=== PATIENT | male | born 1955 | race Caucasian/White ===

== ENCOUNTER 2018-03-02 10:56 | Inpatient (IN) | payer BC ==
[~2018-03-02] VITALS: Ht 177.8 cm; Wt 87.8 kg
--- NOTE | 2018-03-02 11:13 | EKG ---
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
[2018-03-02] MEDS ORDERED: IV NORMAL SALINE 1000ML BAG 1,000 ML IV ONE (11:15)
--- NOTE | 2018-03-02 11:25 | PHYS DOC ---
Adult General HPI HPI Patient is a 62 year old male who presents with chest pain. Patient had onset of chest pressure earlier this morning about 90 minutes prior to presentation. The pain came on suddenly. The pain has been constant but has waxed and waned in intensity since onset. Pain is nonradiating. He did not feel short of breath. Patient does have prior history of stent placement 2. He has known high blood pressure but is currently not treated. He does use tobacco. And route to the hospital, the patient received aspirin per EMS. He had an inch of Nitropaste placed on his chest. Review of Systems Review of Systems Constitutional: Denies fever or chills Eyes: Denies change in visual acuity HENT: Denies nasal congestion Respiratory: Denies cough Cardiovascular: No additional information not addressed in HPI GI: Denies abdominal pain, nausea, vomiting Musculoskeletal: Denies back pain or joint pain Integument: Denies rash Neurologic: Denies headache Endocrine: Denies polyuria All other systems were reviewed and found to be within normal limits, except as documented in this note. Current Medications Current Medications Current Medications Medications (Trade) Dose Ordered Sig/Brian Start Time Stop Time Status Last Admin Dose Admin Heparin Sodium (Porcine) (Heparin Sodium) 4,000 unit 1X ONCE 03/02/18 12:15 03/02/18 12:16 DC 03/02/18 12:32 4,000 UNIT Heparin Sodium/ Dextrose 500 ml @ 0 mls/hr CONT PRN 03/02/18 12:15 03/02/18 12:33 20 MLS/HR Morphine Sulfate (Morphine Sulfate) 4 mg PRN Q2HR PRN 03/02/18 12:15 03/03/18 12:14 03/02/18 12:29 4 MG Nitroglycerin (Nitrostat) 0.4 mg PRN Q5MIN PRN 03/02/18 12:15 03/03/18 12:14 Ondansetron HCl (Zofran) 4 mg PRN Q8HRS PRN 03/02/18 12:15 03/03/18 12:14 Sodium Chloride 1,000 ml @ 75 mls/hr [id number] 03/02/18 12:08 03/03/18 12:07 Allergies Allergies Allergies Coded Allergies Type Severity Reaction Last Updated Verified No Known Drug Allergies 03/02/18 No Physical Exam Physical Exam Constitutional: Well developed, well nourished, no acute distress, non-toxic appearance HENT: Normocephalic, atraumatic, bilateral external ears normal, oropharynx moist Eyes: PERRLA, EOMI, conjunctiva normal, no discharge Neck: Normal range of motion Cardiovascular:Heart rate regular rhythm, no murmur Lungs & Thorax: Bilateral breath sounds clear to auscultation Abdomen: Bowel sounds normal, soft, no tenderness Skin: Warm, dry Back: No tenderness Extremities: No edema Neurologic: Alert and oriented X 3 Psychologic: Affect normal Current Patient Data Vital Signs Vital Signs Date Time Temp Pulse Resp B/P (MAP) Pulse Ox O2 Delivery O2 Flow Rate FiO2 03/02/18 12:29 20 03/02/18 10:56 97.7 150 186/124 (144) 99 Room Air 97.7 Lab Values Laboratory Tests Test 03/02/18 11:15 White Blood Count 11.1 x10^3/uL (4.0-11.0) H Red Blood Count 4.67 x10^6/uL (4.30-5.70) Hemoglobin 14.0 g/dL (13.0-17.5) Hematocrit 40.3 % (39.0-53.0) Mean Corpuscular Volume 86 fL (79-100) Mean Corpuscular Hemoglobin 30 pg (25-35) Mean Corpuscular Hemoglobin Concent 35 g/dL (31-37) Red Cell Distribution Width 14.8 % (11.5-14.5) H Platelet Count 372 x10^3/uL (140-400) Neutrophils (%) (Auto) 71 % (31-73) Lymphocytes (%) (Auto) 19 % (24-48) L Monocytes (%) (Auto) 8 % (0-9) Eosinophils (%) (Auto) 1 % (0-3) Basophils (%) (Auto) 1 % (0-3) Neutrophils # (Auto) 7.8 x10^3uL (1.8-7.7) H Lymphocytes # (Auto) 2.2 x10^3/uL (1.0-4.8) Monocytes # (Auto) 0.9 x10^3/uL (0.0-1.1) Eosinophils # (Auto) 0.1 x10^3/uL (0.0-0.7) Basophils # (Auto) 0.1 x10^3/uL (0.0-0.2) Prothrombin Time 12.7 SEC (11.7-14.0) Prothrombin Time INR 1.0 (0.8-1.1) PTT 22 SEC (24-38) L D-Dimer (Renetta) 0.40 ug/mlFEU (0.00-0.50) Sodium Level 141 mmol/L (136-145) Potassium Level 3.9 mmol/L (3.5-5.1) Chloride Level 105 mmol/L (98-107) Carbon Dioxide Level 25 mmol/L (21-32) Anion Gap 11 (6-14) Blood Urea Nitrogen 22 mg/dL (8-26) Creatinine 1.0 mg/dL (0.7-1.3) Estimated GFR (Cockcroft-Gault) 75.5 Glucose Level 138 mg/dL (70-99) H Calcium Level 9.2 mg/dL (8.5-10.1) Troponin I Quantitative 0.099 ng/mL (0.000-0.055) FA-Nnc-F-Type Natriuretic Peptide 17 pg/mL (0-124) Laboratory Tests 03/02/18 11:15 Laboratory Tests 03/02/18 11:15 EKG EKG Sinus Tachy, No STEMI Interpretation Time: 11:05 Radiology/Procedures Radiology/Procedures CXR: no acute findings Course & Med Decision Making Course & Med Decision Making Pertinent Labs and Imaging studies reviewed. (See chart for details) Patient is seen and examined for chest pain. His pain is currently 1/10. He has nitroglycerin in place. His EKG is revealing for sinus tachycardia. IV fluids are ordered. Standard cardiac workup is ordered. 12:25: All results are reviewed. The patient has mildly elevated troponin of 0.099. His EKG does not reveal any acute ST changes concerning for ischemia at this time. I spoke to cardiology about this patient who will consult. The patient had already been given aspirin. Heparin bolus and drip are ordered. Plan of care including admission is discussed with the patient and his family and they're currently agreeable. The patient also currently is free from pain. Bridge orders placed. Spoke to Dr. Newotn who will primarily admit. Leonardo Disclaimer Leonardo Disclaimer This electronic medical record was generated, in whole or in part, using a voice recognition dictation system. Departure Departure Referrals: NO PCP (PCP) JAMES CHAUDHARI DO Mar 02, 2018 11:25
[2018-03-02 11:31] LABS: BASO # 0.1 x10^3/uL (0.0-0.2); BASO % 1 % (0-3); EOS # 0.1 x10^3/uL (0.0-0.7); EOS % 1 % (0-3); HEMATOCRIT 40.3 % (39.0-53.0); LYMPH # 2.2 x10^3/uL (1.0-4.8); LYMPH % 19 % (24-48); MEAN CORPUSCULAR HEMOGLOBIN 30 pg (25-35); MEAN CORPUSCULAR HGB CONC 35 g/dL (31-37); MEAN CORPUSCULAR VOLUME 86 fL (79-100); MONO # 0.9 x10^3/uL (0.0-1.1); MONO % 8 % (0-9); NEUT # 7.8 x10^3uL (1.8-7.7); NEUT % 71 % (31-73); PLATELET COUNT 372 x10^3/uL (140-400); RED BLOOD COUNT 4.67 x10^6/uL (4.30-5.70); RED CELL DISTRIBUTION WIDTH 14.8 % (11.5-14.5); WHITE BLOOD COUNT 11.1 x10^3/uL (4.0-11.0)
[2018-03-02 11:34] LABS: CALCIUM 9.2 mg/dL (8.5-10.1); GFR 75.5; POTASSIUM 3.9 mmol/L (3.5-5.1)
[2018-03-02 11:40] LABS: PROTHROMBIN TIME PATIENT 12.7 SEC (11.7-14.0)
--- NOTE | 2018-03-02 11:53 | EKG ---
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
[2018-03-02 11:55] LABS: D-DIMER 0.4 ug/mlFEU (0.00-0.50)
[2018-03-02] MEDS: IV NORMAL SALINE 1000ML BAG 1,000 ML IV SCH ×2 (12:08→20:37)
--- NOTE | 2018-03-02 12:11 | RAD ---
PORTABLE CHEST 1V History: CHEST PAIN TODAY Comparison: None available Findings: Single view of the chest is submitted. There is no infiltrate, pneumothorax, or effusion. The pericardial cardiac silhouette is within normal limits in size. There is probable mild atherosclerotic calcification left carotid artery in the neck. Impression: 1. There is no evidence of acute cardiopulmonary disease. Electronically signed by: Oz Daigle MD (03/02/2018 12:08 PM) [id number]
[2018-03-02] MEDS ORDERED: ONDANSETRON PF 4 MG/2 ML VIAL. IV PRN (12:15)
[2018-03-02] MEDS ORDERED: HEPARIN 25,000UTS/500ML PREMIX 500 ML IV PRN (12:15)
[2018-03-02] MEDS ORDERED: MORPHINE SULFATE 4 MG/ML VIAL. IV PRN (12:15)
[2018-03-02] MEDS ORDERED: NITROGLYCERIN SUBLINGUAL 0.4 MG BOTTLE OF 25. SL PRN (12:15)
[2018-03-02] MEDS ORDERED: HEPARIN for IV BOLUS 10,000 UNIT/10 ML VIAL. IV ONE (12:15)
--- NOTE | 2018-03-02 13:16 | PDOC1 ---
History and Physical Date of Admission Date of Admission DATE: 03/02/18 TIME: 13:16 Identification/Chief Complaint Chief Complaint seen in ER, onset of chest pressure earlier this morning about 90 minutes prior to presentation. has been constant but has waxed and waned in intensity since onset. Pain is nonradiating. He did not feel short of breath. Patient does have prior history of stent placement 2 FOUND TO HAVE ELEVATED TROPONIN I, NSTEMI. Past Medical History Cardiovascular: CAD Pulmonary: COPD GI: No pertinent hx Past Surgical History Past Surgical History: Other Family History Family History: Heart Disease Social History Smoke: <1 pack per day ALCOHOL: occassional Drugs: None Current Problem List Problem List Problems Medical Problems: (1) NSTEMI (non-ST elevated myocardial infarction) Status: Acute Current Medications Current Medications Current Medications Sodium Chloride 1,000 ml @ 1,000 mls/hr 1X ONCE IV Last administered on 03/02at 12:07; Start 03/02/18 at 11:15; Stop 03/02/18 at 12:14; Status DC Heparin Sodium (Porcine) (Heparin Sodium) 4,000 unit 1X ONCE IV Last administered on 03/02/18at 12:32; Start 03/02/18 at 12:15; Stop 03/02/18 at 12 :16; Status DC Heparin Sodium/ Dextrose 500 ml @ 0 mls/hr CONT PRN IV SEE I/O RECORD Last administered on 03/02/18at 12:33; Start 03/02/18 at 12:15 Ondansetron HCl (Zofran) 4 mg PRN Q8HRS PRN IV NAUSEA/VOMITING; Start at 12:15; Stop 03/03/18 at 12:14 Morphine Sulfate (Morphine Sulfate) 4 mg PRN Q2HR PRN IV PAIN Last administered on 03/02/18at 12:29; Start 03/02/18 at 12:15; Stop 03/03/18 at 12 :14 Sodium Chloride 1,000 ml @ 75 mls/hr [id number] IV ; Start 03/02/18 at 12:08; Stop 03/03/18 at 12:07 Nitroglycerin (Nitrostat) 0.4 mg PRN Q5MIN PRN SL CHEST PAIN; Start 03/02/18 at 12:15; Stop 03/03/18 at 12:14 Allergies Allergies: Coded Allergies: No Known Drug Allergies (Unverified , 03/02/18) ROS Review of System Review of Systems Review of Systems Constitutional: Denies fever or chills Eyes: Denies change in visual acuity HENT: Denies nasal congestion Respiratory: MILD cough Cardiovascular: No additional information not addressed in HPI GI: Denies abdominal pain, nausea, vomiting Musculoskeletal: Denies back pain or joint pain Integument: Denies rash Neurologic: Denies headache Endocrine: Denies polyuria 14 PT systems were reviewed and found to be within normal limits, except as documented. General: No: Chills, Night Sweats, Fatigue, Malaise, Appetite, Other Cardiovascular: yes Chest Pain Gastrointestinal: No Nausea, No Vomiting, No Abdominal Pain, No Diarrhea, No Constipation, No Melena, No Hematochezia, No Other Neurological: No Behavorial Changes, No Bowel/Bladder ControlChng, No Confusion , No Dizziness, No Gait Disturbance, No Headaches, No Impaired Coord/balance, No Memory Loss, No Numbness/Tingling, No Seizures, No Speech Problems, No Tremors, No Visual Changes, No Weakness, No Other Vitals Vitals Vital Signs Date Time Temp Pulse Resp B/P (MAP) Pulse Ox O2 Delivery O2 Flow Rate FiO2 03/02/18 12:29 20 03/02/18 10:56 97.7 150 186/124 (144) 99 Room Air 97.7 Labs Labs Laboratory Tests Test 03/02/18 11:15 White Blood Count 11.1 x10^3/uL (4.0-11.0) Red Blood Count 4.67 x10^6/uL (4.30-5.70) Hemoglobin 14.0 g/dL (13.0-17.5) Hematocrit 40.3 % (39.0-53.0) Mean Corpuscular Volume 86 fL (79-100) Mean Corpuscular Hemoglobin 30 pg (25-35) Mean Corpuscular Hemoglobin Concent 35 g/dL (31-37) Red Cell Distribution Width 14.8 % (11.5-14.5) Platelet Count 372 x10^3/uL (140-400) Neutrophils (%) (Auto) 71 % (31-73) Lymphocytes (%) (Auto) 19 % (24-48) Monocytes (%) (Auto) 8 % (0-9) Eosinophils (%) (Auto) 1 % (0-3) Basophils (%) (Auto) 1 % (0-3) Neutrophils # (Auto) 7.8 x10^3uL (1.8-7.7) Lymphocytes # (Auto) 2.2 x10^3/uL (1.0-4.8) Monocytes # (Auto) 0.9 x10^3/uL (0.0-1.1) Eosinophils # (Auto) 0.1 x10^3/uL (0.0-0.7) Basophils # (Auto) 0.1 x10^3/uL (0.0-0.2) Prothrombin Time 12.7 SEC (11.7-14.0) Prothromb Time International Ratio 1.0 (0.8-1.1) Activated Partial Thromboplast Time 22 SEC (24-38) D-Dimer (Renetta) 0.40 ug/mlFEU (0.00-0.50) Sodium Level 141 mmol/L (136-145) Potassium Level 3.9 mmol/L (3.5-5.1) Chloride Level 105 mmol/L (98-107) Carbon Dioxide Level 25 mmol/L (21-32) Anion Gap 11 (6-14) Blood Urea Nitrogen 22 mg/dL (8-26) Creatinine 1.0 mg/dL (0.7-1.3) Estimated GFR (Cockcroft-Gault) 75.5 Glucose Level 138 mg/dL (70-99) Calcium Level 9.2 mg/dL (8.5-10.1) Troponin I Quantitative 0.099 ng/mL (0.000-0.055) OT-Oyh-R-Type Natriuretic Peptide 17 pg/mL (0-124) Laboratory Tests Test 03/02/18 11:15 White Blood Count 11.1 x10^3/uL (4.0-11.0) Red Blood Count 4.67 x10^6/uL (4.30-5.70) Hemoglobin 14.0 g/dL (13.0-17.5) Hematocrit 40.3 % (39.0-53.0) Mean Corpuscular Volume 86 fL (79-100) Mean Corpuscular Hemoglobin 30 pg (25-35) Mean Corpuscular Hemoglobin Concent 35 g/dL (31-37) Red Cell Distribution Width 14.8 % (11.5-14.5) Platelet Count 372 x10^3/uL (140-400) Neutrophils (%) (Auto) 71 % (31-73) Lymphocytes (%) (Auto) 19 % (24-48) Monocytes (%) (Auto) 8 % (0-9) Eosinophils (%) (Auto) 1 % (0-3) Basophils (%) (Auto) 1 % (0-3) Neutrophils # (Auto) 7.8 x10^3uL (1.8-7.7) Lymphocytes # (Auto) 2.2 x10^3/uL (1.0-4.8) Monocytes # (Auto) 0.9 x10^3/uL (0.0-1.1) Eosinophils # (Auto) 0.1 x10^3/uL (0.0-0.7) Basophils # (Auto) 0.1 x10^3/uL (0.0-0.2) Prothrombin Time 12.7 SEC (11.7-14.0) Prothromb Time International Ratio 1.0 (0.8-1.1) Activated Partial Thromboplast Time 22 SEC (24-38) D-Dimer (Renetta) 0.40 ug/mlFEU (0.00-0.50) Sodium Level 141 mmol/L (136-145) Potassium Level 3.9 mmol/L (3.5-5.1) Chloride Level 105 mmol/L (98-107) Carbon Dioxide Level 25 mmol/L (21-32) Anion Gap 11 (6-14) Blood Urea Nitrogen 22 mg/dL (8-26) Creatinine 1.0 mg/dL (0.7-1.3) Estimated GFR (Cockcroft-Gault) 75.5 Glucose Level 138 mg/dL (70-99) Calcium Level 9.2 mg/dL (8.5-10.1) Troponin I Quantitative 0.099 ng/mL (0.000-0.055) SL-Gdl-B-Type Natriuretic Peptide 17 pg/mL (0-124) VTE Prophylaxis Ordered VTE Prophylaxis Devices: Yes VTE Pharmacological Prophylaxi: Yes Assessment/Plan Assessment/Plan ASSESSMENT 1. NSTEMI: 2. Accelerated HTN: 3. CAD: PCI/stents in 2010 4. Noncompliance: has not taken his meds f 5. HLP 6. 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 small AAA: PLAN 1. ASA, Heparin drip 2. LHC 3. NTG paste. , Labetolol IV PRN 4. TTE, trend troponin. Abd US 5. EDUCATED ON NEED OF SMOKING CESSATION JAN AMAYA MD Mar 02, 2018 13:16
[2018-03-02 14:41] VITALS: BP 133/82
--- NOTE | 2018-03-02 15:33 | PDOC2 ---
TOMÁS RON MAKE UP OPERATOR HELPER 03/02/18 1533: CARDIAC CONSULT DATE OF CONSULT Date of Consult DATE: 03/02/18 TIME: 1450 REASON FOR CONSULT Reason for Consult: NSTEMI REFERRING PHYSICIAN Referring Physician: Roscoe SOURCE Source: Chart review, Patient HISTORY OF PRESENT ILLNESS HISTORY OF PRESENT ILLNESS This is a pleasant 62 yo male admitted for complains of chest pain. In the last 2 weeks he has been having exertional chest pain. But this is relieved with rest. Also at times with nausea. Also associated SOA. Today he was having chest pain while at rest describing it as pressure which radiated to his jaw. This happened at work. He has hx of CAD with at least 2 stents in 2010. He has not seen a pharmacist's aide in 6 years and has not taken any medications for about 3 years. PAST MEDICAL HISTORY Cardiovascular: CAD, HTN, Hyperlipidemia Pulmonary: No pertinent hx CENTRAL NERVOUS SYSTEM: Other (guillan [place]) GI: No pertinent hx Heme/Onc: No pertinent hx Hepatobiliary: No pertinent hx Psych: No pertinent hx Musculoskeletal: Osteoarthritis Rheumatologic: No pertinent hx ENT: No pertinent hx PAST SURGICAL HISTORY Past Surgical History: Other (PCI/stents 2010; ) SOCIAL HISTORY Smoke: <1 pack per day (>40 yrs) ALCOHOL: occassional Drugs: None Lives: with Family CURRENT MEDICATIONS CURRENT MEDICATIONS Current Medications Medications (Trade) Dose Ordered Sig/Brian Route PRN Reason Start Time Stop Time Status Last Admin Dose Admin Sodium Chloride 1,000 ml @ 1,000 mls/hr 1X ONCE IV 03/02/18 11:15 03/02/18 12:14 DC 03/02/18 12:07 Heparin Sodium (Porcine) (Heparin Sodium) 4,000 unit 1X ONCE IV 03/02/18 12:15 03/02/18 12:16 DC 03/02/18 12:32 Heparin Sodium/ Dextrose 500 ml @ 0 mls/hr CONT PRN IV SEE I/O RECORD 03/02/18 12:15 03/02/18 12:33 Morphine Sulfate (Morphine Sulfate) 4 mg PRN Q2HR PRN IV PAIN 03/02/18 12:15 03/03/18 12:14 03/02/18 12:29 ALLERGIES ALLERGIES: Coded Allergies: No Known Drug Allergies (Unverified , 03/02/18) ROS Review of System 14 point ROS evaluated with pertinent positives noted per HPI PHYSICAL EXAM General: Alert, Oriented X3, Cooperative, No acute distress HEENT: Atraumatic, Mucous membr. moist/pink Lungs: Clear to auscultation, Normal air movement Heart: Regular rate (SR), Normal S1, Normal S2, Other (2/6 systolic murmur to LLS border) Abdomen: Soft, No tenderness Extremities: No cyanosis, No edema Skin: No breakdown, No significant lesion Neuro: Normal speech, Sensation intact Psych/Mental Status: Mental status NL, Mood NL MUSCULOSKELETAL: Osteoarthritic changes both hands VITALS VITALS Vital Signs Date Time Temp Pulse Resp B/P (MAP) Pulse Ox O2 Delivery O2 Flow Rate FiO2 03/02/18 14:41 97.9 86 18 133/82 (99) 92 Room Air 97.9 LABS Lab: Laboratory Tests Test 03/02/18 11:15 White Blood Count 11.1 x10^3/uL (4.0-11.0) Red Blood Count 4.67 x10^6/uL (4.30-5.70) Hemoglobin 14.0 g/dL (13.0-17.5) Hematocrit 40.3 % (39.0-53.0) Mean Corpuscular Volume 86 fL (79-100) Mean Corpuscular Hemoglobin 30 pg (25-35) Mean Corpuscular Hemoglobin Concent 35 g/dL (31-37) Red Cell Distribution Width 14.8 % (11.5-14.5) Platelet Count 372 x10^3/uL (140-400) Neutrophils (%) (Auto) 71 % (31-73) Lymphocytes (%) (Auto) 19 % (24-48) Monocytes (%) (Auto) 8 % (0-9) Eosinophils (%) (Auto) 1 % (0-3) Basophils (%) (Auto) 1 % (0-3) Neutrophils # (Auto) 7.8 x10^3uL (1.8-7.7) Lymphocytes # (Auto) 2.2 x10^3/uL (1.0-4.8) Monocytes # (Auto) 0.9 x10^3/uL (0.0-1.1) Eosinophils # (Auto) 0.1 x10^3/uL (0.0-0.7) Basophils # (Auto) 0.1 x10^3/uL (0.0-0.2) Prothrombin Time 12.7 SEC (11.7-14.0) Prothromb Time International Ratio 1.0 (0.8-1.1) Activated Partial Thromboplast Time 22 SEC (24-38) D-Dimer (Renetta) 0.40 ug/mlFEU (0.00-0.50) Sodium Level 141 mmol/L (136-145) Potassium Level 3.9 mmol/L (3.5-5.1) Chloride Level 105 mmol/L (98-107) Carbon Dioxide Level 25 mmol/L (21-32) Anion Gap 11 (6-14) Blood Urea Nitrogen 22 mg/dL (8-26) Creatinine 1.0 mg/dL (0.7-1.3) Estimated GFR (Cockcroft-Gault) 75.5 Glucose Level 138 mg/dL (70-99) Calcium Level 9.2 mg/dL (8.5-10.1) Troponin I Quantitative 0.099 ng/mL (0.000-0.055) CB-Wpn-Q-Type Natriuretic Peptide 17 pg/mL (0-124) ASSESSMENT/PLAN ASSESSMENT/PLAN 1. NSTEMI: typical features 2. Accelerated HTN: better with NTG paste 3. CAD: PCI/stents in 2010 4. Noncompliance: has not taken his meds for 3 years and last follow up was 6 yrs ago with cardiology 5. HLP 6. 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 Past hx of small AAA: noted several years ago. Recommendations 1. ASA, Heparin drip 2. LHC possibly today, risks and benefits discussed and agreeable to proceed. 3. Continue with NTG paste. Will evaluate BP med needs post LHC. Labetolol IV PRN 4. lipids, TTE, trend troponin. Abd US to note AAA. CHELSEY HINOJOSA MD 03/02/18 8302: CARDIAC CONSULT ASSESSMENT/PLAN ASSESSMENT/PLAN Pt. seen and examined. 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 Patient with NSTEMI. Typical symptoms Normal exam Plan for LHC in a.m. COntinue anticoagulation. TOMÁS RON APRN Mar 02, 2018 15:33 CHELSEY HINOJOSA MD Mar 02, 2018 22:55
[2018-03-02] MEDS ORDERED: LABETALOL 20 MG/4 ML DISP.SYRIN. IVP PRN (15:45)
[2018-03-02] MEDS: ASPIRIN ENTERIC COATED 81 MG TABLET.DR. PO SCH (16:00)
[2018-03-02] MEDS: NITROGLYCERIN OINT 1 GM PACKET. TP SCH (16:00)
--- NOTE | 2018-03-02 16:56 | CARD ---
MR#: [id number] Date of Study: 03/02/2018 Ordering Physician: TOMÁS RON, Referring Physician: JAN AMAYA, Tech: Lena Echeverria APPROVED REPORT EXAM: Two-dimensional and M-mode echocardiogram with Doppler and color Doppler. Other Information Quality : GoodHR: 68bpm Rhythm : NSR INDICATION Chest Pain Non STEMI 2D DIMENSIONS RVDd3.7 (2.9-3.5cm)Left Atrium(2D)3.9 (1.6-4.0cm) IVSd1.3 (0.7-1.1cm)Aortic Root(2D)3.4 (2.0-3.7cm) LVDd4.7 (3.9-5.9cm)LVOT Diameter2.1 (1.8-2.4cm) PWd1.0 (0.7-1.1cm)LVDs3.1 (2.5-4.0cm) FS (%) 35.1 %SV66.4 ml LVEF(%)64.4 (>50%) Aortic Valve AoV Peak Fernandez.126.0cm/sAoV VTI26.0cm AO Peak GR.6.3mmHgLVOT Peak Fernandez.80.2cm/s AO Mean GR.4mmHgAVA (VMAX)2.30cm2 Mitral Valve MV E Mxrbqsgx54.4cm/sMV DECEL [id number] MV A Whwwguiy11.0cm/sE/A Ratio0.9 Pulmonary Valve PV Peak Ktulpkgn52.7cm/s Tricuspid Valve TR P. Ihbozylx395cv/sRAP GYPAWQQI2rxMp TR Peak Gr.72azLnYVCO74naTm Pulmonary Vein S1 Yfyujrsg97.5cm/sD2 Bxnophrh60.0cm/s PVa rqlaavih472gorn LEFT VENTRICLE The left ventricle is normal size. There is mild concentric left ventricular hypertrophy. The left ve ntricular systolic function is normal. The Ejection Fraction is 50-55%. There is normal LV segmental wall motion. Transmitral Doppler flow pattern is Grade I-abnormal relaxation pattern. RIGHT VENTRICLE The right ventricle is normal size. There is normal right ventricular wall thickness. The right ventr icular systolic function is normal. ATRIA The left atrium size is normal. The right atrium size is normal. The interatrial septum is intact wit h no evidence for an atrial septal defect or patent foramen ovale as noted on 2-D or Doppler imaging. AORTIC VALVE The aortic valve is thickened but opens well. Doppler and Color Flow revealed trace aortic regurgitat ion. There is no significant aortic valvular stenosis. MITRAL VALVE The mitral valve is normal in structure and function. There is no mitral valve stenosis. Doppler and Color-flow revealed trace mitral regurgitation. TRICUSPID VALVE The tricuspid valve is normal in structure and function. Doppler and Color Flow revealed trace tricus pid regurgitation. There is no tricuspid valve stenosis. PULMONIC VALVE The pulmonary valve is normal in structure and function. Doppler and Color Flow revealed mild pulmoni c valvular regurgitation. GREAT VESSELS The aortic root is normal in size. The IVC is normal in size and collapses >50% with inspiration. PERICARDIAL EFFUSION There is no evidence of significant pericardial effusion. Critical Notification Critical Value: No <Conclusion> The left ventricular systolic function is normal. The Ejection Fraction is 50-55%. There is normal LV segmental wall motion. Transmitral Doppler flow pattern is Grade I-abnormal relaxation pattern. Trace mitral regurgitation. Trace tricuspid regurgitation. There is no evidence of significant pericardial effusion. Signed by : Julio Cesar Motta, Electronically Approved : 03/02/2018 16:56:10
[2018-03-02 19:00] VITALS: BP 138/72
[2018-03-02] MEDS ORDERED: HEPARIN for IV BOLUS 10,000 UNIT/10 ML VIAL. IV PRN (20:30)
[2018-03-02 23:00] VITALS: BP 134/75
[2018-03-03] VITALS (15 sets, daily range): BP systolic 127–179; BP diastolic 78–98
[2018-03-03 02:11] LABS: HEMATOCRIT 36.3 % (39.0-53.0); HEMOGLOBIN 12.7 g/dL (13.0-17.5); RED BLOOD COUNT 4.22 x10^6/uL (4.30-5.70); RED CELL DISTRIBUTION WIDTH 14.8 % (11.5-14.5); WHITE BLOOD COUNT 11.4 x10^3/uL (4.0-11.0)
[2018-03-03 02:32] LABS: CHOLESTEROL/HDL RATIO 8.4
[2018-03-03] MEDS: NITROGLYCERIN OINT 1 GM PACKET. TP SCH ×4 (05:46→16:24)
[2018-03-03] MEDS ORDERED: IOHEXOL 300 MG/ML 100ML VIAL. ONE ×2 (07:11→08:50)
[2018-03-03] MEDS ORDERED: LIDOCAINE 1% PF 30 ML VIAL. ONE ×2 (07:11)
[2018-03-03] MEDS: ASPIRIN ENTERIC COATED 81 MG TABLET.DR. PO SCH (07:58)
[2018-03-03] MEDS ORDERED: fentaNYL PF VIAL 100 MCG/2 ML VIAL ONE (08:06)
[2018-03-03] MEDS ORDERED: MIDAZOLAM HCL/PF 2 MG/2 ML VIAL. ONE ×3 (08:06→09:14)
--- NOTE | 2018-03-03 08:27 | PDOC ---
MODERATE SEDATION ASSESSMENT RISKS/ALTERNATIVES Risks/Alternatives Risks and alternatives of this type of sedation and procedure discussed with: RISK/ALTERNATIVES: Patient H & P ON CHART H & P H & P on chart and reviewed for co-morbid conditions and appropriate labs. H&P ON CHART: Yes STATUS PREG STATUS ASSESSED: N/A MEDS/ALLERGIES REVIEWED Meds/Allergies Reviewed Medications and Allergies including time and route of recently administered narcotics and sedatives. MEDS/ALLERGIES REVIEWED: Yes ASA RATING ASA RATING: II AIRWAY ASSESSMENT Airway Assessment Airway patency, oral function limitations, presence of caps, crowns, dentures, partials, and ability to extend neck assessed. AIRWAY ASSESSMENT: Yes MALLAMPATI SCORE MALLAMPATI SCORE: II PRE-SEDATION ASSESSMENT PRE-SEDATION ASSESSMENT: Yes SHANICE PRESCOTT MD Mar 03, 2018 08:27
[2018-03-03] MEDS ORDERED: BIVALIRUDIN 250 MG VIAL. IV ONE ×2 (08:50→09:30)
[2018-03-03] MEDS ORDERED: MIDAZOLAM HCL/PF 2 MG/2 ML VIAL. IV ONE (09:01)
[2018-03-03] MEDS ORDERED: ATROPINE 1 MG/10 ML DISP.SYRINGE. ONE (09:12)
[2018-03-03] MEDS ORDERED: CLOPIDOGREL BISULFATE 75 MG TABLET ONE (09:19)
[2018-03-03] MEDS ORDERED: LIDOCAINE 1% PF 30 ML VIAL. INJ ONE (09:30)
[2018-03-03] MEDS ORDERED: CLOPIDOGREL BISULFATE 75 MG TABLET PO ONE (09:30)
[2018-03-03] MEDS ORDERED: fentaNYL PF VIAL 100 MCG/2 ML VIAL IV ONE (09:30)
[2018-03-03] MEDS ORDERED: IOHEXOL 300 MG/ML 100ML VIAL. IART ONE (09:30)
[2018-03-03] MEDS ORDERED: CONTRAST GIVEN. MC PRN (09:45)
[2018-03-03] MEDS ORDERED: 0.9 % SODIUM CHLORIDE 10 ML DISP.SYRIN. IV PRN (10:00)
[2018-03-03] MEDS ORDERED: ACETAMINOPHEN 325 MG TABLET. PO PRN (10:00)
[2018-03-03] MEDS ORDERED: LIDOCAINE 2% 100 MG/5 ML SYRINGE. IV PRN (10:00)
[2018-03-03] MEDS ORDERED: fentaNYL PF VIAL 100 MCG/2 ML VIAL IV PRN (10:00)
[2018-03-03] MEDS ORDERED: NITROGLYCERIN SUBLINGUAL 0.4 MG BOTTLE OF 25. SL PRN (10:00)
[2018-03-03] MEDS ORDERED: AMIODARONE 150 MG in IV DEXTROSE 5% 100ML 100 ML IV PRN (10:00)
[2018-03-03] MEDS ORDERED: ATROPINE 0.5 MG/5 ML DISP.SYRINGE. IV PRN (10:00)
[2018-03-03] MEDS ORDERED: IV NORMAL SALINE 1000ML BAG 1,000 ML IV SCH (10:30)
--- NOTE | 2018-03-03 11:54 | RAD ---
MR#: [id number] Date of Study: 03/03/2018 Ordering Physician: TOMÁS RON, Referring Physician: JAN AMAYA Tech: Carmita Mckoy RT R, CT RDMS AB, T APPROVED REPORT Patient Location: IN-PATIENT Indications eval for AAA Duplex Results A/PTransverseLongitudinal Proximal Aorta 2.6cm2.7cm Mid Aorta 2.6cm Distal Aorta 2.0cm1.7cm Doppler VelocityWaveform Proximal Aorta 75.0 cm/secTriphasic Aorta Mid. 145.0 cm/secTriphasic Distal Aorta 182.0 cm/secTriphasic Rt. Common Iliac Ptulds677.0 cm/secTriphasic Lt. Common Iliac Artery 121.0 cm/secTriphasic Findings Grayscale images of the abdominal aorta were obtained and all of the images are limited no obvious ao rtic aneurysm is noted. Maximum transverse dimension is approximately 2.7 cm. There are moderately el evated velocities at the distal aorta suggestive of mild stenosis. No focal high-grade lesion is iden tified on these limited images. Incidental note is made of of a avascular complex hypoechoic mass in the liver measuring approximate 4.7 cm. Critical Notification Critical Value: No <Conclusion> 1. No focal AAA 2. 4.7 cm liver mass, probable complex cyst. Consider further evaluation with CT scan of abdomen/pelv is. Signed by : Florencio Rankin, Electronically Approved : 03/03/2018 11:53:31
[2018-03-03] MEDS: LISINOPRIL 10 MG TABLET PO SCH (14:13)
[2018-03-03] MEDS: METOPROLOL SUCC 24HR ER 25 MG TAB.ER.24H. PO SCH (14:13)
--- NOTE | 2018-03-03 14:18 | PDOC ---
PROGRESS NOTES History of Present Illness History of Present Illness Assessment/Plan Assessment/Plan ASSESSMENT 1. NSTEMI: 2. Accelerated HTN: 3. CAD: PCI/stents in 2010 4. Noncompliance: has not taken his meds , REINFORCED NEED for daily meds 5. HLP 6. Tobaccoism, CONTINUED 7. Hx of Guillain [place] 8. small AAA: 9. liver mass/cyst PLAN 1. ASA, STENT TO LAD 2. LHC 3. , Labetolol IV PRN 4. TTE, trend troponin. Abd US 5. EDUCATED ON NEED OF SMOKING CESSATION 6. ct abdomen Vitals Vitals Vital Signs Date Time Temp Pulse Resp B/P (MAP) Pulse Ox O2 Delivery O2 Flow Rate FiO2 03/03/18 14:13 65 148/80 03/03/18 11:00 98.6 16 96 Room Air 98.6 03/03/18 10:20 2.0 Physical Exam General: Alert, Oriented X3, Cooperative, No acute distress Heart: Regular rate (SR), Normal S1, Normal S2, Other (2/6 systolic murmur to LLS border) Lungs: Clear Abdomen: Soft, No tenderness Extremities: No cyanosis, No edema Skin: No breakdown, No significant lesion Labs LABS Patient Location: IN-PATIENT Indications eval for AAA Duplex Results A/P Transverse Longitudinal Proximal Aorta 2.6cm 2.7cm Mid Aorta 2.6cm Distal Aorta 2.0cm 1.7cm Doppler Velocity Waveform Proximal Aorta 75.0 cm/sec Triphasic Aorta Mid. 145.0 cm/sec Triphasic Distal Aorta 182.0 cm/sec Triphasic Rt. Common Iliac Artery 133.0 cm/sec Triphasic Lt. Common Iliac Artery 121.0 cm/sec Triphasic Findings Grayscale images of the abdominal aorta were obtained and all of the images are limited no obvious aortic aneurysm is noted. Maximum transverse dimension is approximately 2.7 cm. There are moderately elevated velocities at the distal aorta suggestive of mild stenosis. No focal high-grade lesion is identified on these limited images. Incidental note is made of of a avascular complex hypoechoic mass in the liver measuring approximate 4.7 cm. Critical Notification Critical Value: No <Conclusion> 1. No focal AAA 2. 4.7 cm liver mass, probable complex cyst. Consider further evaluation with CT scan of abdomen/pelvis. Signed by : Florencio Rankin, Electronically Approved : 03/03/2018 11:53:31 Laboratory Tests Test 03/02/18 18:15 03/03/18 00:25 03/03/18 01:55 03/03/18 06:00 Heparin Anti-Xa Act, Unfractionated 0.18 IU/mL (0.30-0.70) 0.25 IU/mL (0.30-0.70) Troponin I Quantitative 6.107 ng/mL (0.000-0.055) 9.106 ng/mL (0.000-0.055) 6.227 ng/mL (0.000-0.055) White Blood Count 11.4 x10^3/uL (4.0-11.0) Red Blood Count 4.22 x10^6/uL (4.30-5.70) Hemoglobin 12.7 g/dL (13.0-17.5) Hematocrit 36.3 % (39.0-53.0) Mean Corpuscular Volume 86 fL (79-100) Mean Corpuscular Hemoglobin 30 pg (25-35) Mean Corpuscular Hemoglobin Concent 35 g/dL (31-37) Red Cell Distribution Width 14.8 % (11.5-14.5) Platelet Count 330 x10^3/uL (140-400) Triglycerides Level 371 mg/dL (0-150) Cholesterol Level 167 mg/dL (0-200) LDL Cholesterol, Calculated 73 mg/dL (0-100) VLDL Cholesterol, Calculated 74 mg/dL (0-40) Non-HDL Cholesterol Calculated 147 mg/dL (0-129) HDL Cholesterol 20 mg/dL (40-60) Cholesterol/HDL Ratio 8.4 Assessment and Plan Assessmemt and Plan Problems Medical Problems: (1) NSTEMI (non-ST elevated myocardial infarction) Status: Acute Comment Review of Relevant I have reviewed the following items lilian (where applicable) has been applied. Labs Laboratory Tests Test 03/02/18 11:15 03/02/18 18:15 03/03/18 00:25 03/03/18 01:55 White Blood Count 11.1 x10^3/uL (4.0-11.0) 11.4 x10^3/uL (4.0-11.0) Red Blood Count 4.67 x10^6/uL (4.30-5.70) 4.22 x10^6/uL (4.30-5.70) Hemoglobin 14.0 g/dL (13.0-17.5) 12.7 g/dL (13.0-17.5) Hematocrit 40.3 % (39.0-53.0) 36.3 % (39.0-53.0) Mean Corpuscular Volume 86 fL (79-100) 86 fL (79-100) Mean Corpuscular Hemoglobin 30 pg (25-35) 30 pg (25-35) Mean Corpuscular Hemoglobin Concent 35 g/dL (31-37) 35 g/dL (31-37) Red Cell Distribution Width 14.8 % (11.5-14.5) 14.8 % (11.5-14.5) Platelet Count 372 x10^3/uL (140-400) 330 x10^3/uL (140-400) Neutrophils (%) (Auto) 71 % (31-73) Lymphocytes (%) (Auto) 19 % (24-48) Monocytes (%) (Auto) 8 % (0-9) Eosinophils (%) (Auto) 1 % (0-3) Basophils (%) (Auto) 1 % (0-3) Neutrophils # (Auto) 7.8 x10^3uL (1.8-7.7) Lymphocytes # (Auto) 2.2 x10^3/uL (1.0-4.8) Monocytes # (Auto) 0.9 x10^3/uL (0.0-1.1) Eosinophils # (Auto) 0.1 x10^3/uL (0.0-0.7) Basophils # (Auto) 0.1 x10^3/uL (0.0-0.2) Prothrombin Time 12.7 SEC (11.7-14.0) Prothromb Time International Ratio 1.0 (0.8-1.1) Activated Partial Thromboplast Time 22 SEC (24-38) D-Dimer (Renetta) 0.40 ug/mlFEU (0.00-0.50) Sodium Level 141 mmol/L (136-145) Potassium Level 3.9 mmol/L (3.5-5.1) Chloride Level 105 mmol/L (98-107) Carbon Dioxide Level 25 mmol/L (21-32) Anion Gap 11 (6-14) Blood Urea Nitrogen 22 mg/dL (8-26) Creatinine 1.0 mg/dL (0.7-1.3) Estimated GFR (Cockcroft-Gault) 75.5 Glucose Level 138 mg/dL (70-99) Calcium Level 9.2 mg/dL (8.5-10.1) Troponin I Quantitative 0.099 ng/mL (0.000-0.055) 6.107 ng/mL (0.000-0.055) 9.106 ng/mL (0.000-0.055) RB-Fdi-O-Type Natriuretic Peptide 17 pg/mL (0-124) Heparin Anti-Xa Act, Unfractionated 0.18 IU/mL (0.30-0.70) 0.25 IU/mL (0.30-0.70) Triglycerides Level 371 mg/dL (0-150) Cholesterol Level 167 mg/dL (0-200) LDL Cholesterol, Calculated 73 mg/dL (0-100) VLDL Cholesterol, Calculated 74 mg/dL (0-40) Non-HDL Cholesterol Calculated 147 mg/dL (0-129) HDL Cholesterol 20 mg/dL (40-60) Cholesterol/HDL Ratio 8.4 Test 03/03/18 06:00 Troponin I Quantitative 6.227 ng/mL (0.000-0.055) Laboratory Tests Test 03/02/18 18:15 03/03/18 00:25 03/03/18 01:55 03/03/18 06:00 Heparin Anti-Xa Act, Unfractionated 0.18 IU/mL (0.30-0.70) 0.25 IU/mL (0.30-0.70) Troponin I Quantitative 6.107 ng/mL (0.000-0.055) 9.106 ng/mL (0.000-0.055) 6.227 ng/mL (0.000-0.055) White Blood Count 11.4 x10^3/uL (4.0-11.0) Red Blood Count 4.22 x10^6/uL (4.30-5.70) Hemoglobin 12.7 g/dL (13.0-17.5) Hematocrit 36.3 % (39.0-53.0) Mean Corpuscular Volume 86 fL (79-100) Mean Corpuscular Hemoglobin 30 pg (25-35) Mean Corpuscular Hemoglobin Concent 35 g/dL (31-37) Red Cell Distribution Width 14.8 % (11.5-14.5) Platelet Count 330 x10^3/uL (140-400) Triglycerides Level 371 mg/dL (0-150) Cholesterol Level 167 mg/dL (0-200) LDL Cholesterol, Calculated 73 mg/dL (0-100) VLDL Cholesterol, Calculated 74 mg/dL (0-40) Non-HDL Cholesterol Calculated 147 mg/dL (0-129) HDL Cholesterol 20 mg/dL (40-60) Cholesterol/HDL Ratio 8.4 Medications Current Medications Sodium Chloride 1,000 ml @ 1,000 mls/hr 1X ONCE IV Last administered on 03/02at 12:07; Start 03/02/18 at 11:15; Stop 03/02/18 at 12:14; Status DC Heparin Sodium (Porcine) (Heparin Sodium) 4,000 unit 1X ONCE IV Last administered on 03/02/18at 12:32; Start 03/02/18 at 12:15; Stop 03/02/18 at 12 :16; Status DC Heparin Sodium/ Dextrose 500 ml @ 0 mls/hr CONT PRN IV SEE I/O RECORD Last administered on 03/02/18at 12:33; Start 03/02/18 at 12:15 Ondansetron HCl (Zofran) 4 mg PRN Q8HRS PRN IV NAUSEA/VOMITING; Start at 12:15; Stop 03/03/18 at 12:14; Status DC Morphine Sulfate (Morphine Sulfate) 4 mg PRN Q2HR PRN IV PAIN Last administered on 03/02/18at 12:29; Start 03/02/18 at 12:15; Stop 03/03/18 at 12 :14; Status DC Sodium Chloride 1,000 ml @ 75 mls/hr [id number] IV Last administered on at 20:37; Start 03/02/18 at 12:08; Stop 03/03/18 at 12:07; Status DC Nitroglycerin (Nitrostat) 0.4 mg PRN Q5MIN PRN SL CHEST PAIN; Start 03/02/18 at 12:15; Stop 03/03/18 at 12:14; Status DC Nitroglycerin (Nitro-Bid Oint) 1 inch Q6HRS TP Last administered on 03/03/18at 05:46; Start 03/02/18 at 16:00 Labetalol HCl (Normodyne Iv Push) 20 mg PRN Q2HR PRN IVP HYPERTENSION, SEE COMMENTS; Start 03/02/18 at 15:45 Aspirin (Ecotrin) 81 mg DAILYWBKFT PO Last administered on 03/03/18at 07:58; Start 03/02/18 at 16:00; Stop 03/03/18 at 09:55; Status DC Heparin Sodium (Porcine) (Heparin Sodium) 2,150 unit PRN Q6HRS PRN IV FOR UFH LEVEL LESS THAN 0.2 Last administered on 03/02/18at 20:41; Start 03/02/18 at 20 :30 Iohexol (Omnipaque 300 Mg/ml) 100 ml STK-MED ONCE .ROUTE ; Start 03/03/18 at 07 :11; Stop 03/03/18 at 07:12; Status DC Lidocaine HCl (Xylocaine 1% Pf 30ml Vial) 30 ml STK-MED ONCE .ROUTE ; Start at 07:11; Stop 03/03/18 at 07:12; Status DC Heparin Sodium/ Sodium Chloride 1,000 ml @ As Directed STK-MED ONCE .ROUTE ; Start 03/03/18 at 07:11; Stop 03/03/18 at 07:12; Status DC Lidocaine HCl (Xylocaine 1% Pf 30ml Vial) 30 ml STK-MED ONCE .ROUTE ; Start at 07:11; Stop 03/03/18 at 07:12; Status DC Fentanyl Citrate (Fentanyl 2ml Vial) 100 mcg STK-MED ONCE .ROUTE ; Start at 08:06; Stop 03/03/18 at 08:07; Status DC Midazolam HCl (Versed) 2 mg STK-MED ONCE .ROUTE ; Start 03/03/18 at 08:06; Stop 03/03/18 at 08:07; Status DC Midazolam HCl (Versed) 2 mg STK-MED ONCE .ROUTE ; Start 03/03/18 at 08:39; Stop 03/03/18 at 08:40; Status DC Bivalirudin (Angiomax) 250 mg STK-MED ONCE IV ; Start 03/03/18 at 08:50; Stop 03/03/18 at 08:51; Status DC Iohexol (Omnipaque 300 Mg/ml) 100 ml STK-MED ONCE .ROUTE ; Start 03/03/18 at 08 :50; Stop 03/03/18 at 08:51; Status DC Heparin Sodium/ Sodium Chloride 500 ml @ As Directed STK-MED ONCE .ROUTE ; Start 03/03/18 at 09:01; Stop 03/03/18 at 09:02; Status DC Atropine Sulfate (ATROPINE 1mg SYRINGE) 1 mg STK-MED ONCE .ROUTE ; Start at 09:12; Stop 03/03/18 at 09:13; Status DC Midazolam HCl (Versed) 2 mg STK-MED ONCE .ROUTE ; Start 03/03/18 at 09:14; Stop 03/03/18 at 09:15; Status DC Clopidogrel Bisulfate (Plavix) 75 mg STK-MED ONCE .ROUTE ; Start 03/03/18 at 09 :19; Stop 03/03/18 at 09:20; Status DC Heparin Sodium/ Sodium Chloride (HEPARIN for ARTERIAL LINE FLUSH) 1,000 unit 1X ONCE IART Last administered on 03/03/18at 09:38; Start 03/03/18 at 09:30; Stop 03/03/18 at 09:31; Status DC Midazolam HCl (Versed) 5 mg 1X ONCE IV Last administered on 03/03/18at 09:37; Start 03/03/18 at 09:01; Stop 03/03/18 at 09:29; Status DC Fentanyl Citrate (Fentanyl 2ml Vial) 62.75 mcg 1X ONCE IV Last administered on 03/03/18at 09:37; Start 03/03/18 at 09:30; Stop 03/03/18 at 09:31; Status DC Iohexol (Omnipaque 300 Mg/ml) 191 ml 1X ONCE IART Last administered on at 09:35; Start 03/03/18 at 09:30; Stop 03/03/18 at 09:31; Status DC Bivalirudin (Angiomax) 250 mg 1X ONCE IV Last administered on 03/03/18at 09:35 ; Start 03/03/18 at 09:30; Stop 03/03/18 at 09:31; Status DC Clopidogrel Bisulfate (Plavix) 600 mg 1X ONCE PO Last administered on at 09:36; Start 03/03/18 at 09:30; Stop 03/03/18 at 09:31; Status DC Lidocaine HCl (Xylocaine 1% Pf 30ml Vial) 20 ml 1X ONCE INJ Last administered on 03/03/18at 09:35; Start 03/03/18 at 09:30; Stop 03/03/18 at 09:31; Status DC Info (CONTRAST GIVEN -- Rx MONITORING) 1 each PRN DAILY PRN MC SEE COMMENTS; Start 03/03/18 at 09:45; Stop 03/05/18 at 09:44 Sodium Chloride (Normal Saline Flush) 3 ml QSHIFT PRN IV AFTER MEDS AND BLOOD DRAWS; Start 03/03/18 at 10:00 Sodium Chloride 1,000 ml @ 75 mls/hr [id number] IV ; Start 03/03/18 at 10:30; Stop 03/03/18 at 10:31; Status DC Aspirin (Ecotrin) 325 mg DAILYWBKFT PO ; Start 03/04/18 at 08:00 Clopidogrel Bisulfate (Plavix) 75 mg DAILYWBKFT PO ; Start 03/04/18 at 08:00 Metoprolol Succinate (Toprol Xl) 25 mg DAILY PO Last administered on at 14:13; Start 03/03/18 at 11:00 Lisinopril (Prinivil) 10 mg DAILY PO Last administered on 03/03/18at 14:13; Start 03/03/18 at 11:00 Atorvastatin Calcium (Lipitor) 20 mg QHS PO ; Start 03/03/18 at 21:00 Acetaminophen (Tylenol) 650 mg PRN Q6HRS PRN PO MILD PAIN / TEMP; Start at 10:00 Fentanyl Citrate (Fentanyl 2ml Vial) 50 mcg PRN Q1HR PRN IV MODERATE OR SEVERE PAIN; Start 03/03/18 at 10:00 Nitroglycerin (Nitrostat) 0.4 mg PRN Q5MIN PRN SL CHEST PAIN; Start 03/03/18 at 10:00 Amiodarone HCl 150 mg/Dextrose 103 ml @ 600 mls/hr 1X PRN PRN IV FOR VENTRICULAR TACHYCARDIA; Start 03/03/18 at 10:00 Lidocaine HCl (Lidocaine HCl 2% Abboject) 100 mg 1X PRN PRN IV FOR VENTRICULAR TACHYCARDIA; Start 03/03/18 at 10:00 Atropine Sulfate (ATROPINE 0.5mg SYRINGE) 0.5 mg PRN 1X PRN IV BRADYCARDIA; Start 03/03/18 at 10:00 Vitals/I & O Vital Sign - Last 24 Hours 03/02/18 03/02/18 03/02/18 03/02/18 14:41 19:00 20:00 23:00 Temp 97.9 98.3 98.3 97.9 98.3 98.3 Pulse 86 70 68 Resp 18 18 16 B/P (MAP) 133/82 (99) 138/72 (94) 134/75 (94) Pulse Ox 92 96 95 O2 Delivery Room Air Nasal Cannula O2 Flow Rate 2.0 03/03/18 03/03/18 03/03/18 03/03/18 00:00 03:00 05:46 07:00 Temp 98.1 98.1 98.1 98.1 Pulse 67 82 71 Resp 18 18 B/P (MAP) 134/75 135/89 (104) 135/89 127/89 (102) Pulse Ox 98 98 03/03/18 03/03/18 03/03/18 03/03/18 08:00 09:37 09:41 10:00 Pulse 70 Resp 18 18 B/P (MAP) 161/89 (113) Pulse Ox 96 96 O2 Delivery Room Air Nasal Cannula Room Air O2 Flow Rate 2.0 03/03/18 03/03/18 03/03/18 03/03/18 10:15 10:20 10:30 10:45 Pulse 73 75 72 B/P (MAP) 160/97 (118) 179/98 (125) 176/95 (122) Pulse Ox 96 O2 Delivery Room Air O2 Flow Rate 2.0 03/03/18 03/03/18 03/03/18 03/03/18 11:00 11:15 11:45 12:45 Temp 98.6 98.6 Pulse 70 68 74 71 Resp 16 B/P (MAP) 161/89 (113) 163/88 (113) 165/80 (108) 168/79 (108) Pulse Ox 96 O2 Delivery Room Air 03/03/18 03/03/1818 13:40 14:13 14:13 Pulse 65 65 65 B/P (MAP) 148/80 (102) 148/80 148/80 Intake and Output 03/02/18 03/02/18 03/03/18 15:01 23:01 07:01 Intake Total 1000 ml 600 ml Output Total 2050 ml Balance 1000 ml -1450 ml JAN AMAYA MD Mar 03, 2018 14:18
--- NOTE | 2018-03-03 15:01 | CARD ---
MR#: [id number] Date of Study: 03/03/2018 Ordering Physician: TOMÁS RON, Referring Physician: JAN AMAYA Tech: JONATHAN EMERY RTR APPROVED REPORT Procedures Left heart catheterization Selective coronary angiogram Left ventriculogram Bare-metal stent to the left anterior descending Abdominal aortic injection The patient is a 62-year-old male with a history of coronary artery disease and previous stents. He i s noncompliant with his medications. Reported approximately 5 days of chest discomfort. He ruled in f or non-ST elevated myocardial infarction. In this setting cardiac catheterization and possible revasc ularization was recommended. Risks and benefits were discussed. The patient agreed to proceed. After informed consent was obtained the patient was brought to the heart catheterization lab. The are a of the right femoral artery was prepared the usual manner with Betadine, sterile draping and local anesthetic. An 18-gauge needle was used to enter the right femoral artery, a wire placed and a 6 Fren ch sheath placed over the wire. A 6 Cuban JL4 diagnostic catheter was used to engage the left arzate ry system and sequential injections in various views were obtained. A 6 Cuban Kaz right diagnos tic catheter was used to engage the right coronary artery and sequential injections in various views were obtained. At this time images were reviewed and a 95% mid LAD lesion prior to a previously place d stent was identified. We proceeded to revascularize the LAD. Angiomax as per protocol was administered. A 6 Cuban XB 3.5 guide was used to engage the left system . The LAD lesion was crossed with a PT choice wire. Initial dilatation was with a 3.0 x 15 Euphora b alloon with 3 inflations at 8 arabella for 15 seconds. This area was then stented with a 4.0 x 28 mm Multi Link bare metal vision stent with one inflation at 15 arabella for 15 seconds. Residual lesion was 0%. The guiding system was removed from the patient. A pigtail catheter was advanced into ascending aorta an d then the left ventricle. Pressures were obtained. A 30 RICH left ventriculogram was performed. Pull back pressures were measured. The pigtail was moved to the abdominal aorta and an abdominal aortic in jection was performed. The catheter was removed from the patient. Injection the sheath showed accepta ble placement. The sheath was then removed and sealed with an Angio-Seal product. The patient was mov ed to the holding area in stable condition. Findings. Hemodynamics. LV pressure of 178/11, 22. Aortic root pressure 174/100. Coronaries. Left main. The left main was a short vessel with no lesions. Left anterior descending. The LAD was a large wraparound vessel. It had a proximal 15% lesion and in its midportion there was a greater than 95% lesion just proximal to a previously placed patent stent. Distally there was a 25% lesion. Left circumflex. The left circumflex was a moderate size vessel. A obtuse marginal 1 branch had a rapid taper to a small vessel. The patient may have had a lesion in t his vessel but this was not clearly demonstrated. Obtuse marginal 2 had diffuse disease in the 30-40% range. The distal left circumflex had a 35% lesion. Right coronary artery. The right coronary was a moderate size vessel. It a mid 35% lesion. Left ventriculogram. The left ventricle showed mild distal anterior apical hypokinesis. Ejection fraction was greater than 55%. Abdominal aortic injection. An injection from the diaphragm distally showed no evidence of an aneurysm. There was distal tapering of the abdominal aorta to 25-30%. <Conclusion> Severe single-vessel coronary artery disease. Moderate disease in the left circumflex and the right coronary artery. Overall intact LV systolic function. No evidence of a significant abdominal aortic aneurysm distal to the diaphragm. Successful bare metal stent placement to the LAD decreasing a greater than 95% lesion to 0%. Signed by : Basim Romero MD Electronically Approved : 03/03/2018 15:00:30
[2018-03-03] MEDS ORDERED: ATORVASTATIN CALCIUM 20 MG TABLET PO SCH (21:00)
[2018-03-04 03:30] VITALS: BP 123/77
[2018-03-04 04:28] LABS: BASO # 0.1 x10^3/uL (0.0-0.2); BASO % 1 % (0-3); EOS # 0.2 x10^3/uL (0.0-0.7); EOS % 2 % (0-3); HEMATOCRIT 38.5 % (39.0-53.0); HEMOGLOBIN 13.6 g/dL (13.0-17.5); LYMPH # 2.3 x10^3/uL (1.0-4.8); LYMPH % 22 % (24-48); MEAN CORPUSCULAR HEMOGLOBIN 30 pg (25-35); MEAN CORPUSCULAR HGB CONC 35 g/dL (31-37); MEAN CORPUSCULAR VOLUME 86 fL (79-100); MONO # 1.1 x10^3/uL (0.0-1.1); MONO % 11 % (0-9); NEUT # 6.7 x10^3uL (1.8-7.7); NEUT % 64 % (31-73); PLATELET COUNT 348 x10^3/uL (140-400); RED CELL DISTRIBUTION WIDTH 14.8 % (11.5-14.5); WHITE BLOOD COUNT 10.3 x10^3/uL (4.0-11.0)
[2018-03-04 04:50] LABS: ALBUMIN 3.4 g/dL (3.4-5.0); ALBUMIN/GLOBULIN RATIO 0.9 (1.0-1.7); CALCIUM 9.1 mg/dL (8.5-10.1); GFR 75.5; POTASSIUM 3.7 mmol/L (3.5-5.1); TOTAL BILIRUBIN 0.3 mg/dL (0.2-1.0); TOTAL PROTEIN 7.1 g/dL (6.4-8.2)
[2018-03-04] MEDS: NITROGLYCERIN OINT 1 GM PACKET. TP SCH ×3 (06:00→12:00)
[2018-03-04 07:00] VITALS: BP 118/66
--- NOTE | 2018-03-04 07:06 | EKG ---
[facility] [address] [place] [address] Test Date: 2018-03-04 Test Time: 06:59:57 Pat Name: HEAVENLY SINGH Department: Room: 207 1 Gender: M Cook Vacuum Kettle: EPHRAIM : 1955 Requested By: BASIM ROMERO Order Number: [id number] Reading MD: Basim Romero Measurements Intervals [place] Rate: 58 P: 52 IN: 204 QRS: 6 QRSD: 82 T: 61 QT: 406 QTc: 402 Interpretive Statements SINUS RHYTHM NO SPECIFIC ECG ABNORMALITIES RI6.01 No previous ECG available for comparison Electronically Signed On 03-08-2018 12:48:17 PERSONNEL OFFICER by Basim Romero
[2018-03-04] MEDS ORDERED: CLOPIDOGREL BISULFATE 75 MG TABLET PO SCH (08:00)
[2018-03-04] MEDS ORDERED: ASPIRIN ENTERIC COATED 325 MG TABLET.DR. PO SCH (08:00)
[2018-03-04] MEDS: METOPROLOL SUCC 24HR ER 25 MG TAB.ER.24H. PO SCH (08:45)
[2018-03-04] MEDS: LISINOPRIL 10 MG TABLET PO SCH (08:46)
[2018-03-04] MEDS ORDERED: IOHEXOL 300 MG/ML 100ML VIAL. ONE (08:55)
[2018-03-04] MEDS ORDERED: IOHEXOL 300 MG/ML 100ML VIAL. IV ONE (09:00)
--- NOTE | 2018-03-04 09:10 | EKG ---
[facility] [address] [place] [address] Test Date: 2018-03-03 Test Time: 14:29:58 Pat Name: HEAVENLY SINGH Department: Room: 207 Gender: M Cardiology Technician: : 1955 Requested By: JAN AMAYA Order Number: [id number] Reading MD: Basim Romero Measurements Intervals [place] Rate: 70 P: 24 ME: 204 QRS: -1 QRSD: 78 T: 106 QT: 374 QTc: 407 Interpretive Statements SINUS RHYTHM LEFTWARD AXIS MILD T ABNORMALITY IN LATERAL LEADS BORDERLINE ECG RI6.01 No previous ECG available for comparison Electronically Signed On 03-08-2018 12:35:28 COAL YARD SUPERVISOR by Basim Romero
[2018-03-04] MEDS ORDERED: CLOP75TA PO (09:49)
[2018-03-04] MEDS ORDERED: ATOR20TA PO (09:50)
[2018-03-04] MEDS ORDERED: METO-239 PO (09:50)
[2018-03-04] MEDS ORDERED: LISI10TA2 PO (09:50)
[2018-03-04] MEDS ORDERED: ASPI325T8 PO (09:50)
[2018-03-04 11:00] VITALS: BP 131/66
--- NOTE | 2018-03-04 11:19 | PDOC ---
TOMÁS RON SENIOR UI DEVELOPER 03/04/18 1119: CARDIO Progress Notes Date and Time Date of Service 03/04/2018 Time of Evaluation 1100 Subjective Subjective: No Chest Pain, No shortness of breath, No Palpitations Vitals Vitals Vital Signs Date Time Temp Pulse Resp B/P (MAP) Pulse Ox O2 Delivery O2 Flow Rate FiO2 03/04/18 08:46 70 03/04/18 07:45 Room Air 03/04/18 07:00 97.8 18 118/66 (83) 97 97.8 03/03/18 10:20 2.0 Weight Weight [ ] Input and Output Intake and Output Intake and Output 03/04/18 07:00 Intake Total 0 ml Output Total 1200 ml Balance -1200 ml Intake Oral 0 ml Output Urine Total 1200 ml Laboratory Labs Laboratory Tests Test 03/04/18 03:20 White Blood Count 10.3 x10^3/uL (4.0-11.0) Red Blood Count 4.50 x10^6/uL (4.30-5.70) Hemoglobin 13.6 g/dL (13.0-17.5) Hematocrit 38.5 % (39.0-53.0) Mean Corpuscular Volume 86 fL (79-100) Mean Corpuscular Hemoglobin 30 pg (25-35) Mean Corpuscular Hemoglobin Concent 35 g/dL (31-37) Red Cell Distribution Width 14.8 % (11.5-14.5) Platelet Count 348 x10^3/uL (140-400) Neutrophils (%) (Auto) 64 % (31-73) Lymphocytes (%) (Auto) 22 % (24-48) Monocytes (%) (Auto) 11 % (0-9) Eosinophils (%) (Auto) 2 % (0-3) Basophils (%) (Auto) 1 % (0-3) Neutrophils # (Auto) 6.7 x10^3uL (1.8-7.7) Lymphocytes # (Auto) 2.3 x10^3/uL (1.0-4.8) Monocytes # (Auto) 1.1 x10^3/uL (0.0-1.1) Eosinophils # (Auto) 0.2 x10^3/uL (0.0-0.7) Basophils # (Auto) 0.1 x10^3/uL (0.0-0.2) Sodium Level 142 mmol/L (136-145) Potassium Level 3.7 mmol/L (3.5-5.1) Chloride Level 104 mmol/L (98-107) Carbon Dioxide Level 28 mmol/L (21-32) Anion Gap 10 (6-14) Blood Urea Nitrogen 14 mg/dL (8-26) Creatinine 1.0 mg/dL (0.7-1.3) Estimated GFR (Cockcroft-Gault) 75.5 BUN/Creatinine Ratio 14 (6-20) Glucose Level 119 mg/dL (70-99) Calcium Level 9.1 mg/dL (8.5-10.1) Total Bilirubin 0.3 mg/dL (0.2-1.0) Aspartate Amino Transf (AST/SGOT) 31 U/L (15-37) Alanine Aminotransferase (ALT/SGPT) 46 U/L (16-63) Alkaline Phosphatase 99 U/L (46-116) Total Protein 7.1 g/dL (6.4-8.2) Albumin 3.4 g/dL (3.4-5.0) Albumin/Globulin Ratio 0.9 (1.0-1.7) Physical Exam HEENT: Neck Supple W Full Motion Chest: Symmetric LUNGS: Clear to Auscultation Heart: S1S2, RRR (SR no rhtyhm ectopies) Abdomen: Soft N/T Extremities: No Edema, No Calf Tenderness Neurology: alert, oriented, follow commands Other Exams Right groin arteriotomy site intact soft and no erythema. Neurovascular status to bilateral LE intact. Assessment Assessment 1. NSTEMI: S/P PCI/BMS to LAD. EF and WM nml 2. Accelerated HTN: controlled 3. CAD: PCI/stents in 2010 4. Noncompliance: has not taken his meds for 3 years and last follow up was 6 yrs ago with cardiology 5. HLP 6. Tobaccoism 7. Hx of Guillain [place] 8. Past hx of verbalized small AAA: 2.[address] 9. Liver mass possible complex cyst 4.7 cm per sono: incidental finding, CT pending. Per PCP Recommendations 1. ASA, Plavix. Continue with secondary prevention- statin/lisinopril/toprol. 2. Smoking cessation. Cardiac rehab and follow up in 4 weeks. Reinforced treatment compliance. CHELSEY HINOJOSA MD 03/04/18 2312: CARDIO Progress Notes Plan Plan Pt. seen and examined, Agree with above PEDIATRIC ASSOCIATE note. Discussed with family about liver hemangioma and need for imaging f/u with PCP. He will f/u for his CAD with our office in 4-6 weeks. THanks TOMÁS RON APRN Mar 04, 2018 11:19 CHELSEY HINOJOSA MD Mar 04, 2018 23:12
[2018-03-04] MEDS ORDERED: ATOR20TA58 PO (11:45)
--- NOTE | 2018-03-04 11:48 | RAD ---
CT ABDOMEN PELVIS WO/W Indication: Hepatic mass. Exposure: One or more of the following individualized dose reduction techniques were utilized for this examination: 1. Automated exposure control 2. Adjustment of the mA and/or kV according to patient size 3. Use of iterative reconstruction technique. Comparison: November 14, 2009 Contrast: Intravenous contrast was given. Scanning performed before contrast, during arterial phase, during portal venous phase and delayed. No oral contrast per request. FINDINGS: Lower thorax: Lung bases are clear. Liver: One or 2 adjacent masses identified in the posterior right lobe of the liver, measures approximately 6 cm diameter. This demonstrates discontinuous nodular enhancement on the arterial phase, with progressive fill-in through the delayed images. The enhancement matches the blood pool density. This is most consistent with a hemangioma. Small flash filling lesion identified in the more lateral right lobe, measures 0.7 cm. Spleen: Unremarkable, small accessory splenule Pancreas: Unremarkable Adrenals: Small right adrenal nodule measures 12 mm. Both adrenals otherwise demonstrate a slightly thickened morphology. Kidneys: No obvious mass. Urinary tracts: No hydronephrosis. Gallbladder: Surgically absent Lymph nodes: No significant enlargement Vessels: Aorta is mildly calcified. Small asymmetric infrarenal abdominal aortic aneurysm towards the left, measures 2.9 cm wide. Most of the aneurysm is thrombosed. This measures slightly larger than on the prior study, it was visualized at that time but measured 2.2 cm wide. There is mild fatty stranding in the right inguinal region and around the right femoral artery. This could be related to recent catheterization procedure. GI tract: No evidence of acute colitis. No evidence of bowel obstruction. Appendix is normal. Reproductive organs: Prostate gland is mildly enlarged measuring about 5 cm wide. Urinary bladder: Unremarkable. Peritoneum: No evidence of pneumoperitoneum. No free fluid. Abdominal wall:Unremarkable Spine: Degenerative spondylosis. Mild anterior spondylolisthesis of L5 on S1, with bilateral L5 spondylolysis. Bones: No destructive process identified. IMPRESSION: 1. One or 2 contiguous lesions in the posterior right lobe liver, most likely representing cavernous hemangioma. Another small flash filling lesion in the more lateral right lobe, also likely a hemangioma. 2. Small aortic aneurysm, measures 2.9 cm wide, slightly increased in size from 2010. 3. Mild fatty stranding in the right inguinal region, may be related to recent catheterization. 4. Small 12 mm right adrenal gland nodule, not seen on prior study. Recommend follow-up CT, versus MRI. Electronically signed by: Gianluca Kaplan MD (03/04/2018 11:44 AM) [facility] [id number]
--- NOTE | 2018-03-04 13:26 | PDOC ---
PROGRESS NOTES Chief Complaint Chief Complaint NSTEMI Accelerated HTN CAD - PCI/stents in 2010 Noncompliance - has not taken his meds HLP Tobaccoism Hx of Guillain [place] Small AAA Liver mass/cyst History of Present Illness History of Present Illness Pt seen and examined while sitting upright in bed Pt was smiling and in NAD Discussed plan w/pt and at bedside Discussed w/RN Vitals Vitals Vital Signs Date Time Temp Pulse Resp B/P (MAP) Pulse Ox O2 Delivery O2 Flow Rate FiO2 03/04/18 11:00 96.0 68 18 131/66 (87) 96 Room Air 96.0 03/03/18 10:20 2.0 Physical Exam Physical Exam HEENT: PAM b/l Neck: Supple, No JVD General: Alert, Oriented X3, Cooperative, No acute distress Heart: Regular rate, Normal S1, Normal S2 Lungs: Clear Abdomen: Soft, No tenderness Extremities: No cyanosis, No edema Skin: No rashes, No breakdown, No significant lesion Labs LABS Laboratory Tests Test 03/04/18 03:20 White Blood Count 10.3 x10^3/uL (4.0-11.0) Red Blood Count 4.50 x10^6/uL (4.30-5.70) Hemoglobin 13.6 g/dL (13.0-17.5) Hematocrit 38.5 % (39.0-53.0) Mean Corpuscular Volume 86 fL (79-100) Mean Corpuscular Hemoglobin 30 pg (25-35) Mean Corpuscular Hemoglobin Concent 35 g/dL (31-37) Red Cell Distribution Width 14.8 % (11.5-14.5) Platelet Count 348 x10^3/uL (140-400) Neutrophils (%) (Auto) 64 % (31-73) Lymphocytes (%) (Auto) 22 % (24-48) Monocytes (%) (Auto) 11 % (0-9) Eosinophils (%) (Auto) 2 % (0-3) Basophils (%) (Auto) 1 % (0-3) Neutrophils # (Auto) 6.7 x10^3uL (1.8-7.7) Lymphocytes # (Auto) 2.3 x10^3/uL (1.0-4.8) Monocytes # (Auto) 1.1 x10^3/uL (0.0-1.1) Eosinophils # (Auto) 0.2 x10^3/uL (0.0-0.7) Basophils # (Auto) 0.1 x10^3/uL (0.0-0.2) Sodium Level 142 mmol/L (136-145) Potassium Level 3.7 mmol/L (3.5-5.1) Chloride Level 104 mmol/L (98-107) Carbon Dioxide Level 28 mmol/L (21-32) Anion Gap 10 (6-14) Blood Urea Nitrogen 14 mg/dL (8-26) Creatinine 1.0 mg/dL (0.7-1.3) Estimated GFR (Cockcroft-Gault) 75.5 BUN/Creatinine Ratio 14 (6-20) Glucose Level 119 mg/dL (70-99) Calcium Level 9.1 mg/dL (8.5-10.1) Total Bilirubin 0.3 mg/dL (0.2-1.0) Aspartate Amino Transf (AST/SGOT) 31 U/L (15-37) Alanine Aminotransferase (ALT/SGPT) 46 U/L (16-63) Alkaline Phosphatase 99 U/L (46-116) Total Protein 7.1 g/dL (6.4-8.2) Albumin 3.4 g/dL (3.4-5.0) Albumin/Globulin Ratio 0.9 (1.0-1.7) Review of Systems Review of Systems Pt was sitting upright in bed, smiling, talkative and in NAD Denies chest pain, SOB and had no complaints Assessment and Plan Assessmemt and Plan Problems Medical Problems: (1) NSTEMI (non-ST elevated myocardial infarction) Status: Acute Assessment: NSTEMI Accelerated HTN CAD - PCI/stents in 2010 Noncompliance - has not taken his meds HLP Tobaccoism Hx of Guillain [place] Small AAA Liver mass/cyst Plan: Probable d/c home today ASA Stent to LAD PRN IV labetolol TTE today Abd US today CT abdomen today to investigate liver mass Home meds Labs Comment Review of Relevant I have reviewed the following items lilian (where applicable) has been applied. Labs Laboratory Tests Test 03/02/18 18:15 03/03/18 00:25 03/03/18 01:55 03/03/18 06:00 Heparin Anti-Xa Act, Unfractionated 0.18 IU/mL (0.30-0.70) 0.25 IU/mL (0.30-0.70) Troponin I Quantitative 6.107 ng/mL (0.000-0.055) 9.106 ng/mL (0.000-0.055) 6.227 ng/mL (0.000-0.055) White Blood Count 11.4 x10^3/uL (4.0-11.0) Red Blood Count 4.22 x10^6/uL (4.30-5.70) Hemoglobin 12.7 g/dL (13.0-17.5) Hematocrit 36.3 % (39.0-53.0) Mean Corpuscular Volume 86 fL (79-100) Mean Corpuscular Hemoglobin 30 pg (25-35) Mean Corpuscular Hemoglobin Concent 35 g/dL (31-37) Red Cell Distribution Width 14.8 % (11.5-14.5) Platelet Count 330 x10^3/uL (140-400) Triglycerides Level 371 mg/dL (0-150) Cholesterol Level 167 mg/dL (0-200) LDL Cholesterol, Calculated 73 mg/dL (0-100) VLDL Cholesterol, Calculated 74 mg/dL (0-40) Non-HDL Cholesterol Calculated 147 mg/dL (0-129) HDL Cholesterol 20 mg/dL (40-60) Cholesterol/HDL Ratio 8.4 Test 03/04/18 03:20 White Blood Count 10.3 x10^3/uL (4.0-11.0) Red Blood Count 4.50 x10^6/uL (4.30-5.70) Hemoglobin 13.6 g/dL (13.0-17.5) Hematocrit 38.5 % (39.0-53.0) Mean Corpuscular Volume 86 fL (79-100) Mean Corpuscular Hemoglobin 30 pg (25-35) Mean Corpuscular Hemoglobin Concent 35 g/dL (31-37) Red Cell Distribution Width 14.8 % (11.5-14.5) Platelet Count 348 x10^3/uL (140-400) Neutrophils (%) (Auto) 64 % (31-73) Lymphocytes (%) (Auto) 22 % (24-48) Monocytes (%) (Auto) 11 % (0-9) Eosinophils (%) (Auto) 2 % (0-3) Basophils (%) (Auto) 1 % (0-3) Neutrophils # (Auto) 6.7 x10^3uL (1.8-7.7) Lymphocytes # (Auto) 2.3 x10^3/uL (1.0-4.8) Monocytes # (Auto) 1.1 x10^3/uL (0.0-1.1) Eosinophils # (Auto) 0.2 x10^3/uL (0.0-0.7) Basophils # (Auto) 0.1 x10^3/uL (0.0-0.2) Sodium Level 142 mmol/L (136-145) Potassium Level 3.7 mmol/L (3.5-5.1) Chloride Level 104 mmol/L (98-107) Carbon Dioxide Level 28 mmol/L (21-32) Anion Gap 10 (6-14) Blood Urea Nitrogen 14 mg/dL (8-26) Creatinine 1.0 mg/dL (0.7-1.3) Estimated GFR (Cockcroft-Gault) 75.5 BUN/Creatinine Ratio 14 (6-20) Glucose Level 119 mg/dL (70-99) Calcium Level 9.1 mg/dL (8.5-10.1) Total Bilirubin 0.3 mg/dL (0.2-1.0) Aspartate Amino Transf (AST/SGOT) 31 U/L (15-37) Alanine Aminotransferase (ALT/SGPT) 46 U/L (16-63) Alkaline Phosphatase 99 U/L (46-116) Total Protein 7.1 g/dL (6.4-8.2) Albumin 3.4 g/dL (3.4-5.0) Albumin/Globulin Ratio 0.9 (1.0-1.7) Laboratory Tests Test 03/04/18 03:20 White Blood Count 10.3 x10^3/uL (4.0-11.0) Red Blood Count 4.50 x10^6/uL (4.30-5.70) Hemoglobin 13.6 g/dL (13.0-17.5) Hematocrit 38.5 % (39.0-53.0) Mean Corpuscular Volume 86 fL (79-100) Mean Corpuscular Hemoglobin 30 pg (25-35) Mean Corpuscular Hemoglobin Concent 35 g/dL (31-37) Red Cell Distribution Width 14.8 % (11.5-14.5) Platelet Count 348 x10^3/uL (140-400) Neutrophils (%) (Auto) 64 % (31-73) Lymphocytes (%) (Auto) 22 % (24-48) Monocytes (%) (Auto) 11 % (0-9) Eosinophils (%) (Auto) 2 % (0-3) Basophils (%) (Auto) 1 % (0-3) Neutrophils # (Auto) 6.7 x10^3uL (1.8-7.7) Lymphocytes # (Auto) 2.3 x10^3/uL (1.0-4.8) Monocytes # (Auto) 1.1 x10^3/uL (0.0-1.1) Eosinophils # (Auto) 0.2 x10^3/uL (0.0-0.7) Basophils # (Auto) 0.1 x10^3/uL (0.0-0.2) Sodium Level 142 mmol/L (136-145) Potassium Level 3.7 mmol/L (3.5-5.1) Chloride Level 104 mmol/L (98-107) Carbon Dioxide Level 28 mmol/L (21-32) Anion Gap 10 (6-14) Blood Urea Nitrogen 14 mg/dL (8-26) Creatinine 1.0 mg/dL (0.7-1.3) Estimated GFR (Cockcroft-Gault) 75.5 BUN/Creatinine Ratio 14 (6-20) Glucose Level 119 mg/dL (70-99) Calcium Level 9.1 mg/dL (8.5-10.1) Total Bilirubin 0.3 mg/dL (0.2-1.0) Aspartate Amino Transf (AST/SGOT) 31 U/L (15-37) Alanine Aminotransferase (ALT/SGPT) 46 U/L (16-63) Alkaline Phosphatase 99 U/L (46-116) Total Protein 7.1 g/dL (6.4-8.2) Albumin 3.4 g/dL (3.4-5.0) Albumin/Globulin Ratio 0.9 (1.0-1.7) Medications Current Medications Sodium Chloride 1,000 ml @ 1,000 mls/hr 1X ONCE IV Last administered on 03/02at 12:07; Start 03/02/18 at 11:15; Stop 03/02/18 at 12:14; Status DC Heparin Sodium (Porcine) (Heparin Sodium) 4,000 unit 1X ONCE IV Last administered on 03/02/18at 12:32; Start 03/02/18 at 12:15; Stop 03/02/18 at 12 :16; Status DC Heparin Sodium/ Dextrose 500 ml @ 0 mls/hr CONT PRN IV SEE I/O RECORD Last administered on 03/02/18at 12:33; Start 03/02/18 at 12:15; Stop 03/04/18 at 13: 06; Status DC Ondansetron HCl (Zofran) 4 mg PRN Q8HRS PRN IV NAUSEA/VOMITING; Start at 12:15; Stop 03/03/18 at 12:14; Status DC Morphine Sulfate (Morphine Sulfate) 4 mg PRN Q2HR PRN IV PAIN Last administered on 03/02/18at 12:29; Start 03/02/18 at 12:15; Stop 03/03/18 at 12 :14; Status DC Sodium Chloride 1,000 ml @ 75 mls/hr [id number] IV Last administered on at 20:37; Start 03/02/18 at 12:08; Stop 03/03/18 at 12:07; Status DC Nitroglycerin (Nitrostat) 0.4 mg PRN Q5MIN PRN SL CHEST PAIN; Start 03/02/18 at 12:15; Stop 03/03/18 at 12:14; Status DC Nitroglycerin (Nitro-Bid Oint) 1 inch Q6HRS TP Last administered on 03/03/18at 05:46; Start 03/02/18 at 16:00 Labetalol HCl (Normodyne Iv Push) 20 mg PRN Q2HR PRN IVP HYPERTENSION, SEE COMMENTS; Start 03/02/18 at 15:45 Aspirin (Ecotrin) 81 mg DAILYWBKFT PO Last administered on 03/03/18at 07:58; Start 03/02/18 at 16:00; Stop 03/03/18 at 09:55; Status DC Heparin Sodium (Porcine) (Heparin Sodium) 2,150 unit PRN Q6HRS PRN IV FOR UFH LEVEL LESS THAN 0.2 Last administered on 03/02/18at 20:41; Start 03/02/18 at 20 :30; Stop 03/04/18 at 13:06; Status DC Iohexol (Omnipaque 300 Mg/ml) 100 ml STK-MED ONCE .ROUTE ; Start 03/03/18 at 07 :11; Stop 03/03/18 at 07:12; Status DC Lidocaine HCl (Xylocaine 1% Pf 30ml Vial) 30 ml STK-MED ONCE .ROUTE ; Start at 07:11; Stop 03/03/18 at 07:12; Status DC Heparin Sodium/ Sodium Chloride 1,000 ml @ As Directed STK-MED ONCE .ROUTE ; Start 03/03/18 at 07:11; Stop 03/03/18 at 07:12; Status DC Lidocaine HCl (Xylocaine 1% Pf 30ml Vial) 30 ml STK-MED ONCE .ROUTE ; Start at 07:11; Stop 03/03/18 at 07:12; Status DC Fentanyl Citrate (Fentanyl 2ml Vial) 100 mcg STK-MED ONCE .ROUTE ; Start at 08:06; Stop 03/03/18 at 08:07; Status DC Midazolam HCl (Versed) 2 mg STK-MED ONCE .ROUTE ; Start 03/03/18 at 08:06; Stop 03/03/18 at 08:07; Status DC Midazolam HCl (Versed) 2 mg STK-MED ONCE .ROUTE ; Start 03/03/18 at 08:39; Stop 03/03/18 at 08:40; Status DC Bivalirudin (Angiomax) 250 mg STK-MED ONCE IV ; Start 03/03/18 at 08:50; Stop 03/03/18 at 08:51; Status DC Iohexol (Omnipaque 300 Mg/ml) 100 ml STK-MED ONCE .ROUTE ; Start 03/03/18 at 08 :50; Stop 03/03/18 at 08:51; Status DC Heparin Sodium/ Sodium Chloride 500 ml @ As Directed STK-MED ONCE .ROUTE ; Start 03/03/18 at 09:01; Stop 03/03/18 at 09:02; Status DC Atropine Sulfate (ATROPINE 1mg SYRINGE) 1 mg STK-MED ONCE .ROUTE ; Start at 09:12; Stop 03/03/18 at 09:13; Status DC Midazolam HCl (Versed) 2 mg STK-MED ONCE .ROUTE ; Start 03/03/18 at 09:14; Stop 03/03/18 at 09:15; Status DC Clopidogrel Bisulfate (Plavix) 75 mg STK-MED ONCE .ROUTE ; Start 03/03/18 at 09 :19; Stop 03/03/18 at 09:20; Status DC Heparin Sodium/ Sodium Chloride (HEPARIN for ARTERIAL LINE FLUSH) 1,000 unit 1X ONCE IART Last administered on 03/03/18at 09:38; Start 03/03/18 at 09:30; Stop 03/03/18 at 09:31; Status DC Midazolam HCl (Versed) 5 mg 1X ONCE IV Last administered on 03/03/18at 09:37; Start 03/03/18 at 09:01; Stop 03/03/18 at 09:29; Status DC Fentanyl Citrate (Fentanyl 2ml Vial) 62.75 mcg 1X ONCE IV Last administered on 03/03/18at 09:37; Start 03/03/18 at 09:30; Stop 03/03/18 at 09:31; Status DC Iohexol (Omnipaque 300 Mg/ml) 191 ml 1X ONCE IART Last administered on at 09:35; Start 03/03/18 at 09:30; Stop 03/03/18 at 09:31; Status DC Bivalirudin (Angiomax) 250 mg 1X ONCE IV Last administered on 03/03/18at 09:35 ; Start 03/03/18 at 09:30; Stop 03/03/18 at 09:31; Status DC Clopidogrel Bisulfate (Plavix) 600 mg 1X ONCE PO Last administered on at 09:36; Start 03/03/18 at 09:30; Stop 03/03/18 at 09:31; Status DC Lidocaine HCl (Xylocaine 1% Pf 30ml Vial) 20 ml 1X ONCE INJ Last administered on 03/03/18at 09:35; Start 03/03/18 at 09:30; Stop 03/03/18 at 09:31; Status DC Info (CONTRAST GIVEN -- Rx MONITORING) 1 each PRN DAILY PRN MC SEE COMMENTS; Start 03/03/18 at 09:45; Stop 03/05/18 at 09:44 Sodium Chloride (Normal Saline Flush) 3 ml QSHIFT PRN IV AFTER MEDS AND BLOOD DRAWS; Start 03/03/18 at 10:00 Sodium Chloride 1,000 ml @ 75 mls/hr [id number] IV ; Start 03/03/18 at 10:30; Stop 03/03/18 at 10:31; Status DC Aspirin (Ecotrin) 325 mg DAILYWBKFT PO Last administered on 03/04/18at 08:46; Start 03/04/18 at 08:00 Clopidogrel Bisulfate (Plavix) 75 mg DAILYWBKFT PO Last administered on at 08:46; Start 03/04/18 at 08:00 Metoprolol Succinate (Toprol Xl) 25 mg DAILY PO Last administered on 03/04/18at 08:45; Start 03/03/18 at 11:00 Lisinopril (Prinivil) 10 mg DAILY PO Last administered on 03/04/18at 08:46; Start 03/03/18 at 11:00 Atorvastatin Calcium (Lipitor) 20 mg QHS PO Last administered on 03/03/18at 22: 36; Start 03/03/18 at 21:00; Stop 03/04/18 at 11:20; Status DC Acetaminophen (Tylenol) 650 mg PRN Q6HRS PRN PO MILD PAIN / TEMP; Start at 10:00 Fentanyl Citrate (Fentanyl 2ml Vial) 50 mcg PRN Q1HR PRN IV MODERATE OR SEVERE PAIN; Start 03/03/18 at 10:00 Nitroglycerin (Nitrostat) 0.4 mg PRN Q5MIN PRN SL CHEST PAIN; Start 03/03/18 at 10:00 Amiodarone HCl 150 mg/Dextrose 103 ml @ 600 mls/hr 1X PRN PRN IV FOR VENTRICULAR TACHYCARDIA; Start 03/03/18 at 10:00 Lidocaine HCl (Lidocaine HCl 2% Abboject) 100 mg 1X PRN PRN IV FOR VENTRICULAR TACHYCARDIA; Start 03/03/18 at 10:00 Atropine Sulfate (ATROPINE 0.5mg SYRINGE) 0.5 mg PRN 1X PRN IV BRADYCARDIA; Start 03/03/18 at 10:00 Iohexol (Omnipaque 300 Mg/ml) 75 ml 1X ONCE IV Last administered on 03/04/18at 09:00; Start 03/04/18 at 09:00; Stop 03/04/18 at 09:01; Status DC Iohexol (Omnipaque 300 Mg/ml) 100 ml STK-MED ONCE .ROUTE ; Start 03/04/18 at 08: 55; Stop 03/04/18 at 08:56; Status DC Atorvastatin Calcium (Lipitor) 40 mg QHS PO ; Start 03/04/18 at 21:00 Active Scripts Active Reported Aspirin 325 Mg Tablet 325 Mg PO DAILY Lipitor (Atorvastatin Calcium) 20 Mg Tablet 20 Mg PO HS Metoprolol Succinate ( Xl ) (Metoprolol Succinate) 25 Mg Tab.er.24h 25 Mg PO DAILY Lisinopril 10 Mg Tablet 10 Mg PO DAILY Clopidogrel (Clopidogrel Bisulfate) 75 Mg Tablet 75 Mg PO DAILY Vitals/I & O Vital Sign - Last 24 Hours 03/03/18 03/03/18 03/03/18 03/03/18 13:40 14:13 14:13 15:00 Temp 98.5 98.5 Pulse 65 65 65 70 Resp 16 B/P (MAP) 148/80 (102) 148/80 148/80 140/79 (99) Pulse Ox 95 O2 Delivery Room Air 03/03/18 03/03/18 03/03/18 03/04/18 19:43 20:00 23:00 03:30 Temp 98.4 98.7 97.7 98.4 98.7 97.7 Pulse 82 65 67 Resp 18 20 20 B/P (MAP) 143/92 (109) 137/78 (97) 123/77 (92) Pulse Ox 96 96 97 O2 Delivery Room Air Room Air Room Air Room Air 03/04/18 03/04/18 03/04/18 03/04/18 07:00 07:45 08:45 08:46 Temp 97.8 97.8 Pulse 67 70 70 Resp 18 B/P (MAP) 118/66 (83) Pulse Ox 97 O2 Delivery Room Air Room Air 03/04/18 11:00 Temp 96.0 96.0 Pulse 68 Resp 18 B/P (MAP) 131/66 (87) Pulse Ox 96 O2 Delivery Room Air Intake and Output 10/31/18 10/31/18 11/1/18 15:00 23:00 07:00 Intake Total 0 ml Output Total 1000 ml 200 ml Balance -1000 ml -200 ml UMM LICONA III DO Mar 04, 2018 13:26
[2018-03-04] MEDS ORDERED: ATORVASTATIN CALCIUM 40 MG TABLET. PO SCH (21:00)
== END 2018-03-04 14:15 | disposition home or self-care (01) | DRG 249 ==
LOC: ER 10:56 → CVICU 12:10 → 2 NORTH 03-03 15:35
PROVIDERS: ADMIT Family Medicine; ATTEND Family Medicine
PROC: 02703DZ Dilation of Coronary Artery, One Artery with Intraluminal Device, Percutaneous Approach (ICD-10-PCS; principal; 2018-03-03)
PROC: 4A023N7 Measurement of Cardiac Sampling and Pressure, Left Heart, Percutaneous Approach (ICD-10-PCS; 2018-03-03)
PROC: B2151ZZ Fluoroscopy of Left Heart using Low Osmolar Contrast (ICD-10-PCS; 2018-03-03)
PROC: B2111ZZ Fluoroscopy of Multiple Coronary Arteries using Low Osmolar Contrast (ICD-10-PCS; 2018-03-03)
PROC: B4101ZZ Fluoroscopy of Abdominal Aorta using Low Osmolar Contrast (ICD-10-PCS; 2018-03-03)
DX: I21.4 Non-ST elevation (NSTEMI) myocardial infarction (principal); E78.5 Hyperlipidemia, unspecified; I10 Essential (primary) hypertension; M19.90 Unspecified osteoarthritis, unspecified site; I25.10 Atherosclerotic heart disease of native coronary artery without angina pectoris; J44.9 Chronic obstructive pulmonary disease, unspecified; F17.210 Nicotine dependence, cigarettes, uncomplicated; K76.89 Other specified diseases of liver; I71.4 Abdominal aortic aneurysm, without rupture; Z91.19 Patient's noncompliance with other medical treatment and regimen; Z71.6 Tobacco abuse counseling; Z79.899 Other long term (current) drug therapy; Z95.5 Presence of coronary angioplasty implant and graft; D18.03 Hemangioma of intra-abdominal structures
CPT/HCPCS: 36415; 71045; 74178; 76770; 80048; 80053; 80061; 83880; 84484; 85025; 85027; 85379; 85520; 85610; 85730; 92928; 93005; 93306; 93458; 93567; 96361; 96374; 96375; 99152; 99153; 99406; C1725; C1769; C1771; C1876; C1887; C1892; G0269; J0583; J1644; J2250; J2270; J3010; J7030; Q9967; 99285-25

== ENCOUNTER 2020-03-18 04:57 | Inpatient (IN) | payer BC, MEDICARE ==
[~2020-03-18] VITALS: Ht 177.8 cm; Wt 88.4 kg
[~2020-03-18 04:57] MED LIST: ASPI325T8 PO; ATOR20TA PO; ATOR20TA58 PO; CLOP75TA PO; LISI10TA2 PO; METO-239 PO
[2020-03-18] MEDS ORDERED: HYDROmorphone 2 MG/ML VIAL IVP ONE (05:30)
[2020-03-18] MEDS ORDERED: NITROGLYCERIN PREMIX 250 ML IV ONE ×2 (05:30→05:32)
[2020-03-18] MEDS ORDERED: HEPARIN for IV BOLUS 10,000 UNIT/10 ML VIAL. IV ONE (05:30)
[2020-03-18] MEDS ORDERED: IV NORMAL SALINE 1000ML BAG 1,000 ML IV ONE (05:30)
[2020-03-18] MEDS ORDERED: HEPARIN 25,000UTS/250ML PREMIX 250 ML IV ONE (05:30)
--- NOTE | 2020-03-18 05:30 | PHYS DOC ---
Past Medical History Past Medical History: IA, Other Additional Past Medical Histor: GUILLAN-BARRE Past Surgical History: Cholecystectomy, Other Additional Past Surgical Histo: STENTS Smoking Status: Current Every Day Smoker Alcohol Use: Occasionally Drug Use: None General Adult EDM: Chief Complaint: CHEST PAIN HPI: HPI: History obtained from patient. Patient is a 64-year-old male who presents via EMS for sudden onset chest pain that awoke him from sleep roughly 45 minutes prior to arrival. He states the pain is a chest like pressure sensation radiating to his left neck. Does note some associated shortness of breath. Does note associated diaphoresis and nausea. Denies vomiting. Denies feelings of rapid or irregular heartbeat. Notes this feels similar to his previous IA 2 years ago. He states he did have a stent placed. He states he is not taken his medication in over a year because he is stubborn. Denies any alcohol or drug abuse. Denies syncope. Denies any back pain. Denies numbness to the extremities. Denies any weakness in extremities. Unsure what medicine he is supposed to be taking. Denies cough or fever. Denies known exposure to Covid. No other complaints. Review of Systems: Review of Systems: Constitutional: Denies fever or chills. [] Eyes: Denies change in visual acuity. [] HENT: Denies nasal congestion or sore throat. [] Respiratory: Positive for shortness of breath Cardiovascular: Positive for chest pain GI: Positive for nausea : Denies dysuria. [] Musculoskeletal: Denies back pain or joint pain. [] Integument: Denies rash. [] Neurologic: Denies headache, focal weakness or sensory changes. [] Endocrine: Denies polyuria or polydipsia. [] Lymphatic: Denies swollen glands. [] Psychiatric: Denies depression or anxiety. [] Heart Score: HEART Score for Chest Pain: HEART Score for Chest Pain Response (Comments) Value History Highly Suspicious [address] Depression 2 Age > 65 2 Risk Factors >3 Risk Factors or Hx CAD 2 Troponin < Normal Limit 0 Total 8 Risk Factors: Risk Factors: DM, Current or recent (<one month) smoker, HTN, HLP, family history of CAD, obesity. Risk Scores: Score 0 - 3: 2.5% MACE over next 6 weeks - Discharge Home Score 4 - 6: 20.3% MACE over next 6 weeks - Admit for Clinical Observation Score 7 - 10: 72.7% MACE over next 6 weeks - Early Invasive Strategies Current Medications: Current Medications Medications (Trade) Dose Ordered Sig/Brian Start Time Stop Time Status Last Admin Dose Admin Heparin Sodium (Porcine) (Heparin Sodium) 4,000 unit 1X ONCE 03/18/20 05:30 03/18/20 05:31 UNV Heparin Sodium/ Dextrose 250 ml @ 0 mls/hr 1X ONCE 03/18/20 05:30 03/18/20 05:31 UNV Hydromorphone HCl (Dilaudid) 1 mg 1X ONCE 03/18/20 05:30 03/18/20 05:31 UNV Ticagrelor (Brilinta) 180 mg 1X ONCE 03/18/20 05:30 03/18/20 05:31 UNV Allergies: Allergies: Allergies Coded Allergies Type Severity Reaction Last Updated Verified No Known Drug Allergies 03/02/18 No Physical Exam: PE: Constitutional: Well developed, well nourished, no acute distress, non-toxic appearance. [] HENT: Normocephalic, atraumatic, bilateral external ears normal, oropharynx moist, no oral exudates, nose normal. [] Eyes: PERRLA, EOMI, conjunctiva normal, no discharge. [] Neck: Normal range of motion, no tenderness, supple, no stridor. [] Cardiovascular:Heart rate regular rhythm, no murmur [] Lungs & Thorax: Bilateral breath sounds clear to auscultation [] Abdomen: Bowel sounds normal, soft, no tenderness, no masses, no pulsatile masses. [] Skin: Warm, dry, no erythema, no rash. [] Back: No tenderness, no CVA tenderness. [] Extremities: No tenderness, no cyanosis, no clubbing, ROM intact, no edema. [] Neurologic: Alert and oriented X 3, normal motor function, normal sensory function, no focal deficits noted. [] Psychologic: Affect normal, judgement normal, mood normal. [] Current Patient Data: Labs: Laboratory Tests Test 03/18/20 05:13 POC Troponin I 0.02 ng/ml (<0.08) EKG: EKG: [] Initial EKG consistent with normal sinus rhythm. Ventricular to 76 bpm. Left axis noted. ST depressions noted in leads V2 through V5. No acute ST segment elevation appreciated. No obvious elevation in aVR. ST depression does appear new from previous EKG in February 2018 EKG#2 POSTERIOR: Posterior EKG consistent with normal sinus rhythm. Ventricular rate of 83 bpm. Left axis noted. ST depressions persistent in the anterior precordial leads. No obvious ST elevation appreciated. Radiology/Procedures: Radiology/Procedures: [facility] [address] [place] [address] IMAGING REPORT Signed PATIENT: HEAVENLY SINGH ACCOUNT: [id number] : 1955 LOCATION: ER AGE: 64 SEX: M EXAM STATUS: REG ER ORD. PHYSICIAN: VERN SHI DO REASON: cp PROCEDURE: CHEST AP ONLY CHEST AP ONLY Clinical History: Reason: cp / Spl. Instructions: / History: Technique: AP view of the chest was obtained at 03/18/2020 5:09 AM. Comparison: March 02, 2018. Findings: The cardiomediastinal silhouette is normal. The pulmonary vasculature is normal. The lungs and pleural margins are clear. Impression: No evidence of an acute cardiopulmonary process. Electronically signed by: Ronnie Arroyo III, MD (03/18/2020 5:41 AM) [facility] DICTATED and SIGNED BY: RONNIE ARROYO III, MD DATE: 03/18/20 0541 [] Course & Med Decision Making: Course & Med Decision Making Pertinent Labs and Imaging studies reviewed. (See chart for details) [] Patient is a 64-year-old male who presents with chief complaint of sudden onset chest pressure that awoke him from sleep proximate 45 minutes prior to arrival. Initial EKG transmitted by EMS and obtained in the emergency department did show concerning ST depression in the anterior precordial leads. I was initially concern for posterior involvement. I did speak with medical care administrator Dr. Jason immediately. He stated this does not meet STEMI criteria. Furthermore, he states based on the patient's previous cardiac catheterization posterior STEMI is unlikely. I did specifically ask if we should obtain CT angiogram of the chest to evaluate for aortic dissection or coronary artery dissection. Cardiology recommended deferring this. They felt this was unlikely and anticipate patient going for angiogram in the near future. Given the patient has a bare-metal stent and has not taken medications over the past year it is possible he is experiencing unstable angina. Per cardiology recommendations patient will be given 180 mg of oral Brilinta. Heparin bolus and infusion will be initiated. Patient's pain will be controlled aggressively. I did initiate nitroglycerin infusion given the patient systolic blood pressure was approximate 190 and he did continue to have chest pain. Showed no signs of instability or EKG arrhythmia on telemetry strip. Initial troponin negative. Patient did receive full dose aspirin prior to arrival by EMS. He will require hospitalization for close monitoring and cardiac evaluation. Dragon Disclaimer: Dragon Disclaimer: This electronic medical record was generated, in whole or in part, using a voice recognition dictation system. Departure Departure Impression: Primary Impression: Unstable angina Additional Impression: CAD (coronary artery disease) Qualified Codes: I25.110 - Atherosclerotic heart disease of [place] coronary artery with unstable angina pectoris Disposition: ADMITTED INPT THIS HOSP Condition: STABLE Referrals: NO PCP (PCP) VERN SHI DO Mar 18, 2020 05:30
[2020-03-18 05:31] LABS: BASO # 0.1 x10^3/uL (0.0-0.2); BASO % 1 % (0-3); EOS # 0.3 x10^3/uL (0.0-0.7); EOS % 3 % (0-3); HEMATOCRIT 41.4 % (39.0-53.0); LYMPH # 3.9 x10^3/uL (1.0-4.8); LYMPH % 38 % (24-48); MEAN CORPUSCULAR HEMOGLOBIN 29 pg (25-35); MEAN CORPUSCULAR HGB CONC 34 g/dL (31-37); MEAN CORPUSCULAR VOLUME 85 fL (79-100); MONO % 10 % (0-9); NEUT % 48 % (31-73); PLATELET COUNT 373 x10^3/uL (140-400); RED BLOOD COUNT 4.86 x10^6/uL (4.30-5.70); WHITE BLOOD COUNT 10.3 x10^3/uL (4.0-11.0)
[2020-03-18] MEDS ORDERED: ONDANSETRON PF 4 MG/2 ML VIAL. ONE (05:36)
--- NOTE | 2020-03-18 05:44 | RAD ---
CHEST AP ONLY Clinical History: Reason: cp / Spl. Instructions: / History: Technique: AP view of the chest was obtained at 03/18/2020 5:09 AM. Comparison: March 02, 2018. Findings: The cardiomediastinal silhouette is normal. The pulmonary vasculature is normal. The lungs and pleural margins are clear. Impression: No evidence of an acute cardiopulmonary process. Electronically signed by: Ramana Howe III, MD (03/18/2020 5:41 AM) [facility]
[2020-03-18] MEDS ORDERED: TICAGRELOR 90 MG TABLET. PO ONE (05:45)
[2020-03-18] MEDS ORDERED: MORPHINE SULFATE 4 MG/ML VIAL. IV PRN (05:45)
[2020-03-18] MEDS: ONDANSETRON PF 4 MG/2 ML VIAL. IV PRN ×2 (05:57→17:30)
[2020-03-18 05:58] LABS: CALCIUM 8.8 mg/dL (8.5-10.1); CREATININE 1.3 mg/dL (0.7-1.3); GFR 55.4
[2020-03-18] MEDS ORDERED: fentaNYL PF VIAL 100 MCG/2 ML VIAL ONE ×2 (06:00→10:55)
[2020-03-18] MEDS ORDERED: fentaNYL PF VIAL 100 MCG/2 ML VIAL IVP ONE (06:30)
--- NOTE | 2020-03-18 07:27 | PDOC1 ---
History and Physical Date of Admission Date of Admission DATE: 03/18/20 TIME: 07:23 Identification/Chief Complaint Chief Complaint Chest pain Source Source: Patient History of Present Illness History of Present Illness Mr Herrera is a 64-year-old male w/ PMHx CAD s/p stents, guillan-barre, smoker who presents via EMS for sudden onset chest pain that awoke him from sleep roughly 45 minutes prior to arrival around 0500 He states the pain is a chest like pressure sensation radiating to his left neck. Does note some associated shortness of breath. Does note associated diaphoresis and nausea. Denies vomiting. He also notes right sided pain and swelling of his right jaw and right neck as well as right arm numbness. Denies feelings of rapid or irregular heartbeat. Notes this feels similar to his previous AL 2 years ago with BMS to his LAD after a 95% occlusion was discovered. He states he is not taken his medication in over a year because he is stubborn, he calls himself an idiot for this. He does not even know his medications. Denies any alcohol or drug abuse. Denies syncope. Denies any back pain. Denies numbness to the extremities. Denies any weakness in extremities. Denies cough or fever. Denies known exposure to Covid. No other complaints. EKG #1 NSR. Ventricular to [address] depressions in leads V2 through V5. V3 and V4 > 10mm depressions. No acute ST segment elevation appreciated. No obvious elevation in aVR. ST depression does appear new from previous EKG in February 2018 Posterior EKG sinus rhythm. Ventricular rate of 83 bpm. Left axis noted. ST depressions persistent in the anterior precordial leads. No obvious ST elevation appreciated. Chest radiograph negative for acute abnormality Labs significant for WBC 10.3, Hb 14, platelets 373, NA 140, K4, BUN 23, CR 1.3, glucose 169, BNP 18 initial troponin 0.117 Per cardiology recommendations patient given 180 mg of oral Brilinta. Heparin bolus and infusion initiated. Patient did receive full dose aspirin prior to arrival by EMS. Nitroglycerin initiated in ED via GTT. Admitted for close monitoring and cardiac evaluation. Past Medical History Cardiovascular: CAD Pulmonary: COPD CENTRAL NERVOUS SYSTEM: Other GI: No pertinent hx Heme/Onc: No pertinent hx Hepatobiliary: No pertinent hx Psych: No pertinent hx Musculoskeletal: Osteoarthritis Rheumatologic: No pertinent hx Past Surgical History Past Surgical History: Other Family History Family History: Heart Disease Social History Smoke: 1 pack per day ALCOHOL: occassional Drugs: None Current Problem List Problem List Problems Medical Problems: (1) CAD (coronary artery disease) Status: Acute (2) Unstable angina Status: Acute Current Medications Current Medications Current Medications Heparin Sodium (Porcine) (Heparin Sodium) 4,000 unit 1X ONCE IV Last administered on 03/18/20at 05:48; Start 03/18/20 at 05:30; Stop 03/18/20 at 05:33; Status DC Heparin Sodium/ Dextrose 250 ml @ 0 mls/hr 1X ONCE IV Last administered on 03/18/20at 06:19; Start 03/18/20 at 05:30; Stop 03/18/20 at 05:33; Status DC Ticagrelor (Brilinta) 180 mg 1X ONCE PO Last administered on 03/18/20at 05:52; Start 03/18/20 at 05:45; Stop 03/18/20 at 05:46; Status DC Hydromorphone HCl (Dilaudid) 1 mg 1X ONCE IVP Last administered on 03/18/20at 05:43; Start 03/18/20 at 05:30; Stop 03/18/20 at 05:32; Status DC Sodium Chloride 1,000 ml @ 1,000 mls/hr 1X ONCE IV Last administered on 03/18/20at 05:52; Start 03/18/20 at 05:30; Stop 03/18/20 at 06:29; Status DC Nitroglycerin/ Dextrose 250 ml @ 0 mls/hr 1X ONCE IV Last administered on 03/18/20at 05:47; Start 03/18/20 at 05:30; Stop 03/18/20 at 05:32; Status DC Nitroglycerin/ Dextrose 250 ml @ As Directed STK-MED ONCE IV ; Start 03/18/20 at 05:32; Stop 03/18/20 at 05:32; Status DC Ondansetron HCl (Zofran) 4 mg STK-MED ONCE .ROUTE ; Start 03/18/20 at 05:36; Stop 03/18/20 at 05:37; Status DC Ondansetron HCl (Zofran) 4 mg PRN Q8HRS PRN IV NAUSEA/VOMITING Last administered on 03/18/20at 05:57; Start 03/18/20 at 05:45; Stop 03/19/20 at 05:44 Morphine Sulfate (Morphine Sulfate) 4 mg PRN Q2HR PRN IV PAIN; Start 03/18/20 at 05:45; Stop 03/19/20 at 05:44 Fentanyl Citrate (Fentanyl 2ml Vial) 100 mcg STK-MED ONCE .ROUTE ; Start 03/04 09/20 at 06:00; Stop 03/18/20 at 06:00; Status DC Fentanyl Citrate (Fentanyl 2ml Vial) 50 mcg 1X ONCE IVP Last administered on 03/18/20at 05:00; Start 03/18/20 at 06:30; Stop 03/18/20 at 06:36; Status DC Active Scripts Active Reported Aspirin 325 Mg Tablet 325 Mg PO DAILY Lipitor (Atorvastatin Calcium) 20 Mg Tablet 40 Mg PO HS Metoprolol Succinate ( Xl ) (Metoprolol Succinate) 25 Mg Tab.er.24h 25 Mg PO DAILY Lisinopril 10 Mg Tablet 10 Mg PO DAILY Clopidogrel (Clopidogrel Bisulfate) 75 Mg Tablet 75 Mg PO DAILY Allergies Allergies: Coded Allergies: No Known Drug Allergies (Unverified , 03/02/18) ROS General: YES: Fatigue, Malaise; No: Chills, Night Sweats, Appetite, Other PSYCHOLOGICAL ROS: No: Anxiety, Behavioral Disorder, Concentration difficultie, Decreased libido, Depression, Disorientation, Hallucinations, Hostility, Irritablity, Memory difficulties, Mood Swings, Obsessive thoughts, Physical abuse, Sexual abuse, Sleep disturbances, Suicidal ideation, Other Eyes: No Blurry vision, No Decreased vision, No Double vision, No Dry eyes, No Excessive tearing, No Eye Pain, No Itchy Eyes, No Loss of vision, No Photophobia, No Scotomata, No Uses contacts, No Uses glasses, No Other HEENT: No: Heacaches, Visual Changes, Hearing change, Nasal congestion, Nasal discharge, Oral lesions, Sinus pain, Sore Throat, Epistaxis, Sneezing, Snoring, Tinnitus, Vertigo, Vocal changes, Other ALLERGY AND IMMUNOLOGY: No: Hives, Insect Bite Sensitivity, Itchy/Watery Eyes, Nasal Congestion, Post Nasal Drip, Seasonal Allergies, Other Hematological and Lymphatic: No: Bleeding Problems, Blood Clots, Blood Transfusions, Brusing, Night Sweats, Pallor, Swollen Lymph Nodes, Other ENDOCRINE: No: Breast Changes, Galactorrhea, Hair Pattern Changes, Hot Flashes, Malaise/lethargy, Mood Swings, Palpitations, Polydipsia/polyuria, Skin Changes, Temperature Intolerance, Unexpected Weight Changes, Other Breast: No New/Changing Breast Lumps, No Nipple changes, No Nipple discharge, No Other Respiratory: No: Cough, Hemoptysis, Orthopnea, Pleuritic Pain, Shortness of breath, SOB with excertion, Sputum Changes, Stridor, Tachypnea, Wheezing, Other Cardiovascular: No Chest Pain, No Palpitations, No Orthopnea, No Paroxysmal Noc. Dyspnea, No Edema, No Lt Headedness, No Other Gastrointestinal: Yes Nausea; No Vomiting, No Abdominal Pain, No Diarrhea, No Constipation, No Melena, No Hematochezia, No Other Genitourinary: No Dysuria, No Frequency, No Incontinence, No Hematuria, No Retention, No Discharge, No Urgency, No Pain, No Flank Pain, No Other, No , No , No , No , No , No , No Musculoskeletal: No Gait Disturbance, No Joint Pain, No Joint Stiffness, No Joint Swelling, No Muscle Pain, No Muscular Weakness, No Pain In:, No Swelling In:, No Other Neurological: No Behavorial Changes, No Bowel/Bladder ControlChng, No Confusion, No Dizziness, No Gait Disturbance, No Headaches, No Impaired Coord/balance, No Memory Loss, No Numbness/Tingling, No Seizures, No Speech Problems, No Tremors, No Visual Changes, No Weakness, No Other Skin: No Dry Skin, No Eczema, No Hair Changes, No Lumps, No Mole Changes, No Mottling, No Nail Changes, No Pruritus, No Rash, No Skin Lesion Changes, No Other, No Acne Physical Exam General: Alert, Oriented X3, Cooperative, moderate distress HEENT: Atraumatic, PERRLA, EOMI, Mucous membr. moist/pink Lungs: Other (Scattered wheezes) Heart: S1S2, RRR, no thrills, no rubs, no gallops, no murmurs Abdomen: Normal bowel sounds, Soft, No tenderness, No hepatosplenomegaly, No masses Rectal Exam: not examined Extremities: No clubbing, No cyanosis, No edema, Normal pulses, No tenderness/swelling Skin: No rashes, No breakdown, No significant lesion Neuro: Normal gait, Normal speech, Strength at 5/5 X4 ext, Normal tone, Sensation intact, Cranial nerves 3-12 NL, Reflexes 2+ Psych/Mental Status: Mental status NL, Mood NL Vitals Vitals Vital Signs Date Time Temp Pulse Resp B/P (MAP) Pulse Ox O2 Delivery O2 Flow Rate FiO2 03/18/20 06:44 76 166/99 (121) 96 Room Air 03/18/20 05:43 22 03/18/20 04:57 97.1 97.1 Labs Labs Laboratory Tests Test 03/18/20 05:10 03/18/20 05:13 03/18/20 05:40 03/18/20 06:25 White Blood Count 10.3 x10^3/uL (4.0-11.0) Red Blood Count 4.86 x10^6/uL (4.30-5.70) Hemoglobin 14.0 g/dL (13.0-17.5) Hematocrit 41.4 % (39.0-53.0) Mean Corpuscular Volume 85 fL (79-100) Mean Corpuscular Hemoglobin 29 pg (25-35) Mean Corpuscular Hemoglobin Concent 34 g/dL (31-37) Red Cell Distribution Width 15.0 % (11.5-14.5) Platelet Count 373 x10^3/uL (140-400) Neutrophils (%) (Auto) 48 % (31-73) Lymphocytes (%) (Auto) 38 % (24-48) Monocytes (%) (Auto) 10 % (0-9) Eosinophils (%) (Auto) 3 % (0-3) Basophils (%) (Auto) 1 % (0-3) Neutrophils # (Auto) 5.0 x10^3/uL (1.8-7.7) Lymphocytes # (Auto) 3.9 x10^3/uL (1.0-4.8) Monocytes # (Auto) 1.0 x10^3/uL (0.0-1.1) Eosinophils # (Auto) 0.3 x10^3/uL (0.0-0.7) Basophils # (Auto) 0.1 x10^3/uL (0.0-0.2) Bedside Troponin I 0.02 ng/ml (<0.08) Sodium Level 140 mmol/L (136-145) Potassium Level 4.0 mmol/L (3.5-5.1) Chloride Level 107 mmol/L (98-107) Carbon Dioxide Level 23 mmol/L (21-32) Anion Gap 10 (6-14) Blood Urea Nitrogen 23 mg/dL (8-26) Creatinine 1.3 mg/dL (0.7-1.3) Estimated GFR (Cockcroft-Gault) 55.4 Glucose Level 169 mg/dL (70-99) Calcium Level 8.8 mg/dL (8.5-10.1) Troponin I Quantitative 0.117 ng/mL (0.000-0.055) RQ-Haa-T-Type Natriuretic Peptide 18 pg/mL (0-124) SARS-CoV-2 Antigen (Rapid) Negative (NEGATIVE) Laboratory Tests Test 03/18/20 05:10 03/18/20 05:13 03/18/20 05:40 03/18/20 06:25 White Blood Count 10.3 x10^3/uL (4.0-11.0) Red Blood Count 4.86 x10^6/uL (4.30-5.70) Hemoglobin 14.0 g/dL (13.0-17.5) Hematocrit 41.4 % (39.0-53.0) Mean Corpuscular Volume 85 fL (79-100) Mean Corpuscular Hemoglobin 29 pg (25-35) Mean Corpuscular Hemoglobin Concent 34 g/dL (31-37) Red Cell Distribution Width 15.0 % (11.5-14.5) Platelet Count 373 x10^3/uL (140-400) Neutrophils (%) (Auto) 48 % (31-73) Lymphocytes (%) (Auto) 38 % (24-48) Monocytes (%) (Auto) 10 % (0-9) Eosinophils (%) (Auto) 3 % (0-3) Basophils (%) (Auto) 1 % (0-3) Neutrophils # (Auto) 5.0 x10^3/uL (1.8-7.7) Lymphocytes # (Auto) 3.9 x10^3/uL (1.0-4.8) Monocytes # (Auto) 1.0 x10^3/uL (0.0-1.1) Eosinophils # (Auto) 0.3 x10^3/uL (0.0-0.7) Basophils # (Auto) 0.1 x10^3/uL (0.0-0.2) Bedside Troponin I 0.02 ng/ml (<0.08) Sodium Level 140 mmol/L (136-145) Potassium Level 4.0 mmol/L (3.5-5.1) Chloride Level 107 mmol/L (98-107) Carbon Dioxide Level 23 mmol/L (21-32) Anion Gap 10 (6-14) Blood Urea Nitrogen 23 mg/dL (8-26) Creatinine 1.3 mg/dL (0.7-1.3) Estimated GFR (Cockcroft-Gault) 55.4 Glucose Level 169 mg/dL (70-99) Calcium Level 8.8 mg/dL (8.5-10.1) Troponin I Quantitative 0.117 ng/mL (0.000-0.055) MX-Kro-H-Type Natriuretic Peptide 18 pg/mL (0-124) SARS-CoV-2 Antigen (Rapid) Negative (NEGATIVE) Images Images Chest radiograph: The cardiomediastinal silhouette is normal. The pulmonary vasculature is normal. The lungs and pleural margins are clear. Impression: No evidence of an acute cardiopulmonary process. VTE Prophylaxis Ordered VTE Prophylaxis Devices: Yes VTE Pharmacological Prophylaxi: Yes Assessment/Plan Assessment/Plan A/P: NSTEMI - heparin GTT, nitro gtt. ASA, brillinta. Consult Cardiology. Will give IV verapamil for ongoing angina despite maximal therapy breaking through morphine. Likely needs coronary angiogram for likely occluded Accelerated HTN - likely related to above, not controlled CAD - PCI/stents in 2010 and in 2018 PCI/BMS to LAD Compliance difficulties - has not taken his meds for 3 years and last follow up was 6 yrs ago with cardiology HLD - statin Tobacco use disorder - counseled on cessation Hx of Guillain [place] Past hx of verbalized small AAA - 2.[address] in 2018 Liver mass and adrenal mass previously noted - he has had no follow up on these. FEN - NPO PPX - heparin GTT FULL CODE Dispo - CVC for ongoing unstable angina with breakthrough symptoms despite maximal therapy. Justifications for Admission Other Justification MINNA CAR MD Mar 18, 2020 07:27
[2020-03-18 08:09] LABS: BASO # 0.1 x10^3/uL (0.0-0.2); BASO % 1 % (0-3); EOS # 0.1 x10^3/uL (0.0-0.7); EOS % 1 % (0-3); HEMATOCRIT 40.4 % (39.0-53.0); HEMOGLOBIN 13.7 g/dL (13.0-17.5); LYMPH # 1.7 x10^3/uL (1.0-4.8); LYMPH % 14 % (24-48); MEAN CORPUSCULAR HEMOGLOBIN 29 pg (25-35); MEAN CORPUSCULAR HGB CONC 34 g/dL (31-37); MEAN CORPUSCULAR VOLUME 85 fL (79-100); MONO # 0.5 x10^3/uL (0.0-1.1); MONO % 4 % (0-9); NEUT # 9.9 x10^3/uL (1.8-7.7); NEUT % 80 % (31-73); PLATELET COUNT 350 x10^3/uL (140-400); RED BLOOD COUNT 4.73 x10^6/uL (4.30-5.70); RED CELL DISTRIBUTION WIDTH 14.8 % (11.5-14.5); WHITE BLOOD COUNT 12.4 x10^3/uL (4.0-11.0)
[2020-03-18 08:10] LABS: CALCIUM 8.5 mg/dL (8.5-10.1); CREATININE 1.3 mg/dL (0.7-1.3); GFR 55.4; POTASSIUM 4.4 mmol/L (3.5-5.1)
[2020-03-18] MEDS ORDERED: VERAPAMIL 5 MG/2 ML VIAL. IV PRN (09:15)
[2020-03-18] MEDS ORDERED: HEPARIN for ARTERIAL LINE 1,500 ML ONE (10:24)
[2020-03-18] MEDS ORDERED: LIDOCAINE 1% Multi-Dose 20 ML VIAL. ONE (10:24)
[2020-03-18] MEDS ORDERED: IODIXANOL 320 MG/ML 100 ML VIAL. ONE ×2 (10:24→11:46)
[2020-03-18] MEDS ORDERED: MIDAZOLAM HCL/PF 2 MG/2 ML VIAL. ONE (10:56)
--- NOTE | 2020-03-18 11:00 | PDOC ---
MODERATE SEDATION ASSESSMENT RISKS/ALTERNATIVES Risks/Alternatives Risks and alternatives of this type of sedation and procedure discussed with: RISK/ALTERNATIVES: Patient H & P ON CHART H & P H & P on chart and reviewed for co-morbid conditions and appropriate labs. H&P ON CHART: Yes STATUS PREG STATUS ASSESSED: N/A MEDS/ALLERGIES REVIEWED Meds/Allergies Reviewed Medications and Allergies including time and route of recently administered narcotics and sedatives. MEDS/ALLERGIES REVIEWED: Yes ASA RATING ASA RATING: II AIRWAY ASSESSMENT Airway Assessment Airway patency, oral function limitations, presence of caps, crowns, dentures, partials, and ability to extend neck assessed. AIRWAY ASSESSMENT: Yes MALLAMPATI SCORE MALLAMPATI SCORE: II PRE-SEDATION ASSESSMENT PRE-SEDATION ASSESSMENT: Yes SHANICE PRESCOTT MD Mar 18, 2020 11:00
[2020-03-18] MEDS ORDERED: BIVALIRUDIN 250 MG VIAL. IV ONE ×2 (11:26→11:45)
[2020-03-18] MEDS ORDERED: IODIXANOL 320 MG/ML 100 ML VIAL. IART ONE (11:45)
[2020-03-18] MEDS ORDERED: fentaNYL PF VIAL 100 MCG/2 ML VIAL IV ONE (11:45)
[2020-03-18] MEDS ORDERED: MIDAZOLAM HCL/PF 2 MG/2 ML VIAL. IV ONE (11:45)
[2020-03-18] MEDS ORDERED: CONTRAST GIVEN. MC PRN (11:45)
[2020-03-18] MEDS ORDERED: LIDOCAINE 1% Multi-Dose 20 ML VIAL. INJ ONE (11:45)
[2020-03-18 12:00] VITALS: BP 136/73
[2020-03-18] MEDS ORDERED: IV NORMAL SALINE 1000ML BAG 1,000 ML IV SCH (12:22)
[2020-03-18 12:23] VITALS: BP 143/73
[2020-03-18] MEDS ORDERED: ATROPINE 0.5 MG/5 ML DISP.SYRINGE. IV PRN (12:30)
[2020-03-18] MEDS ORDERED: AMIODARONE 150 MG in IV DEXTROSE 5% 100ML 100 ML IV PRN (12:30)
[2020-03-18] MEDS ORDERED: 0.9 % SODIUM CHLORIDE 10 ML DISP.SYRIN. IV PRN (12:30)
[2020-03-18] MEDS ORDERED: NITROGLYCERIN SUBLINGUAL 0.4 MG BOTTLE OF 25. SL PRN (12:30)
[2020-03-18] MEDS ORDERED: ACETAMINOPHEN 325 MG TABLET. PO PRN (12:30)
[2020-03-18] MEDS ORDERED: LIDOCAINE 2% 100 MG/5 ML SYRINGE. IV PRN (12:30)
[2020-03-18] MEDS ORDERED: fentaNYL PF VIAL 100 MCG/2 ML VIAL IV PRN (12:30)
--- NOTE | 2020-03-18 14:00 | PDOC2 ---
CONSULT Date of Consult Date of Consult DATE: 03/18/20 TIME: 13:52 Reason for Consult Reason for Consult: Chest pain Referring Physician Referring Physician: Dr. Del Real Identification/Chief Complaint Chief Complaint Chest pain Source Source: Chart review, Patient History of Present Illness Reason for Visit: The patient is a 64-year-old male with a history of coronary disease who developed chest pain earlier today. He came to the emergency room and was found to be significantly hypertensive with continued chest discomfort. His EKG showed a sinus rhythm with no acute ST elevation but ST depression in the anterior leads. With medical treatment his blood pressure improved. His pain improved but is still present. Troponin levels are 0.117 and 0.1510. His history is significant for a catheterization 2 years ago that showed a patent previously placed stent in the LAD but a new more proximal stent and the patient received a new stent at that time to the LAD. Unfortunately he has not taking any medications for greater than 1 year. He reports occasional episodes of much milder chest discomfort over the past month. He is alert and oriented. His pain has improved but is still present. Past Medical History Cardiovascular: CAD, HTN Pulmonary: COPD CENTRAL NERVOUS SYSTEM: Other (Guillan-Kempton) GI: No pertinent hx Heme/Onc: No pertinent hx Hepatobiliary: No pertinent hx Psych: No pertinent hx Musculoskeletal: Osteoarthritis Rheumatologic: No pertinent hx Past Surgical History Past Surgical History: Cholecystectomy (Stents to the LAD on 2 separate occasions), Other Family History Family History: Heart Disease Social History 1 pack per day ALCOHOL: occassional Drugs: None Lives: with Family Current Problem List Problem List Problems Medical Problems: (1) CAD (coronary artery disease) Status: Acute (2) Unstable angina Status: Acute Current Medications Current Medications Current Medications Heparin Sodium (Porcine) (Heparin Sodium) 4,000 unit 1X ONCE IV Last administered on 03/18/20at 05:48; Start 03/18/20 at 05:30; Stop 03/18/20 at 05:33; Status DC Heparin Sodium/ Dextrose 250 ml @ 0 mls/hr 1X ONCE IV Last administered on 03/18/20at 06:19; Start 03/18/20 at 05:30; Stop 03/18/20 at 12:28; Status DC Ticagrelor (Brilinta) 180 mg 1X ONCE PO Last administered on 03/18/20at 05:52; Start 03/18/20 at 05:45; Stop 03/18/20 at 05:46; Status DC Hydromorphone HCl (Dilaudid) 1 mg 1X ONCE IVP Last administered on 03/18/20at 05:43; Start 03/18/20 at 05:30; Stop 03/18/20 at 05:32; Status DC Sodium Chloride 1,000 ml @ 1,000 mls/hr 1X ONCE IV Last administered on 03/18/20at 05:52; Start 03/18/20 at 05:30; Stop 03/18/20 at 06:29; Status DC Nitroglycerin/ Dextrose 250 ml @ 0 mls/hr 1X ONCE IV Last administered on 03/18/20at 05:47; Start 03/18/20 at 05:30; Stop 03/18/20 at 05:32; Status DC Nitroglycerin/ Dextrose 250 ml @ As Directed STK-MED ONCE IV ; Start 03/18/20 at 05:32; Stop 03/18/20 at 05:32; Status DC Ondansetron HCl (Zofran) 4 mg STK-MED ONCE .ROUTE ; Start 03/18/20 at 05:36; Stop 03/18/20 at 05:37; Status DC Ondansetron HCl (Zofran) 4 mg PRN Q8HRS PRN IV NAUSEA/VOMITING Last administered on 03/18/20at 05:57; Start 03/18/20 at 05:45; Stop 03/19/20 at 05:44 Morphine Sulfate (Morphine Sulfate) 4 mg PRN Q2HR PRN IV PAIN Last administered on 03/18/20at 08:04; Start 03/18/20 at 05:45; Stop 03/19/20 at 05:44 Fentanyl Citrate (Fentanyl 2ml Vial) 100 mcg STK-MED ONCE .ROUTE ; Start 03/18/20 at 06:00; Stop 03/18/20 at 06:00; Status DC Fentanyl Citrate (Fentanyl 2ml Vial) 50 mcg 1X ONCE IVP Last administered on 03/18/20at 05:00; Start 03/18/20 at 06:30; Stop 03/18/20 at 06:36; Status DC Verapamil HCl (Verapamil) 2.5 mg PRN Q5MIN PRN IV ANGINA Last administered on 03/18/20at 09:40; Start 03/18/20 at 09:15 Iodixanol (Visipaque 320) 100 ml STK-MED ONCE .ROUTE ; Start 03/18/20 at 10:24; Stop 03/18/20 at 10:24; Status DC Lidocaine HCl (Lidocaine 1% 20ml Vial) 20 ml STK-MED ONCE .ROUTE ; Start 03/18/20 at 10:24; Stop 03/18/20 at 10:24; Status DC Heparin Sodium/ Sodium Chloride 1,500 ml @ As Directed STK-MED ONCE .ROUTE ; Start 03/18/20 at 10:24; Stop 03/18/20 at 10:24; Status DC Fentanyl Citrate (Fentanyl 2ml Vial) 100 mcg STK-MED ONCE .ROUTE ; Start 03/18/20 at 10:55; Stop 03/18/20 at 10:56; Status DC Midazolam HCl (Versed) 2 mg STK-MED ONCE .ROUTE ; Start 03/18/20 at 10:56; Stop 03/18/20 at 10:56; Status DC Bivalirudin (Angiomax) 250 mg STK-MED ONCE IV ; Start 03/18/20 at 11:26; Stop 03/18/20 at 11:26; Status DC Heparin Sodium/ Sodium Chloride (HEPARIN for ARTERIAL LINE FLUSH) 1,000 unit 1X ONCE IART Last administered on 03/18/20at 12:01; Start 03/18/20 at 11:45; Stop 03/18/20 at 11:46; Status DC Heparin Sodium/ Sodium Chloride (HEPARIN for ARTERIAL LINE FLUSH) 1,000 unit 1X ONCE IART Last administered on 03/18/20at 12:01; Start 03/18/20 at 11:45; Stop 03/18/20 at 11:46; Status DC Midazolam HCl (Versed) 2 mg 1X ONCE IV Last administered on 03/18/20at 12:02; Start 03/18/20 at 11:45; Stop 03/18/20 at 11:46; Status DC Fentanyl Citrate (Fentanyl 2ml Vial) 100 mcg 1X ONCE IV Last administered on 03/18/20at 12:02; Start 03/18/20 at 11:45; Stop 03/18/20 at 11:46; Status DC Iodixanol (Visipaque 320) 100 ml 1X ONCE IART Last administered on 03/18/20at 12:01; Start 03/18/20 at 11:45; Stop 03/18/20 at 11:46; Status DC Bivalirudin (Angiomax) 250 mg 1X ONCE IV Last administered on 03/18/20at 12:01; Start 03/18/20 at 11:45; Stop 03/18/20 at 11:46; Status DC Lidocaine HCl (Lidocaine 1% 20ml Vial) 18 ml 1X ONCE INJ Last administered on 03/18/20at 12:01; Start 03/18/20 at 11:45; Stop 03/18/20 at 11:46; Status DC Info (CONTRAST GIVEN -- Rx MONITORING) 1 each PRN DAILY PRN MC SEE COMMENTS; Start 03/18/20 at 11:45; Stop 03/20/20 at 11:44 Iodixanol (Visipaque 320) 100 ml STK-MED ONCE .ROUTE ; Start 03/18/20 at 11:46; Stop 03/18/20 at 11:47; Status DC Sodium Chloride (Normal Saline Flush) 3 ml QSHIFT PRN IV AFTER MEDS AND BLOOD DRAWS; Start 03/18/20 at 12:30 Sodium Chloride 1,000 ml @ 75 mls/hr [id number] IV ; Start 03/18/20 at 12:22; Stop 03/18/20 at 20:21 Aspirin (Ecotrin) 81 mg [id number] PO ; Start 03/19/20 at 08:00 Ticagrelor (Brilinta) 90 mg BID PO ; Start 03/19/20 at 09:00 Metoprolol Tartrate (Lopressor) 25 mg BID PO ; Start 03/18/20 at 21:00 Lisinopril (Prinivil) 5 mg DAILY PO ; Start 03/19/20 at 09:00 Atorvastatin Calcium (Lipitor) 20 mg QHS PO ; Start 03/18/20 at 21:00 Acetaminophen (Tylenol) 650 mg PRN Q6HRS PRN PO MILD PAIN / TEMP > 100.3'F; Start 03/18/20 at 12:30 Fentanyl Citrate (Fentanyl 2ml Vial) 50 mcg PRN Q1HR PRN IV MODERATE OR SEVERE PAIN; Start 03/18/20 at 12:30 Nitroglycerin (Nitrostat) 0.4 mg PRN Q5MIN PRN SL CHEST PAIN; Start 03/18/20 at 12:30 Amiodarone HCl 150 mg/Dextrose 103 ml @ 600 mls/hr 1X PRN PRN IV FOR VENTRICULAR TACHYCARDIA; Start 03/18/20 at 12:30 Lidocaine HCl (Lidocaine HCl 2% Abboject) 100 mg 1X PRN PRN IV FOR VENTRICULAR TACHYCARDIA; Start 03/18/20 at 12:30 Atropine Sulfate (ATROPINE 0.5mg SYRINGE) 0.5 mg PRN 1X PRN IV BRADYCARDIA; Start 03/18/20 at 12:30 Active Scripts Active Allergies Allergies: Coded Allergies: No Known Drug Allergies (Unverified , 03/02/18) ROS General: YES: Fatigue Cardiovascular: yes Chest Pain Physical Exam General: mild distress HEENT: Atraumatic Lungs: Clear to auscultation Heart: Regular rate Abdomen: Normal bowel sounds Vitals VITALS Vital Signs Date Time Temp Pulse Resp B/P (MAP) Pulse Ox O2 Delivery O2 Flow Rate FiO2 03/18/20 12:23 72 10 95 Nasal Cannula 2.0 03/18/20 10:44 156/87 (110) 03/18/20 04:57 97.1 97.1 Labs Labs Laboratory Tests Test 03/18/20 05:10 03/18/20 05:13 03/18/20 05:40 03/18/20 06:25 White Blood Count 10.3 x10^3/uL (4.0-11.0) Red Blood Count 4.86 x10^6/uL (4.30-5.70) Hemoglobin 14.0 g/dL (13.0-17.5) Hematocrit 41.4 % (39.0-53.0) Mean Corpuscular Volume 85 fL (79-100) Mean Corpuscular Hemoglobin 29 pg (25-35) Mean Corpuscular Hemoglobin Concent 34 g/dL (31-37) Red Cell Distribution Width 15.0 % (11.5-14.5) Platelet Count 373 x10^3/uL (140-400) Neutrophils (%) (Auto) 48 % (31-73) Lymphocytes (%) (Auto) 38 % (24-48) Monocytes (%) (Auto) 10 % (0-9) Eosinophils (%) (Auto) 3 % (0-3) Basophils (%) (Auto) 1 % (0-3) Neutrophils # (Auto) 5.0 x10^3/uL (1.8-7.7) Lymphocytes # (Auto) 3.9 x10^3/uL (1.0-4.8) Monocytes # (Auto) 1.0 x10^3/uL (0.0-1.1) Eosinophils # (Auto) 0.3 x10^3/uL (0.0-0.7) Basophils # (Auto) 0.1 x10^3/uL (0.0-0.2) Bedside Troponin I 0.02 ng/ml (<0.08) Sodium Level 140 mmol/L (136-145) Potassium Level 4.0 mmol/L (3.5-5.1) Chloride Level 107 mmol/L (98-107) Carbon Dioxide Level 23 mmol/L (21-32) Anion Gap 10 (6-14) Blood Urea Nitrogen 23 mg/dL (8-26) Creatinine 1.3 mg/dL (0.7-1.3) Estimated GFR (Cockcroft-Gault) 55.4 Glucose Level 169 mg/dL (70-99) Calcium Level 8.8 mg/dL (8.5-10.1) Troponin I Quantitative 0.117 ng/mL (0.000-0.055) SY-Wjl-[id number]-Type Natriuretic Peptide 18 pg/mL (0-124) SARS-CoV-2 Antigen (Rapid) Negative (NEGATIVE) Test 03/18/20 07:40 White Blood Count 12.4 x10^3/uL (4.0-11.0) Red Blood Count 4.73 x10^6/uL (4.30-5.70) Hemoglobin 13.7 g/dL (13.0-17.5) Hematocrit 40.4 % (39.0-53.0) Mean Corpuscular Volume 85 fL (79-100) Mean Corpuscular Hemoglobin 29 pg (25-35) Mean Corpuscular Hemoglobin Concent 34 g/dL (31-37) Red Cell Distribution Width 14.8 % (11.5-14.5) Platelet Count 350 x10^3/uL (140-400) Neutrophils (%) (Auto) 80 % (31-73) Lymphocytes (%) (Auto) 14 % (24-48) Monocytes (%) (Auto) 4 % (0-9) Eosinophils (%) (Auto) 1 % (0-3) Basophils (%) (Auto) 1 % (0-3) Neutrophils # (Auto) 9.9 x10^3/uL (1.8-7.7) Lymphocytes # (Auto) 1.7 x10^3/uL (1.0-4.8) Monocytes # (Auto) 0.5 x10^3/uL (0.0-1.1) Eosinophils # (Auto) 0.1 x10^3/uL (0.0-0.7) Basophils # (Auto) 0.1 x10^3/uL (0.0-0.2) Sodium Level 139 mmol/L (136-145) Potassium Level 4.4 mmol/L (3.5-5.1) Chloride Level 106 mmol/L (98-107) Carbon Dioxide Level 24 mmol/L (21-32) Anion Gap 9 (6-14) Blood Urea Nitrogen 25 mg/dL (8-26) Creatinine 1.3 mg/dL (0.7-1.3) Estimated GFR (Cockcroft-Gault) 55.4 Glucose Level 204 mg/dL (70-99) Calcium Level 8.5 mg/dL (8.5-10.1) Troponin I Quantitative 0.510 ng/mL (0.000-0.055) Laboratory Tests Test 03/18/20 05:10 03/18/20 05:13 03/18/20 05:40 03/18/20 06:25 White Blood Count 10.3 x10^3/uL (4.0-11.0) Red Blood Count 4.86 x10^6/uL (4.30-5.70) Hemoglobin 14.0 g/dL (13.0-17.5) Hematocrit 41.4 % (39.0-53.0) Mean Corpuscular Volume 85 fL (79-100) Mean Corpuscular Hemoglobin 29 pg (25-35) Mean Corpuscular Hemoglobin Concent 34 g/dL (31-37) Red Cell Distribution Width 15.0 % (11.5-14.5) Platelet Count 373 x10^3/uL (140-400) Neutrophils (%) (Auto) 48 % (31-73) Lymphocytes (%) (Auto) 38 % (24-48) Monocytes (%) (Auto) 10 % (0-9) Eosinophils (%) (Auto) 3 % (0-3) Basophils (%) (Auto) 1 % (0-3) Neutrophils # (Auto) 5.0 x10^3/uL (1.8-7.7) Lymphocytes # (Auto) 3.9 x10^3/uL (1.0-4.8) Monocytes # (Auto) 1.0 x10^3/uL (0.0-1.1) Eosinophils # (Auto) 0.3 x10^3/uL (0.0-0.7) Basophils # (Auto) 0.1 x10^3/uL (0.0-0.2) Bedside Troponin I 0.02 ng/ml (<0.08) Sodium Level 140 mmol/L (136-145) Potassium Level 4.0 mmol/L (3.5-5.1) Chloride Level 107 mmol/L (98-107) Carbon Dioxide Level 23 mmol/L (21-32) Anion Gap 10 (6-14) Blood Urea Nitrogen 23 mg/dL (8-26) Creatinine 1.3 mg/dL (0.7-1.3) Estimated GFR (Cockcroft-Gault) 55.4 Glucose Level 169 mg/dL (70-99) Calcium Level 8.8 mg/dL (8.5-10.1) Troponin I Quantitative 0.117 ng/mL (0.000-0.055) YB-Jas-U-Type Natriuretic Peptide 18 pg/mL (0-124) SARS-CoV-2 Antigen (Rapid) Negative (NEGATIVE) Test 03/18/20 07:40 White Blood Count 12.4 x10^3/uL (4.0-11.0) Red Blood Count 4.73 x10^6/uL (4.30-5.70) Hemoglobin 13.7 g/dL (13.0-17.5) Hematocrit 40.4 % (39.0-53.0) Mean Corpuscular Volume 85 fL (79-100) Mean Corpuscular Hemoglobin 29 pg (25-35) Mean Corpuscular Hemoglobin Concent 34 g/dL (31-37) Red Cell Distribution Width 14.8 % (11.5-14.5) Platelet Count 350 x10^3/uL (140-400) Neutrophils (%) (Auto) 80 % (31-73) Lymphocytes (%) (Auto) 14 % (24-48) Monocytes (%) (Auto) 4 % (0-9) Eosinophils (%) (Auto) 1 % (0-3) Basophils (%) (Auto) 1 % (0-3) Neutrophils # (Auto) 9.9 x10^3/uL (1.8-7.7) Lymphocytes # (Auto) 1.7 x10^3/uL (1.0-4.8) Monocytes # (Auto) 0.5 x10^3/uL (0.0-1.1) Eosinophils # (Auto) 0.1 x10^3/uL (0.0-0.7) Basophils # (Auto) 0.1 x10^3/uL (0.0-0.2) Sodium Level 139 mmol/L (136-145) Potassium Level 4.4 mmol/L (3.5-5.1) Chloride Level 106 mmol/L (98-107) Carbon Dioxide Level 24 mmol/L (21-32) Anion Gap 9 (6-14) Blood Urea Nitrogen 25 mg/dL (8-26) Creatinine 1.3 mg/dL (0.7-1.3) Estimated GFR (Cockcroft-Gault) 55.4 Glucose Level 204 mg/dL (70-99) Calcium Level 8.5 mg/dL (8.5-10.1) Troponin I Quantitative 0.510 ng/mL (0.000-0.055) Assessment/Plan Assessment/Plan 1. Non-ST elevated myocardial infarction. The patient's pain has improved but is still present. He has been treated with heparin, IV nitroglycerin and Brilinta. EKGs as above. In this setting discussed the risks and benefits of cardiac catheterization. I have recommended a cardiac catheterization and the p atient has given consent to proceed. 2. Accelerated hypertension. Improved on IV nitroglycerin. We will continue to monitor. 3. COPD. Continue tobacco abuse. Will commercial counsel on discontinuation. 4. Mild aortic aneurysm of 2.[address] scan 2 years ago. 5. Medical noncompliance. Patient has taken no medication for greater than 1 year. 6. Elevated glucose level. Will monitor. 7. Unknown cholesterol level. Will check lab in the morning. Thank you for allowing us to participate in the care of your patient. SHANICE PRESCOTT MD Mar 18, 2020 14:00
--- NOTE | 2020-03-18 14:09 | EKG ---
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
--- NOTE | 2020-03-18 14:10 | EKG ---
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
[2020-03-18 15:00] VITALS: BP 137/69
--- NOTE | 2020-03-18 16:07 | CARD ---
MR#: [id number] Date of Study: 03/18/2020 Ordering Physician: SHANICE ROMERO, Referring Physician: SHANICE ROMERO, Kuldeep: JONATHAN CONNAUJUSTINSOCO APPROVED REPORT Procedures Left heart catheterization Selective coronary angiogram Left ventriculogram Stent placement to an occluded left circumflex. The patient is a 64-year-old male who presented with episodes of several hours of chest discomfort. Initial EKG showed no acute ST elevation. The patient's second troponin was minimally elevated at 0. 5. He has a history of stent placement to the LAD. In this setting cardiac catheterization and poss ible revascularization were recommended. Risks and benefits were discussed with the patient. He gav e consent to proceed. After informed consent was obtained the patient was brought to the heart catheterization lab. The ar ea the right femoral artery was prepared in the usual manner with Betadine, sterile draping and local anesthetic. An 18-gauge needle was used to enter the right femoral artery, a wire placed and a 6 Fr ench sheath placed over the wire. A 6 Ukrainian JL4 diagnostic catheter was used to engage the left sys tem and sequential injections of various views were obtained. A 6 Ukrainian Kaz right diagnostic c atheter was used to engage the right system and sequential injections in various views were obtained. At this time upon reviewing the films the patient's LAD stents were widely patent. However he had developed a proximal occlusion of the left circumflex vessel. We proceeded to revascularize the vess el. Angiomax as per protocol was given. Initially a JL4 guide was used to engage the left circumflex but did not have adequate support and it was replaced with a JL 5 guide. The lesion was crossed with a PT choice wire. Initial dilatations were with a 2.5 x 15 Euphora balloon with 2 inflations at 10 arabella for 20 seconds. Flow was restored once the wire crossed the lesion. An attempt to place a 3.5 x 23 MultiLink vision bare-metal stent was initially not successful with the stent unable to traverse the curve into the left circumflex. The stent was removed without being deployed. A guide liner was th en advanced into the left circumflex. With this as backup the stent was able to be placed. It was d eployed with 1 arabella at 15 arabella for 15 seconds. Residual lesion was 0%. The system was removed from th e patient. A pigtail catheter was advanced to the left ventricle. Pressures were measured. A 30 de gree RICH left ventriculogram was performed. Pullback pressures were measured. The pigtail was remov ed from the patient. Of note all catheter exchanges were over a J-wire. Injection of the sheath marco wed normal placement. The sheath was removed and sealed with an Angio-Seal product. The patient was then moved to the holding area in improved condition with his chest pain decreasing. Findings. Hemodynamics. LV 140/12, 26. Aortic root 138/88. Coronaries. Left main. The left main was a very short vessel with borderline separate ostia of the LAD and left circumflex. Left anterior descending. The LAD was a large wraparound vessel. It had a proximal 20% lesion. The area of mid stenting was widely patent. Distally there were 20 to 30% areas of lesions. Left circumflex. The left circumflex had a proximal occlusion. Post stenting the patient had distal disease in the 20 to 25% range. Right coronary artery. The right coronary was a moderate size nondominant vessel. It had diffuse mi d disease in the 20 to 30% range. Left ventriculogram. The left ventricle showed intact LV function with an ejection fraction of 50 to 55%. <Conclusion> Severe single-vessel coronary disease with total occlusion of the left circumflex. Successful stenting of the left circumflex with 0% residual. Widely patent previous stenting to the left anterior descending vessel. Diffuse mild to moderate disease in the 20 to 30% range as noted above. Intact LV systolic function with an ejection fraction of 50 to 55%. Fluoro time. 13.7 minutes Dose. 95.19 Gycm2 Contrast. 186 cc Visi Sedation time. 72 minutes. Signed by : Shanice Romero MD Electronically Approved : 03/18/2020 16:07:20
[2020-03-18] MEDS ORDERED: CALCIUM CARBONATE 500 MG TAB.CHEW PO PRN (17:00)
[2020-03-18 19:11] VITALS: BP 147/72
[2020-03-18] MEDS: METOPROLOL TART IMMED RELEASE 25 MG TABLET. PO SCH (20:34)
[2020-03-18] MEDS ORDERED: ATORVASTATIN CALCIUM 20 MG TABLET PO SCH (21:00)
[2020-03-18 23:00] VITALS: BP 153/78
[2020-03-19 02:32] VITALS: BP 138/77
[2020-03-19 07:00] VITALS: BP 150/82
[2020-03-19 07:52] LABS: BASO # 0.1 x10^3/uL (0.0-0.2); BASO % 1 % (0-3); EOS # 0.1 x10^3/uL (0.0-0.7); EOS % 1 % (0-3); HEMATOCRIT 40.3 % (39.0-53.0); HEMOGLOBIN 13.7 g/dL (13.0-17.5); LYMPH # 1.7 x10^3/uL (1.0-4.8); LYMPH % 13 % (24-48); MEAN CORPUSCULAR HEMOGLOBIN 29 pg (25-35); MEAN CORPUSCULAR HGB CONC 34 g/dL (31-37); MEAN CORPUSCULAR VOLUME 85 fL (79-100); MONO % 8 % (0-9); NEUT # 10.3 x10^3/uL (1.8-7.7); NEUT % 78 % (31-73); PLATELET COUNT 311 x10^3/uL (140-400); RED BLOOD COUNT 4.73 x10^6/uL (4.30-5.70); RED CELL DISTRIBUTION WIDTH 14.8 % (11.5-14.5); WHITE BLOOD COUNT 13.2 x10^3/uL (4.0-11.0)
[2020-03-19 08:32] LABS: MAGNESIUM 2.1 mg/dL (1.8-2.4)
[2020-03-19 08:33] LABS: CALCIUM 8.9 mg/dL (8.5-10.1)
[2020-03-19 08:34] LABS: CHOLESTEROL/HDL RATIO 6.7
[2020-03-19] MEDS: ASPIRIN ENTERIC COATED 81 MG TABLET.DR. PO SCH (08:34)
[2020-03-19] MEDS: LISINOPRIL 5 MG TABLET. PO SCH (08:35)
[2020-03-19] MEDS: METOPROLOL TART IMMED RELEASE 25 MG TABLET. PO SCH ×2 (08:35→21:00)
[2020-03-19] MEDS: TICAGRELOR 90 MG TABLET. PO SCH ×2 (08:35→21:00)
--- NOTE | 2020-03-19 09:17 | PDOC ---
PROGRESS NOTES Date of Service: DATE: 03/19/20 TIME: 09:17 Chief Complaint Chief Complaint VTE Prophylaxis Ordered VTE Prophylaxis Devices: Yes VTE Pharmacological Prophylaxi: Yes IMPRESSION Assessment/Plan A/P: NSTEMI - heparin GTT, nitro gtt. ASA, brillinta. Consult Cardiology. Will give IV verapamil for ongoing angina despite maximal therapy breaking through morphine. coronary angiogram for likely occluded Severe single-vessel coronary disease with total occlusion of the left circumflex. Successful stenting of the left circumflex with 0% residual. Widely patent previous stenting to the left anterior descending vessel. Diffuse mild to moderate disease in the 20 to 30% range as noted above. Accelerated HTN - likely related to above, not controlled CAD - PCI/stents in 2010 and in 2018 PCI/BMS to LAD Compliance difficulties - has not taken his meds for 3 years and last follow up was 6 yrs ago with cardiology HLD - statin Tobacco use disorder - counseled on cessation Hx of [place] J[place] Past hx of verbalized small AAA - 2.[address] in 2018 Liver mass and adrenal mass previously noted - he has had no follow up on these. Small 12 mm right adrenal gland nodule, not seen on prior study. Recommend follow-up CT, versus MRI. FEN - NPO PPX - heparin GTT FULL CODE Dispo - CVC for ongoing unstable angina with breakthrough symptoms despite maximal therapy. 33 cc MIN PT EXAM, CHART REVIEW, > 50% OF TIME SPENT WITH EXAM, CHART REVIEW, PT care coordination History of Present Illness History of Present Illness Identification/Chief Complaint Chief Complaint Chest pain Source Source: Patient History of Present Illness History of Present Illness Mr Herrera is a 64-year-old male w/ PMHx CAD s/p stents, guillan-barre, smoker who presents via EMS for sudden onset chest pain that awoke him from sleep roughly 45 minutes prior to arrival around 0500 He states the pain is a chest like pressure sensation radiating to his left neck. Does note some associated shortness of breath. Does note associated diaphoresis and nausea. Denies vomiting. He also notes right sided pain and swelling of his right jaw and right neck as well as right arm numbness. Denies feelings of rapid or irregular heartbeat. Notes this feels similar to his previous AL 2 years ago with BMS to his LAD after a 95% occlusion was discovered. He states he is not taken his medication in over a year because he is stubborn, he calls himself an idiot for this. He does not even know his medications. Denies any alcohol or drug abuse. Denies syncope. Denies any back pain. Denies numbness to the extremities. Denies any weakness in extremities. Denies cough or fever. Denies known exposure to Covid. No other complaints. EKG #1 NSR. Ventricular to [address] depressions in leads V2 through V5. V3 and V4 > 10mm depressions. No acute ST segment elevation appreciated. No obvious elevation in aVR. ST depression does appear new from previous EKG in February 2018 Posterior EKG sinus rhythm. Ventricular rate of 83 bpm. Left axis noted. ST depressions persistent in the anterior precordial leads. No obvious ST elevation appreciated. Chest radiograph negative for acute abnormality Labs significant for WBC 10.3, Hb 14, platelets 373, NA 140, K4, BUN 23, CR 1.3, glucose 169, BNP 18 initial troponin 0.117 Per cardiology recommendations patient given 180 mg of oral Brilinta. Heparin bolus and infusion initiated. Patient did receive full dose aspirin prior to arrival by EMS. Nitroglycerin initiated in ED via GTT. Admitted for close monitoring and cardiac evaluation. Past Medical History Cardiovascular: CAD Pulmonary: COPD CENTRAL NERVOUS SYSTEM: Other GI: No pertinent hx Heme/Onc: No pertinent hx Hepatobiliary: No pertinent hx Psych: No pertinent hx Musculoskeletal: Osteoarthritis Rheumatologic: No pertinent hx Past Surgical History Past Surgical History: Other Family History Family History: Heart Disease Social History Smoke: 1 pack per day ALCOHOL: occassional Drugs: None Current Problem List Problem List Problems Medical Problems: (1) CAD (coronary artery disease) Status: Acute (2) Unstable angina Status: Acute Vitals Vitals Vital Signs Date Time Temp Pulse Resp B/P (MAP) Pulse Ox O2 Delivery O2 Flow Rate FiO2 03/19/20 08:35 83 150/82 03/19/20 07:00 98.7 98 Room Air 98.7 03/19/20 02:32 22 03/18/20 23:00 2.0 Physical Exam General: Alert, Oriented X3, Cooperative, No acute distress Heart: Regular rate, No murmurs Lungs: Clear Abdomen: Normal bowel sounds Extremities: No clubbing, No cyanosis, No edema, Normal pulses, No tenderness/swelling Skin: No rashes, No breakdown, No significant lesion Labs LABS FINDINGS: Lower thorax: Lung bases are clear. Liver: One or 2 adjacent masses identified in the posterior right lobe of the liver, measures approximately 6 cm diameter. This demonstrates discontinuous nodular enhancement on the arterial phase, with progressive fill-in through the delayed images. The enhancement matches the blood pool density. This is most consistent with a hemangioma. Small flash filling lesion identified in the more lateral right lobe, measures 0.7 cm. Spleen: Unremarkable, small accessory splenule Pancreas: Unremarkable Adrenals: Small right adrenal nodule measures 12 mm. Both adrenals otherwise demonstrate a slightly thickened morphology. Kidneys: No obvious mass. Urinary tracts: No hydronephrosis. Gallbladder: Surgically absent Lymph nodes: No significant enlargement Vessels: Aorta is mildly calcified. Small asymmetric infrarenal abdominal aortic aneurysm towards the left, measures 2.9 cm wide. Most of the aneurysm is thrombosed. This measures slightly larger than on the prior study, it was visualized at that time but measured 2.2 cm wide. There is mild fatty stranding in the right inguinal region and around the right femoral artery. This could be related to recent catheterization procedure. GI tract: No evidence of acute colitis. No evidence of bowel obstruction. Appendix is normal. Reproductive organs: Prostate gland is mildly enlarged measuring about 5 cm wide. Urinary bladder: Unremarkable. Peritoneum: No evidence of pneumoperitoneum. No free fluid. Abdominal wall:Unremarkable Spine: Degenerative spondylosis. Mild anterior spondylolisthesis of L5 on S1, with bilateral L5 spondylolysis. Bones: No destructive process identified. IMPRESSION: 1. One or 2 contiguous lesions in the posterior right lobe liver, most likely representing cavernous hemangioma. Another small flash filling lesion in the more lateral right lobe, also likely a hemangioma. 2. Small aortic aneurysm, measures 2.9 cm wide, slightly increased in size from 2010. 3. Mild fatty stranding in the right inguinal region, may be related to recent catheterization. 4. Small 12 mm right adrenal gland nodule, not seen on prior study. Recommend follow-up CT, versus MRI. Electronically signed by: Gianluca Kaplan MD (03/04/2018 11:44 AM) [id number] Procedures Left heart catheterization Selective coronary angiogram Left ventriculogram Stent placement to an occluded left circumflex. The patient is a 64-year-old male who presented with episodes of several hours of chest discomfort. Initial EKG showed no acute ST elevation. The patient's second troponin was minimally elevated at 0.5. He has a history of stent placement to the LAD. In this setting cardiac catheterization and possible revascularization were recommended. Risks and benefits were discussed with the patient. He gave consent to proceed. After informed consent was obtained the patient was brought to the heart catheterization lab. The area the right femoral artery was prepared in the usual manner with Betadine, sterile draping and local anesthetic. An 18-gauge needle was used to enter the right femoral artery, a wire placed and a 6 Ivorian sheath placed over the wire. A 6 Ivorian JL4 diagnostic catheter was used to engage the left system and sequential injections of various views were obtained. A 6 Ivorian Kaz right diagnostic catheter was used to engage the right system and sequential injections in various views were obtained. At this time upon reviewing the films the patient's LAD stents were widely patent. However he had developed a proximal occlusion of the left circumflex vessel. We proceeded to revascularize the vessel. Angiomax as per protocol was given. Initially a JL4 guide was used to engage the left circumflex but did not have adequate support and it was replaced with a JL 5 guide. The lesion was crossed with a PT choice wire. Initial dilatations were with a 2.5 x 15 Euphora balloon with 2 inflations at 10 arabella for 20 seconds. Flow was restored once the wire crossed the lesion. An attempt to place a 3.5 x 23 MultiLink vision bare-metal stent was initially not successful with the stent unable to traverse the curve into the left circumflex. The stent was removed without being deployed. A guide liner was then advanced into the left circumflex. With this as backup the stent was able to be placed. It was deployed with 1 arabella at 15 arabella for 15 seconds. Residual lesion was 0%. The system was removed from the patient. A pigtail catheter was advanced to the left ventricle. Pressures were measured. A 30 degree RICH left ventriculogram was performed. Pullback pressures were measured. The pigtail was removed from the patient. Of note all catheter exchanges were over a J-wire. Injection of the sheath showed normal placement. The sheath was removed and sealed with an Angio-Seal product. The patient was then moved to the holding area in improved condition with his chest pain decreasing. Findings. Hemodynamics. LV 140/12, 26. Aortic root 138/88. Coronaries. Left main. The left main was a very short vessel with borderline separate ostia of the LAD and left circumflex. Left anterior descending. The LAD was a large wraparound vessel. It had a proximal 20% lesion. The area of mid stenting was widely patent. Distally there were 20 to 30% areas of lesions. Left circumflex. The left circumflex had a proximal occlusion. Post stenting the patient had distal disease in the 20 to 25% range. Right coronary artery. The right coronary was a moderate size nondominant vessel. It had diffuse mid disease in the 20 to 30% range. Left ventriculogram. The left ventricle showed intact LV function with an ejection fraction of 50 to 55%. <Conclusion> Severe single-vessel coronary disease with total occlusion of the left circumflex. Successful stenting of the left circumflex with 0% residual. Widely patent previous stenting to the left anterior descending vessel. Diffuse mild to moderate disease in the 20 to 30% range as noted above. Intact LV systolic function with an ejection fraction of 50 to 55%. Fluoro time. 13.7 minutes Dose. 95.19 Gycm2 Contrast. 186 cc Visi Sedation time. 72 minutes. Signed by : Shanice Romero MD Electronically Approved : 03/18/2020 16:07:20 DICTATED and SIGNED BY: SHANICE ROMERO MD DATE: 03/18/20 1223 Laboratory Tests Test 03/18/20 13:30 03/19/20 07:35 Troponin I Quantitative 356.389 ng/mL (0.000-0.055) White Blood Count 13.2 x10^3/uL (4.0-11.0) Red Blood Count 4.73 x10^6/uL (4.30-5.70) Hemoglobin 13.7 g/dL (13.0-17.5) Hematocrit 40.3 % (39.0-53.0) Mean Corpuscular Volume 85 fL (79-100) Mean Corpuscular Hemoglobin 29 pg (25-35) Mean Corpuscular Hemoglobin Concent 34 g/dL (31-37) Red Cell Distribution Width 14.8 % (11.5-14.5) Platelet Count 311 x10^3/uL (140-400) Neutrophils (%) (Auto) 78 % (31-73) Lymphocytes (%) (Auto) 13 % (24-48) Monocytes (%) (Auto) 8 % (0-9) Eosinophils (%) (Auto) 1 % (0-3) Basophils (%) (Auto) 1 % (0-3) Neutrophils # (Auto) 10.3 x10^3/uL (1.8-7.7) Lymphocytes # (Auto) 1.7 x10^3/uL (1.0-4.8) Monocytes # (Auto) 1.0 x10^3/uL (0.0-1.1) Eosinophils # (Auto) 0.1 x10^3/uL (0.0-0.7) Basophils # (Auto) 0.1 x10^3/uL (0.0-0.2) Sodium Level 138 mmol/L (136-145) Potassium Level 4.0 mmol/L (3.5-5.1) Chloride Level 104 mmol/L (98-107) Carbon Dioxide Level 26 mmol/L (21-32) Anion Gap 8 (6-14) Blood Urea Nitrogen 17 mg/dL (8-26) Creatinine 1.0 mg/dL (0.7-1.3) Estimated GFR (Cockcroft-Gault) 75.0 Glucose Level 159 mg/dL (70-99) Calcium Level 8.9 mg/dL (8.5-10.1) Magnesium Level 2.1 mg/dL (1.8-2.4) Triglycerides Level 218 mg/dL (0-150) Cholesterol Level 187 mg/dL (0-200) LDL Cholesterol, Calculated 115 mg/dL (0-100) VLDL Cholesterol, Calculated 44 mg/dL (0-40) Non-HDL Cholesterol Calculated 159 mg/dL (0-129) HDL Cholesterol 28 mg/dL (40-60) Cholesterol/HDL Ratio 6.7 Assessment and Plan Assessmemt and Plan Problems Medical Problems: (1) CAD (coronary artery disease) Status: Acute (2) Unstable angina Status: Acute Images Images DPOA REVIEW 17 MIN to patient portal What Is a Power of Senior Business Development Manager? A power of deputy prosecuting attorney (POA) is a legal document giving one person (the agent or [id number]-ly-xouj) the power to act for another person (the principal). The agent can have broad legal authority or limited authority to make legal decisions about the principal's property, finances or medical care. The power of deputy prosecuting attorney is frequently used in the event of a principal's illness or disability, or when the principal can't be present to sign necessary legal documents for financial transactions. A power of deputy prosecuting attorney can end for a number of reasons, such as when the principal dies, the principal revokes it, a court invalidates it, the principal divorces their spouse, who happens to be the agent, or the agent can no longer carry out the outlined responsibilities. Conventional POAs lapse when the creator becomes incapacitated, but a durable POA remains in force to enable the agent to manage the creators affairs, and a springing POA comes into effect only if and when the creator of the POA becomes incapacitated. A medical or healthcare POA enables an agent to make medical decisions on behalf of an incapacitated person. [employer] A power of deputy prosecuting attorney (POA) is a legal document giving one person, the agent or [id number]-tgec the power to act for another person, the principal. The agent can have broad legal authority or limited authority to make decisions about the principal's property, finances or medical care. The power of deputy prosecuting attorney is often used when a principal becomes ill or disabled, or when they can't be present to sign necessary legal documents for financial tr ansactions. Understanding Power of Senior Business Development Manager A power of deputy prosecuting attorney should be considered when planning for long-term care. There are different types of POAs that fall under either a general power of deputy prosecuting attorney or limited power of deputy prosecuting attorney. A general power of deputy prosecuting attorney acts on behalf of the principal in any and all matters, as allowed by the state. The agent under a general POA agreement may be authorized to take care of issues such as handling bank accounts, signing checks, selling property and assets like stocks, f A limited power of deputy prosecuting attorney gives the agent the power to act on behalf of the principal in specific matters or events. For example, the limited POA may explicitly state that the agent is only allowed to manage the principal's fdc accounts. A limited POA may also be limited to a specific period of time (e.g., if the principal will be out of the country for, say, two years). Most [place] of deputy prosecuting attorney documents allow an agent to represent the principal in all property and financial matters as long as the principals mental state of mind is good. If a situation occurs where the principal becomes incapable of ma kenneth decisions for him or herself, the POA agreement would automatically end. However, someone who wants the POA to remain in effect after the persons health deteriorates would need to sign a durable power of deputy prosecuting attorney (DPOA). What is an advance directive? An advance directive is a legal document that says how you want to be cared for if you are unable to make decisions. You can include what medical treatments you would want and who you would trust to make decisions for you. An advance directive can also include other legal documents. A living will is a list of treatment preferences. It can be used to indicate whether you would want cardiopulmonary resuscitation (CPR), tube feedings, a breathing machine, or certain medicines, like antibiotics. The durable power of deputy prosecuting attorney for health care document identifies the person you would want to make medical decisions for you. This person is also called a proxy. Your proxy should be familiar with your values and wishes. How do I get started? You can get advance directive documents for your state from your doctor's office or from http://[email or web address].caringinfo.org. Review the forms, and ask your doctor if you have any questions. Pick a person to be your proxy, and talk it over with that person. Comment Review of Relevant I have reviewed the following items lilian (where applicable) has been applied. Labs Laboratory Tests Test 03/18/20 05:10 03/18/20 05:13 03/18/20 05:40 03/18/20 06:25 White Blood Count 10.3 x10^3/uL (4.0-11.0) Red Blood Count 4.86 x10^6/uL (4.30-5.70) Hemoglobin 14.0 g/dL (13.0-17.5) Hematocrit 41.4 % (39.0-53.0) Mean Corpuscular Volume 85 fL (79-100) Mean Corpuscular Hemoglobin 29 pg (25-35) Mean Corpuscular Hemoglobin Concent 34 g/dL (31-37) Red Cell Distribution Width 15.0 % (11.5-14.5) Platelet Count 373 x10^3/uL (140-400) Neutrophils (%) (Auto) 48 % (31-73) Lymphocytes (%) (Auto) 38 % (24-48) Monocytes (%) (Auto) 10 % (0-9) Eosinophils (%) (Auto) 3 % (0-3) Basophils (%) (Auto) 1 % (0-3) Neutrophils # (Auto) 5.0 x10^3/uL (1.8-7.7) Lymphocytes # (Auto) 3.9 x10^3/uL (1.0-4.8) Monocytes # (Auto) 1.0 x10^3/uL (0.0-1.1) Eosinophils # (Auto) 0.3 x10^3/uL (0.0-0.7) Basophils # (Auto) 0.1 x10^3/uL (0.0-0.2) Bedside Troponin I 0.02 ng/ml (<0.08) Sodium Level 140 mmol/L (136-145) Potassium Level 4.0 mmol/L (3.5-5.1) Chloride Level 107 mmol/L (98-107) Carbon Dioxide Level 23 mmol/L (21-32) Anion Gap 10 (6-14) Blood Urea Nitrogen 23 mg/dL (8-26) Creatinine 1.3 mg/dL (0.7-1.3) Estimated GFR (Cockcroft-Gault) 55.4 Glucose Level 169 mg/dL (70-99) Calcium Level 8.8 mg/dL (8.5-10.1) Troponin I Quantitative 0.117 ng/mL (0.000-0.055) VE-Wya-H-Type Natriuretic Peptide 18 pg/mL (0-124) Coronavirus (PCR) Not detected (Not Detected) SARS-CoV-2 Antigen (Rapid) Negative (NEGATIVE) Test 03/18/20 07:40 03/18/20 13:30 03/19/20 07:35 White Blood Count 12.4 x10^3/uL (4.0-11.0) 13.2 x10^3/uL (4.0-11.0) Red Blood Count 4.73 x10^6/uL (4.30-5.70) 4.73 x10^6/uL (4.30-5.70) Hemoglobin 13.7 g/dL (13.0-17.5) 13.7 g/dL (13.0-17.5) Hematocrit 40.4 % (39.0-53.0) 40.3 % (39.0-53.0) Mean Corpuscular Volume 85 fL (79-100) 85 fL (79-100) Mean Corpuscular Hemoglobin 29 pg (25-35) 29 pg (25-35) Mean Corpuscular Hemoglobin Concent 34 g/dL (31-37) 34 g/dL (31-37) Red Cell Distribution Width 14.8 % (11.5-14.5) 14.8 % (11.5-14.5) Platelet Count 350 x10^3/uL (140-400) 311 x10^3/uL (140-400) Neutrophils (%) (Auto) 80 % (31-73) 78 % (31-73) Lymphocytes (%) (Auto) 14 % (24-48) 13 % (24-48) Monocytes (%) (Auto) 4 % (0-9) 8 % (0-9) Eosinophils (%) (Auto) 1 % (0-3) 1 % (0-3) Basophils (%) (Auto) 1 % (0-3) 1 % (0-3) Neutrophils # (Auto) 9.9 x10^3/uL (1.8-7.7) 10.3 x10^3/uL (1.8-7.7) Lymphocytes # (Auto) 1.7 x10^3/uL (1.0-4.8) 1.7 x10^3/uL (1.0-4.8) Monocytes # (Auto) 0.5 x10^3/uL (0.0-1.1) 1.0 x10^3/uL (0.0-1.1) Eosinophils # (Auto) 0.1 x10^3/uL (0.0-0.7) 0.1 x10^3/uL (0.0-0.7) Basophils # (Auto) 0.1 x10^3/uL (0.0-0.2) 0.1 x10^3/uL (0.0-0.2) Sodium Level 139 mmol/L (136-145) 138 mmol/L (136-145) Potassium Level 4.4 mmol/L (3.5-5.1) 4.0 mmol/L (3.5-5.1) Chloride Level 106 mmol/L (98-107) 104 mmol/L (98-107) Carbon Dioxide Level 24 mmol/L (21-32) 26 mmol/L (21-32) Anion Gap 9 (6-14) 8 (6-14) Blood Urea Nitrogen 25 mg/dL (8-26) 17 mg/dL (8-26) Creatinine 1.3 mg/dL (0.7-1.3) 1.0 mg/dL (0.7-1.3) Estimated GFR (Cockcroft-Gault) 55.4 75.0 Glucose Level 204 mg/dL (70-99) 159 mg/dL (70-99) Calcium Level 8.5 mg/dL (8.5-10.1) 8.9 mg/dL (8.5-10.1) Troponin I Quantitative 0.510 ng/mL (0.000-0.055) 356.389 ng/mL (0.000-0.055) Magnesium Level 2.1 mg/dL (1.8-2.4) Triglycerides Level 218 mg/dL (0-150) Cholesterol Level 187 mg/dL (0-200) LDL Cholesterol, Calculated 115 mg/dL (0-100) VLDL Cholesterol, Calculated 44 mg/dL (0-40) Non-HDL Cholesterol Calculated 159 mg/dL (0-129) HDL Cholesterol 28 mg/dL (40-60) Cholesterol/HDL Ratio 6.7 Laboratory Tests Test 03/18/20 13:30 03/19/20 07:35 Troponin I Quantitative 356.389 ng/mL (0.000-0.055) White Blood Count 13.2 x10^3/uL (4.0-11.0) Red Blood Count 4.73 x10^6/uL (4.30-5.70) Hemoglobin 13.7 g/dL (13.0-17.5) Hematocrit 40.3 % (39.0-53.0) Mean Corpuscular Volume 85 fL (79-100) Mean Corpuscular Hemoglobin 29 pg (25-35) Mean Corpuscular Hemoglobin Concent 34 g/dL (31-37) Red Cell Distribution Width 14.8 % (11.5-14.5) Platelet Count 311 x10^3/uL (140-400) Neutrophils (%) (Auto) 78 % (31-73) Lymphocytes (%) (Auto) 13 % (24-48) Monocytes (%) (Auto) 8 % (0-9) Eosinophils (%) (Auto) 1 % (0-3) Basophils (%) (Auto) 1 % (0-3) Neutrophils # (Auto) 10.3 x10^3/uL (1.8-7.7) Lymphocytes # (Auto) 1.7 x10^3/uL (1.0-4.8) Monocytes # (Auto) 1.0 x10^3/uL (0.0-1.1) Eosinophils # (Auto) 0.1 x10^3/uL (0.0-0.7) Basophils # (Auto) 0.1 x10^3/uL (0.0-0.2) Sodium Level 138 mmol/L (136-145) Potassium Level 4.0 mmol/L (3.5-5.1) Chloride Level 104 mmol/L (98-107) Carbon Dioxide Level 26 mmol/L (21-32) Anion Gap 8 (6-14) Blood Urea Nitrogen 17 mg/dL (8-26) Creatinine 1.0 mg/dL (0.7-1.3) Estimated GFR (Cockcroft-Gault) 75.0 Glucose Level 159 mg/dL (70-99) Calcium Level 8.9 mg/dL (8.5-10.1) Magnesium Level 2.1 mg/dL (1.8-2.4) Triglycerides Level 218 mg/dL (0-150) Cholesterol Level 187 mg/dL (0-200) LDL Cholesterol, Calculated 115 mg/dL (0-100) VLDL Cholesterol, Calculated 44 mg/dL (0-40) Non-HDL Cholesterol Calculated 159 mg/dL (0-129) HDL Cholesterol 28 mg/dL (40-60) Cholesterol/HDL Ratio 6.7 Medications Current Medications Heparin Sodium (Porcine) (Heparin Sodium) 4,000 unit 1X ONCE IV Last administered on 03/18/20at 05:48; Start 03/18/20 at 05:30; Stop 03/18/20 at 05:33; Status DC Heparin Sodium/ Dextrose 250 ml @ 0 mls/hr 1X ONCE IV Last administered on 03/18/20at 06:19; Start 03/18/20 at 05:30; Stop 03/18/20 at 12:28; Status DC Ticagrelor (Brilinta) 180 mg 1X ONCE PO Last administered on 03/18/20at 05:52; Start 03/18/20 at 05:45; Stop 03/18/20 at 05:46; Status DC Hydromorphone HCl (Dilaudid) 1 mg 1X ONCE IVP Last administered on 03/18/20at 05:43; Start 03/18/20 at 05:30; Stop 03/18/20 at 05:32; Status DC Sodium Chloride 1,000 ml @ 1,000 mls/hr 1X ONCE IV Last administered on 03/18/20at 05:52; Start 03/18/20 at 05:30; Stop 03/18/20 at 06:29; Status DC Nitroglycerin/ Dextrose 250 ml @ 0 mls/hr 1X ONCE IV Last administered on 03/18/20at 05:47; Start 03/18/20 at 05:30; Stop 03/18/20 at 05:32; Status DC Nitroglycerin/ Dextrose 250 ml @ As Directed STK-MED ONCE IV ; Start 03/18/20 at 05:32; Stop 03/18/20 at 05:32; Status DC Ondansetron HCl (Zofran) 4 mg STK-MED ONCE .ROUTE ; Start 03/18/20 at 05:36; Stop 03/18/20 at 05:37; Status DC Ondansetron HCl (Zofran) 4 mg PRN Q8HRS PRN IV NAUSEA/VOMITING Last administered on 03/18/20at 17:30; Start 03/18/20 at 05:45; Stop 03/19/20 at 05:44; Status DC Morphine Sulfate (Morphine Sulfate) 4 mg PRN Q2HR PRN IV PAIN Last administered on 03/18/20at 08:04; Start 03/18/20 at 05:45; Stop 03/19/20 at 05:44; Status DC Fentanyl Citrate (Fentanyl 2ml Vial) 100 mcg STK-MED ONCE .ROUTE ; Start 03/18/20 at 06:00; Stop 03/18/20 at 06:00; Status DC Fentanyl Citrate (Fentanyl 2ml Vial) 50 mcg 1X ONCE IVP Last administered on 03/18/20at 05:00; Start 03/18/20 at 06:30; Stop 03/18/20 at 06:36; Status DC Verapamil HCl (Verapamil) 2.5 mg PRN Q5MIN PRN IV ANGINA Last administered on 03/18/20at 09:40; Start 03/18/20 at 09:15 Iodixanol (Visipaque 320) 100 ml STK-MED ONCE .ROUTE ; Start 03/18/20 at 10:24; Stop 03/18/20 at 10:24; Status DC Lidocaine HCl (Lidocaine 1% 20ml Vial) 20 ml STK-MED ONCE .ROUTE ; Start 03/18/20 at 10:24; Stop 03/18/20 at 10:24; Status DC Heparin Sodium/ Sodium Chloride 1,500 ml @ As Directed STK-MED ONCE .ROUTE ; Start 03/18/20 at 10:24; Stop 03/18/20 at 10:24; Status DC Fentanyl Citrate (Fentanyl 2ml Vial) 100 mcg STK-MED ONCE .ROUTE ; Start 03/18/20 at 10:55; Stop 03/18/20 at 10:56; Status DC Midazolam HCl (Versed) 2 mg STK-MED ONCE .ROUTE ; Start 03/18/20 at 10:56; Stop 03/18/20 at 10:56; Status DC Bivalirudin (Angiomax) 250 mg STK-MED ONCE IV ; Start 03/18/20 at 11:26; Stop 03/18/20 at 11:26; Status DC Heparin Sodium/ Sodium Chloride (HEPARIN for ARTERIAL LINE FLUSH) 1,000 unit 1X ONCE IART Last administered on 03/18/20at 12:01; Start 03/18/20 at 11:45; St op 03/18/20 at 11:46; Status DC Heparin Sodium/ Sodium Chloride (HEPARIN for ARTERIAL LINE FLUSH) 1,000 unit 1X ONCE IART Last administered on 03/18/20at 12:01; Start 03/18/20 at 11:45; Stop 03/18/20 at 11:46; Status DC Midazolam HCl (Versed) 2 mg 1X ONCE IV Last administered on 03/18/20at 12:02; Start 03/18/20 at 11:45; Stop 03/18/20 at 11:46; Status DC Fentanyl Citrate (Fentanyl 2ml Vial) 100 mcg 1X ONCE IV Last administered on 03/18/20at 12:02; Start 03/18/20 at 11:45; Stop 03/18/20 at 11:46; Status DC Iodixanol (Visipaque 320) 100 ml 1X ONCE IART Last administered on 03/18/20at 12:01; Start 03/18/20 at 11:45; Stop 03/18/20 at 11:46; Status DC Bivalirudin (Angiomax) 250 mg 1X ONCE IV Last administered on 03/18/20at 12:01; Start 03/18/20 at 11:45; Stop 03/18/20 at 11:46; Status DC Lidocaine HCl (Lidocaine 1% 20ml Vial) 18 ml 1X ONCE INJ Last administered on 03/18/20at 12:01; Start 03/18/20 at 11:45; Stop 03/18/20 at 11:46; Status DC Info (CONTRAST GIVEN -- Rx MONITORING) 1 each PRN DAILY PRN MC SEE COMMENTS; Start 03/18/20 at 11:45; Stop 03/20/20 at 11:44 Iodixanol (Visipaque 320) 100 ml STK-MED ONCE .ROUTE ; Start 03/18/20 at 11:46; Stop 03/18/20 at 11:47; Status DC Sodium Chloride (Normal Saline Flush) 3 ml QSHIFT PRN IV AFTER MEDS AND BLOOD DRAWS; Start 03/18/20 at 12:30 Sodium Chloride 1,000 ml @ 75 mls/hr [id number] IV Last administered on 1 05/18/19at 12:22; Start 03/18/20 at 12:22; Stop 03/18/20 at 20:21; Status DC Aspirin (Ecotrin) 81 mg DAILYWBKFT PO Last administered on 03/19/20at 08:34; Start 03/19/20 at 08:00 Ticagrelor (Brilinta) 90 mg BID PO Last administered on 03/19/20at 08:35; Start 03/19/20 at 09:00 Metoprolol Tartrate (Lopressor) 25 mg BID PO Last administered on 03/19/20at 08:35; Start 03/18/20 at 21:00 Lisinopril (Prinivil) 5 mg DAILY PO Last administered on 03/19/20at 08:35; Start 03/19/20 at 09:00 Atorvastatin Calcium (Lipitor) 20 mg QHS PO Last administered on 03/18/20at 20:34; Start 03/18/20 at 21:00 Acetaminophen (Tylenol) 650 mg PRN Q6HRS PRN PO MILD PAIN / TEMP > 100.3'F Last administered on 03/19/20at 01:18; Start 03/18/20 at 12:30 Fentanyl Citrate (Fentanyl 2ml Vial) 50 mcg PRN Q1HR PRN IV MODERATE OR SEVERE PAIN; Start 03/18/20 at 12:30 Nitroglycerin (Nitrostat) 0.4 mg PRN Q5MIN PRN SL CHEST PAIN; Start 03/18/20 at 12:30 Amiodarone HCl 150 mg/Dextrose 103 ml @ 600 mls/hr 1X PRN PRN IV FOR VENTRICULAR TACHYCARDIA; Start 03/18/20 at 12:30 Lidocaine HCl (Lidocaine HCl 2% Abboject) 100 mg 1X PRN PRN IV FOR VENTRICULAR TACHYCARDIA; Start 03/18/20 at 12:30 Atropine Sulfate (ATROPINE 0.5mg SYRINGE) 0.5 mg PRN 1X PRN IV BRADYCARDIA; Start 03/18/20 at 12:30 Calcium Carbonate/ Glycine (Tums) 500 mg PRN AFTMEALHC PRN PO INDIGESTION Last administered on 03/18/20at 17:30; Start 03/18/20 at 17:00 Active Scripts Active Vitals/I & O Vital Sign - Last 24 Hours 03/18/20 03/18/20 03/18/20 03/18/20 09:24 09:34 09:40 09:44 Pulse 72 70 76 76 B/P (MAP) 157/85 (109) 151/83 (105) 151/83 153/86 (108) Pulse Ox 92 94 95 O2 Delivery Nasal Cannula Nasal Cannula Nasal Cannula O2 Flow Rate 2.0 2.0 2.0 03/18/20 03/18/20 03/18/20 03/18/20 09:54 10:04 10:14 10:24 Pulse 78 74 70 72 B/P (MAP) 159/93 (115) 144/85 (104) 149/88 (108) 157/86 (109) Pulse Ox 95 96 95 96 O2 Delivery Nasal Cannula Nasal Cannula Nasal Cannula Nasal Cannula O2 Flow Rate 2.0 2.0 2.0 2.0 03/18/20 03/18/20 03/18/20 03/18/20 10:34 10:44 12:00 12:02 Temp 98.0 98.0 Pulse 72 72 70 Resp 20 14 B/P (MAP) 146/86 (106) 156/87 (110) 136/73 (94) Pulse Ox 94 96 96 95 O2 Delivery Nasal Cannula Nasal Cannula Nasal Cannula O2 Flow Rate 2.0 2.0 2.0 2.0 03/18/20 03/18/20 03/18/20 03/18/20 12:23 13:00 15:00 19:11 Temp 98.1 98.0 98.1 98.0 Pulse 72 74 86 Resp 10 20 18 B/P (MAP) 137/69 (91) 147/72 (97) Pulse Ox 95 98 98 O2 Delivery Nasal Cannula Nasal Cannula Nasal Cannula Nasal Cannula O2 Flow Rate 2.0 2.0 2.0 2.0 03/18/20 03/18/20 03/18/20 03/19/20 19:15 20:34 23:00 02:32 Temp 98.3 98.1 98.3 98.1 Pulse 86 91 85 Resp 18 22 B/P (MAP) 147/72 153/78 (103) 138/77 (97) Pulse Ox 97 91 O2 Delivery Nasal Cannula Nasal Cannula Nasal Cannula O2 Flow Rate 2.0 2.0 03/19/20 03/19/20 03/19/20 07:00 08:35 08:35 Temp 98.7 98.7 Pulse 83 83 83 B/P (MAP) 150/82 (104) 150/82 150/82 Pulse Ox 98 O2 Delivery Room Air Intake and Output 03/18/20 03/18/20 03/19/20 15:00 23:00 07:00 Intake Total 30 ml 225 ml 550 ml Output Total 700 ml Balance 30 ml 225 ml -150 ml Justicifation of Admission Dx: Justifications for Admission: Justification of Admission Dx: Yes Angina: Unstable Variant AL: Acute NSTEMI FULBRIGHT,JAN W MD Mar 19, 2020 09:17
[2020-03-19 11:10] VITALS: BP 145/78
--- NOTE | 2020-03-19 11:54 | PDOC3 ---
Discharge Summary Date of Admission: Mar 18, 2020 Date of Discharge: Mar 19, 2020 Follow-Up: 3-5 days Admitting Diagnosis comment: DISCHARGE DX Assessment/Plan A/P: NSTEMI - heparin GTT, nitro gtt. ASA, brillinta. Consult Cardiology. Will give IV verapamil for ongoing angina despite maximal therapy breaking through morphine. coronary angiogram for likely occluded Severe single-vessel coronary disease with total occlusion of the left circumflex. Successful stenting of the left circumflex with 0% residual. Widely patent previous stenting to the left anterior descending vessel. Diffuse mild to moderate disease in the 20 to 30% range as noted above. Accelerated HTN - likely related to above, not controlled CAD - PCI/stents in 2010 and in 2017 PCI/BMS to LAD Compliance difficulties - has not taken his meds for 3 years and last follow up was 6 yrs ago with cardiology HLD - statin Tobacco use disorder - counseled on cessation Hx of Phill Jara Past hx of verbalized small AAA - 2.[address] in 2018 Liver mass and adrenal mass previously noted - he has had no follow up on these. Small 12 mm right adrenal gland nodule, not seen on prior study. Recommend follow-up CT, versus MRI. FEN - NPO PPX - heparin GTT FULL CODE Dispo - CVC for ongoing unstable angina with breakthrough symptoms despite maximal therapy. 33 cc MIN PT EXAM, CHART REVIEW, > 50% OF TIME SPENT WITH EXAM, CHART REVIEW, PT care coordination History of Present Illness History of Present Illness Identification/Chief Complaint Chief Complaint Chest pain Source Source: Patient History of Present Illness History of Present Illness Mr Herrera is a 64-year-old male w/ PMHx CAD s/p stents, guillan-barre, smoker who presents via EMS for sudden onset chest pain that awoke him from sleep roughly 45 minutes prior to arrival around 0500 He states the pain is a chest like pressure sensation radiating to his left neck. Does note some associated shortness of breath. Does note associated diaphoresis and nausea. Denies vomiting. He also notes right sided pain and swelling of his right jaw and right neck as well as right arm numbness. Denies feelings of rapid or irregular heartbeat. Notes this feels similar to his previous SC 2 years ago with BMS to his LAD after a 95% occlusion was discovered. He states he is not taken his medication in over a year because he is stubborn, he calls himself an idiot for this. He does not even know his medications. Denies any alcohol or drug abuse. Denies syncope. Denies any back pain. Denies numbness to the extremities. Denies any weakness in extremities. Denies cough or fever. Denies known exposure to Covid. No other complaints. EKG #1 NSR. Ventricular to [address] depressions in leads V2 through V5. V3 and V4 > 10mm depressions. No acute ST segment elevation appreciated. No obvious elevation in aVR. ST depression does appear new from previous EKG in February 2018 Posterior EKG sinus rhythm. Ventricular rate of 83 bpm. Left axis noted. ST depressions persistent in the anterior precordial leads. No obvious ST elevation appreciated. Chest radiograph negative for acute abnormality Labs significant for WBC 10.3, Hb 14, platelets 373, NA 140, K4, BUN 23, CR 1.3, glucose 169, BNP 18 initial troponin 0.117 Per cardiology recommendations patient given 180 mg of oral Brilinta. Heparin bolus and infusion initiated. Patient did receive full dose aspirin prior to arrival by EMS. Nitroglycerin initiated in ED via GTT. Admitted for close monitoring and cardiac evaluation. Past Medical History Cardiovascular: CAD Pulmonary: COPD CENTRAL NERVOUS SYSTEM: Other GI: No pertinent hx Heme/Onc: No pertinent hx Hepatobiliary: No pertinent hx Psych: No pertinent hx Musculoskeletal: Osteoarthritis Rheumatologic: No pertinent hx Past Surgical History Past Surgical History: Other Family History Family History: Heart Disease Social History Smoke: 1 pack per day ALCOHOL: occassional Drugs: None Current Problem List Problem List Problems Medical Problems: (1) CAD (coronary artery disease) Status: Acute (2) Unstable angina Status: Acute Vitals Vitals Vital Signs Date Time Temp Pulse Resp B/P (MAP) Pulse Ox O2 Delivery O2 Flow Rate FiO2 03/19/20 08:35 83 150/82 03/19/20 07:00 98.7 98 Room Air 98.7 03/19/20 02:32 22 03/18/20 23:00 2.0 Physical Exam General: Alert, Oriented X3, Cooperative, No acute distress Heart: Regular rate, No murmurs Lungs: Clear Abdomen: Normal bowel sounds Extremities: No clubbing, No cyanosis, No edema, Normal pulses, No tenderness/swelling Skin: No rashes, No breakdown, No significant lesion FINAL DIAGNOSIS Problems Medical Problems: (1) CAD (coronary artery disease) Status: Acute (2) Unstable angina Status: Acute Brief Hospital Course Mr. Herrera is a 64 old [sex] who presented with [ UNSTABLE ANGINA CONDITION AT DISCHARGE: Improved Discharge Medications Current Medications Heparin Sodium (Porcine) (Heparin Sodium) 4,000 unit 1X ONCE IV Last administered on 03/18/20at 05:48; Start 03/18/20 at 05:30; Stop 03/18/20 at 05:33; Status DC Heparin Sodium/ Dextrose 250 ml @ 0 mls/hr 1X ONCE IV Last administered on 03/18/20at 06:19; Start 03/18/20 at 05:30; Stop 03/18/20 at 12:28; Status DC Ticagrelor (Brilinta) 180 mg 1X ONCE PO Last administered on 03/18/20at 05:52; Start 03/18/20 at 05:45; Stop 03/18/20 at 05:46; Status DC Hydromorphone HCl (Dilaudid) 1 mg 1X ONCE IVP Last administered on 03/18/20at 05:43; Start 03/18/20 at 05:30; Stop 03/18/20 at 05:32; Status DC Sodium Chloride 1,000 ml @ 1,000 mls/hr 1X ONCE IV Last administered on 03/18/20at 05:52; Start 03/18/20 at 05:30; Stop 03/18/20 at 06:29; Status DC Nitroglycerin/ Dextrose 250 ml @ 0 mls/hr 1X ONCE IV Last administered on 03/18/20at 05:47; Start 03/18/20 at 05:30; Stop 03/18/20 at 05:32; Status DC Nitroglycerin/ Dextrose 250 ml @ As Directed STK-MED ONCE IV ; Start 03/18/20 at 05:32; Stop 03/18/20 at 05:32; Status DC Ondansetron HCl (Zofran) 4 mg STK-MED ONCE .ROUTE ; Start 03/18/20 at 05:36; Stop 03/18/20 at 05:37; Status DC Ondansetron HCl (Zofran) 4 mg PRN Q8HRS PRN IV NAUSEA/VOMITING Last administered on 03/18/20at 17:30; Start 03/18/20 at 05:45; Stop 03/19/20 at 05:44; Status DC Morphine Sulfate (Morphine Sulfate) 4 mg PRN Q2HR PRN IV PAIN Last administered on 03/18/20at 08:04; Start 03/18/20 at 05:45; Stop 03/19/20 at 05:44; Status DC Fentanyl Citrate (Fentanyl 2ml Vial) 100 mcg STK-MED ONCE .ROUTE ; Start 03/18/20 at 06:00; Stop 03/18/20 at 06:00; Status DC Fentanyl Citrate (Fentanyl 2ml Vial) 50 mcg 1X ONCE IVP Last administered on 03/18/20at 05:00; Start 03/18/20 at 06:30; Stop 03/18/20 at 06:36; Status DC Verapamil HCl (Verapamil) 2.5 mg PRN Q5MIN PRN IV ANGINA Last administered on 03/18/20at 09:40; Start 03/18/20 at 09:15 Iodixanol (Visipaque 320) 100 ml STK-MED ONCE .ROUTE ; Start 03/18/20 at 10:24; Stop 03/18/20 at 10:24; Status DC Lidocaine HCl (Lidocaine 1% 20ml Vial) 20 ml STK-MED ONCE .ROUTE ; Start 03/18/20 at 10:24; Stop 03/18/20 at 10:24; Status DC Heparin Sodium/ Sodium Chloride 1,500 ml @ As Directed STK-MED ONCE .ROUTE ; Start 03/18/20 at 10:24; Stop 03/18/20 at 10:24; Status DC Fentanyl Citrate (Fentanyl 2ml Vial) 100 mcg STK-MED ONCE .ROUTE ; Start 03/18/20 at 10:55; Stop 03/18/20 at 10:56; Status DC Midazolam HCl (Versed) 2 mg STK-MED ONCE .ROUTE ; Start 03/18/20 at 10:56; Stop 03/18/20 at 10:56; Status DC Bivalirudin (Angiomax) 250 mg STK-MED ONCE IV ; Start 03/18/20 at 11:26; Stop 03/18/20 at 11:26; Status DC Heparin Sodium/ Sodium Chloride (HEPARIN for ARTERIAL LINE FLUSH) 1,000 unit 1X ONCE IART Last administered on 03/18/20at 12:01; Start 03/18/20 at 11:45; Stop 03/18/20 at 11:46; Status DC Heparin Sodium/ Sodium Chloride (HEPARIN for ARTERIAL LINE FLUSH) 1,000 unit 1X ONCE IART Last administered on 03/18/20at 12:01; Start 03/18/20 at 11:45; Stop 03/18/20 at 11:46; Status DC Midazolam HCl (Versed) 2 mg 1X ONCE IV Last administered on 03/18/20at 12:02; Start 03/18/20 at 11:45; Stop 03/18/20 at 11:46; Status DC Fentanyl Citrate (Fentanyl 2ml Vial) 100 mcg 1X ONCE IV Last administered on 03/18/20at 12:02; Start 03/18/20 at 11:45; Stop 03/18/20 at 11:46; Status DC Iodixanol (Visipaque 320) 100 ml 1X ONCE IART Last administered on 03/18/20at 12:01; Start 03/18/20 at 11:45; Stop 03/18/20 at 11:46; Status DC Bivalirudin (Angiomax) 250 mg 1X ONCE IV Last administered on 03/18/20at 12:01; Start 03/18/20 at 11:45; Stop 03/18/20 at 11:46; Status DC Lidocaine HCl (Lidocaine 1% 20ml Vial) 18 ml 1X ONCE INJ Last administered on 03/18/20at 12:01; Start 03/18/20 at 11:45; Stop 03/18/20 at 11:46; Status DC Info (CONTRAST GIVEN -- Rx MONITORING) 1 each PRN DAILY PRN MC SEE COMMENTS; Start 03/18/20 at 11:45; Stop 03/20/20 at 11:44 Iodixanol (Visipaque 320) 100 ml STK-MED ONCE .ROUTE ; Start 03/18/20 at 11:46; Stop 03/18/20 at 11:47; Status DC Sodium Chloride (Normal Saline Flush) 3 ml QSHIFT PRN IV AFTER MEDS AND BLOOD DRAWS; Start 03/18/20 at 12:30 Sodium Chloride 1,000 ml @ 75 mls/hr [id number] IV Last administered on 03/18/20at 12:22; Start 03/18/20 at 12:22; Stop 03/18/20 at 20:21; Status DC Aspirin (Ecotrin) 81 mg DAILYWBKFT PO Last administered on 03/19/20at 08:34; Start 03/19/20 at 08:00 Ticagrelor (Brilinta) 90 mg BID PO Last administered on 03/19/20at 08:35; Start 03/19/20 at 09:00 Metoprolol Tartrate (Lopressor) 25 mg BID PO Last administered on 03/19/20at 08:35; Start 03/18/20 at 21:00 Lisinopril (Prinivil) 5 mg DAILY PO Last administered on 03/19/20at 08:35; Start 03/19/20 at 09:00 Atorvastatin Calcium (Lipitor) 20 mg QHS PO Last administered on 03/18/20at 20:34; Start 03/18/20 at 21:00 Acetaminophen (Tylenol) 650 mg PRN Q6HRS PRN PO MILD PAIN / TEMP > 100.3'F Last administered on 03/19/20at 01:18; Start 03/18/20 at 12:30 Fentanyl Citrate (Fentanyl 2ml Vial) 50 mcg PRN Q1HR PRN IV MODERATE OR SEVERE PAIN; Start 03/18/20 at 12:30 Nitroglycerin (Nitrostat) 0.4 mg PRN Q5MIN PRN SL CHEST PAIN; Start 03/18/20 at 12:30 Amiodarone HCl 150 mg/Dextrose 103 ml @ 600 mls/hr 1X PRN PRN IV FOR VENTRICULAR TACHYCARDIA; Start 03/18/20 at 12:30 Lidocaine HCl (Lidocaine HCl 2% Abboject) 100 mg 1X PRN PRN IV FOR VENTRICULAR TACHYCARDIA; Start 03/18/20 at 12:30 Atropine Sulfate (ATROPINE 0.5mg SYRINGE) 0.5 mg PRN 1X PRN IV BRADYCARDIA; Start 03/18/20 at 12:30 Calcium Carbonate/ Glycine (Tums) 500 mg PRN AFTMEALHC PRN PO INDIGESTION Last administered on 03/18/20at 17:30; Start 03/18/20 at 17:00 Active Scripts Active Vital Signs Vital Signs Date Time Temp Pulse Resp B/P (MAP) Pulse Ox O2 Delivery O2 Flow Rate FiO2 03/19/20 11:10 98.7 83 145/78 (100) 98 Nasal Cannula 98.7 03/19/20 08:00 6.0 03/19/20 02:32 22 Labs Laboratory Tests Test 03/18/20 05:10 03/18/20 05:13 03/18/20 05:40 03/18/20 06:25 White Blood Count 10.3 x10^3/uL (4.0-11.0) Red Blood Count 4.86 x10^6/uL (4.30-5.70) Hemoglobin 14.0 g/dL (13.0-17.5) Hematocrit 41.4 % (39.0-53.0) Mean Corpuscular Volume 85 fL (79-100) Mean Corpuscular Hemoglobin 29 pg (25-35) Mean Corpuscular Hemoglobin Concent 34 g/dL (31-37) Red Cell Distribution Width 15.0 % (11.5-14.5) Platelet Count 373 x10^3/uL (140-400) Neutrophils (%) (Auto) 48 % (31-73) Lymphocytes (%) (Auto) 38 % (24-48) Monocytes (%) (Auto) 10 % (0-9) Eosinophils (%) (Auto) 3 % (0-3) Basophils (%) (Auto) 1 % (0-3) Neutrophils # (Auto) 5.0 x10^3/uL (1.8-7.7) Lymphocytes # (Auto) 3.9 x10^3/uL (1.0-4.8) Monocytes # (Auto) 1.0 x10^3/uL (0.0-1.1) Eosinophils # (Auto) 0.3 x10^3/uL (0.0-0.7) Basophils # (Auto) 0.1 x10^3/uL (0.0-0.2) Bedside Troponin I 0.02 ng/ml (<0.08) Sodium Level 140 mmol/L (136-145) Potassium Level 4.0 mmol/L (3.5-5.1) Chloride Level 107 mmol/L (98-107) Carbon Dioxide Level 23 mmol/L (21-32) Anion Gap 10 (6-14) Blood Urea Nitrogen 23 mg/dL (8-26) Creatinine 1.3 mg/dL (0.7-1.3) Estimated GFR (Cockcroft-Gault) 55.4 Glucose Level 169 mg/dL (70-99) Calcium Level 8.8 mg/dL (8.5-10.1) Troponin I Quantitative 0.117 ng/mL (0.000-0.055) KD-[id number]-[id number]-Type Natriuretic Peptide 18 pg/mL (0-124) Coronavirus (PCR) Not detected (Not Detected) SARS-CoV-2 Antigen (Rapid) Negative (NEGATIVE) Test 03/18/20 07:40 03/18/20 13:30 03/19/20 07:35 White Blood Count 12.4 x10^3/uL (4.0-11.0) 13.2 x10^3/uL (4.0-11.0) Red Blood Count 4.73 x10^6/uL (4.30-5.70) 4.73 x10^6/uL (4.30-5.70) Hemoglobin 13.7 g/dL (13.0-17.5) 13.7 g/dL (13.0-17.5) Hematocrit 40.4 % (39.0-53.0) 40.3 % (39.0-53.0) Mean Corpuscular Volume 85 fL (79-100) 85 fL (79-100) Mean Corpuscular Hemoglobin 29 pg (25-35) 29 pg (25-35) Mean Corpuscular Hemoglobin Concent 34 g/dL (31-37) 34 g/dL (31-37) Red Cell Distribution Width 14.8 % (11.5-14.5) 14.8 % (11.5-14.5) Platelet Count 350 x10^3/uL (140-400) 311 x10^3/uL (140-400) Neutrophils (%) (Auto) 80 % (31-73) 78 % (31-73) Lymphocytes (%) (Auto) 14 % (24-48) 13 % (24-48) Monocytes (%) (Auto) 4 % (0-9) 8 % (0-9) Eosinophils (%) (Auto) 1 % (0-3) 1 % (0-3) Basophils (%) (Auto) 1 % (0-3) 1 % (0-3) Neutrophils # (Auto) 9.9 x10^3/uL (1.8-7.7) 10.3 x10^3/uL (1.8-7.7) Lymphocytes # (Auto) 1.7 x10^3/uL (1.0-4.8) 1.7 x10^3/uL (1.0-4.8) Monocytes # (Auto) 0.5 x10^3/uL (0.0-1.1) 1.0 x10^3/uL (0.0-1.1) Eosinophils # (Auto) 0.1 x10^3/uL (0.0-0.7) 0.1 x10^3/uL (0.0-0.7) Basophils # (Auto) 0.1 x10^3/uL (0.0-0.2) 0.1 x10^3/uL (0.0-0.2) Sodium Level 139 mmol/L (136-145) 138 mmol/L (136-145) Potassium Level 4.4 mmol/L (3.5-5.1) 4.0 mmol/L (3.5-5.1) Chloride Level 106 mmol/L (98-107) 104 mmol/L (98-107) Carbon Dioxide Level 24 mmol/L (21-32) 26 mmol/L (21-32) Anion Gap 9 (6-14) 8 (6-14) Blood Urea Nitrogen 25 mg/dL (8-26) 17 mg/dL (8-26) Creatinine 1.3 mg/dL (0.7-1.3) 1.0 mg/dL (0.7-1.3) Estimated GFR (Cockcroft-Gault) 55.4 75.0 Glucose Level 204 mg/dL (70-99) 159 mg/dL (70-99) Calcium Level 8.5 mg/dL (8.5-10.1) 8.9 mg/dL (8.5-10.1) Troponin I Quantitative 0.510 ng/mL (0.000-0.055) 356.389 ng/mL (0.000-0.055) Magnesium Level 2.1 mg/dL (1.8-2.4) Triglycerides Level 218 mg/dL (0-150) Cholesterol Level 187 mg/dL (0-200) LDL Cholesterol, Calculated 115 mg/dL (0-100) VLDL Cholesterol, Calculated 44 mg/dL (0-40) Non-HDL Cholesterol Calculated 159 mg/dL (0-129) HDL Cholesterol 28 mg/dL (40-60) Cholesterol/HDL Ratio 6.7 Laboratory Tests Test 03/18/20 13:30 03/19/20 07:35 Troponin I Quantitative 356.389 ng/mL (0.000-0.055) White Blood Count 13.2 x10^3/uL (4.0-11.0) Red Blood Count 4.73 x10^6/uL (4.30-5.70) Hemoglobin 13.7 g/dL (13.0-17.5) Hematocrit 40.3 % (39.0-53.0) Mean Corpuscular Volume 85 fL (79-100) Mean Corpuscular Hemoglobin 29 pg (25-35) Mean Corpuscular Hemoglobin Concent 34 g/dL (31-37) Red Cell Distribution Width 14.8 % (11.5-14.5) Platelet Count 311 x10^3/uL (140-400) Neutrophils (%) (Auto) 78 % (31-73) Lymphocytes (%) (Auto) 13 % (24-48) Monocytes (%) (Auto) 8 % (0-9) Eosinophils (%) (Auto) 1 % (0-3) Basophils (%) (Auto) 1 % (0-3) Neutrophils # (Auto) 10.3 x10^3/uL (1.8-7.7) Lymphocytes # (Auto) 1.7 x10^3/uL (1.0-4.8) Monocytes # (Auto) 1.0 x10^3/uL (0.0-1.1) Eosinophils # (Auto) 0.1 x10^3/uL (0.0-0.7) Basophils # (Auto) 0.1 x10^3/uL (0.0-0.2) Sodium Level 138 mmol/L (136-145) Potassium Level 4.0 mmol/L (3.5-5.1) Chloride Level 104 mmol/L (98-107) Carbon Dioxide Level 26 mmol/L (21-32) Anion Gap 8 (6-14) Blood Urea Nitrogen 17 mg/dL (8-26) Creatinine 1.0 mg/dL (0.7-1.3) Estimated GFR (Cockcroft-Gault) 75.0 Glucose Level 159 mg/dL (70-99) Calcium Level 8.9 mg/dL (8.5-10.1) Magnesium Level 2.1 mg/dL (1.8-2.4) Triglycerides Level 218 mg/dL (0-150) Cholesterol Level 187 mg/dL (0-200) LDL Cholesterol, Calculated 115 mg/dL (0-100) VLDL Cholesterol, Calculated 44 mg/dL (0-40) Non-HDL Cholesterol Calculated 159 mg/dL (0-129) HDL Cholesterol 28 mg/dL (40-60) Cholesterol/HDL Ratio 6.7 Allergies Allergies Coded Allergies Type Severity Reaction Last Updated Verified No Known Drug Allergies 03/02/18 No Disposition/Orders: D/C to Home Justicifation of Admission Dx: Justifications for Admission: Justification of Admission Dx: Yes Angina: Unstable Variant SC: Acute NSTEMI JAN AMAYA MD Mar 19, 2020 11:54
[2020-03-19] MEDS ORDERED: METO25TA4 PO (11:57)
[2020-03-19] MEDS ORDERED: ACET325T9 PO (11:57)
[2020-03-19] MEDS ORDERED: ASPI-886 PO (11:57)
[2020-03-19] MEDS ORDERED: NITR0.4T24 SL (11:57)
[2020-03-19] MEDS ORDERED: ATOR20TA58 PO (11:57)
[2020-03-19] MEDS ORDERED: LISI-338 PO (11:57)
[2020-03-19] MEDS ORDERED: TICA90TA PO (11:57)
--- NOTE | 2020-03-19 12:00 | DISCH ---
DISCHARGE INSTRUCTIONS Condition on Discharge Condition on Discharge: Stable Activity After Discharge Activity Instructions for Disc: Activity as tolerated, Avoid exertion Lifting Instructions after Dis: No heavy lifting, No pulling or pushing Driving Instructions after Dis: Do not drive today Weight Bearing Status after Di: As tolerated Diet after Discharge Diet after Discharge: Cardiac Wound Incision Care Wound/Incision Care: Ice to area for comfort Checks after Discharge Checks after discharge: Check blood press - daily Contacting the DR. after DC Call your doctor for: If your condition worsens Treatment/Equipment after DC Adaptive Equipment Issued: JAN Pollard MD Mar 19, 2020 12:00
--- NOTE | 2020-03-19 12:28 | NUR ---
SS following for discharge planning. SS reviewed pt chart and discussed with pt RN. Pt is currently on room air. Pt had heart cath on 03/18/2020. COVID19 negative. Discharge plan is to home when medically ready. SS will continue to follow for discharge planning.
--- NOTE | 2020-03-19 13:06 | PDOC ---
CARDIO Progress Notes Date and Time Date of Service 03/19/20 Time of Evaluation 1300 Subjective Subjective: No Chest Pain, No shortness of breath, No Palpitations Vitals Vitals Vital Signs Date Time Temp Pulse Resp B/P (MAP) Pulse Ox O2 Delivery O2 Flow Rate FiO2 03/19/20 11:10 98.7 83 145/78 (100) 98 Nasal Cannula 98.7 03/19/20 08:00 6.0 03/19/20 02:32 22 Weight Weight [ ] Input and Output Intake and Output Intake and Output 03/19/20 07:00 Intake Total 805 ml Output Total 700 ml Balance 105 ml Intake Oral 580 ml Other 225 ml Output Urine Total 700 ml Laboratory Labs Laboratory Tests Test 03/18/20 13:30 03/19/20 07:35 Troponin I Quantitative 356.389 ng/mL (0.000-0.055) White Blood Count 13.2 x10^3/uL (4.0-11.0) Red Blood Count 4.73 x10^6/uL (4.30-5.70) Hemoglobin 13.7 g/dL (13.0-17.5) Hematocrit 40.3 % (39.0-53.0) Mean Corpuscular Volume 85 fL (79-100) Mean Corpuscular Hemoglobin 29 pg (25-35) Mean Corpuscular Hemoglobin Concent 34 g/dL (31-37) Red Cell Distribution Width 14.8 % (11.5-14.5) Platelet Count 311 x10^3/uL (140-400) Neutrophils (%) (Auto) 78 % (31-73) Lymphocytes (%) (Auto) 13 % (24-48) Monocytes (%) (Auto) 8 % (0-9) Eosinophils (%) (Auto) 1 % (0-3) Basophils (%) (Auto) 1 % (0-3) Neutrophils # (Auto) 10.3 x10^3/uL (1.8-7.7) Lymphocytes # (Auto) 1.7 x10^3/uL (1.0-4.8) Monocytes # (Auto) 1.0 x10^3/uL (0.0-1.1) Eosinophils # (Auto) 0.1 x10^3/uL (0.0-0.7) Basophils # (Auto) 0.1 x10^3/uL (0.0-0.2) Sodium Level 138 mmol/L (136-145) Potassium Level 4.0 mmol/L (3.5-5.1) Chloride Level 104 mmol/L (98-107) Carbon Dioxide Level 26 mmol/L (21-32) Anion Gap 8 (6-14) Blood Urea Nitrogen 17 mg/dL (8-26) Creatinine 1.0 mg/dL (0.7-1.3) Estimated GFR (Cockcroft-Gault) 75.0 Glucose Level 159 mg/dL (70-99) Calcium Level 8.9 mg/dL (8.5-10.1) Magnesium Level 2.1 mg/dL (1.8-2.4) Triglycerides Level 218 mg/dL (0-150) Cholesterol Level 187 mg/dL (0-200) LDL Cholesterol, Calculated 115 mg/dL (0-100) VLDL Cholesterol, Calculated 44 mg/dL (0-40) Non-HDL Cholesterol Calculated 159 mg/dL (0-129) HDL Cholesterol 28 mg/dL (40-60) Cholesterol/HDL Ratio 6.7 Physical Exam HEENT: Neck Supple W Full Motion Chest: Symmetric LUNGS: Clear to Auscultation Heart: S1S2, RRR Abdomen: Soft N/T Extremities: No Edema Neurology: alert, oriented, follow commands Assessment Assessment 1. ACS: S/P PCI/BMS to total occlusion of the LCx. Tolerated well. No significant acute events overnight 2. Accelerated HTN: now controlled 3. CAD; s/p previous PCI/stents. 4. Arrhythmia; few bursts of NSVT noted overnight on tele. Likely reperfusion related 5. Hyperlipidemia; LDL 115 6. Noncompliance; Has not taken meds in > 1 year. Reports stubbornness. 7. Tobaccoism; in remission Recommendations Echo to assess LV systolic function Secondary prevention including DAPT with ASA/Brilinta Continue metoprolol, lisinopril Risk stratification modification Cardiac rehab referral Reinforced importance of treatment compliance. Will monitor overnight and plans for discharge in am Follow up in our office with Dr. Rankin as scheduled. Justicifation of Admission Dx: Justifications for Admission: Justification of Admission Dx: Yes Angina: Unstable Variant ME: Acute NSTEMI PENNY FREDERICK APRN Mar 19, 2020 13:06
[2020-03-19 15:19] VITALS: BP 148/58
[2020-03-19 19:00] VITALS: BP 132/63
[2020-03-19] MEDS ORDERED: ATORVASTATIN CALCIUM 40 MG TABLET. PO SCH (21:00)
[2020-03-19 23:46] VITALS: BP 118/75
[2020-03-20 03:00] VITALS: BP 110/61
[2020-03-20 07:00] VITALS: BP 124/78
[2020-03-20] MEDS: ASPIRIN ENTERIC COATED 81 MG TABLET.DR. PO SCH (08:18)
[2020-03-20] MEDS: TICAGRELOR 90 MG TABLET. PO SCH (08:18)
[2020-03-20] MEDS: LISINOPRIL 5 MG TABLET. PO SCH (08:19)
[2020-03-20] MEDS: METOPROLOL TART IMMED RELEASE 25 MG TABLET. PO SCH (08:20)
--- NOTE | 2020-03-20 09:58 | PDOC ---
PENNY FREDERICK ASSESSMENT TECHNICIAN 03/20/20 0958: CARDIO Progress Notes Date and Time Date of Service 03/20/20 Time of Evaluation 1000 Subjective Subjective: No Chest Pain, No Palpitations, Other (c/o SOA) Vitals Vitals Vital Signs Date Time Temp Pulse Resp B/P (MAP) Pulse Ox O2 Delivery O2 Flow Rate FiO2 03/20/20 08:20 75 124/61 03/20/20 03:00 98.4 98 Room Air 98.4 03/19/20 08:00 6.0 Weight Weight [ ] Input and Output Intake and Output Intake and Output 03/20/20 07:00 Intake Total 1050 ml Output Total 1300 ml Balance -250 ml Intake Oral 1050 ml Output Urine Total 1300 ml Physical Exam HEENT: Neck Supple W Full Motion Chest: Symmetric LUNGS: Clear to Auscultation Heart: S1S2, RRR Abdomen: Soft N/T Extremities: No Edema Neurology: alert, oriented, follow commands Assessment Assessment 1. ACS: S/P PCI/BMS to total occlusion of the LCx. Tolerated well. No significant acute events overnight 2. Accelerated HTN: now well controlled 3. CAD; s/p previous PCI/stents 4. Arrhythmia; few bursts of NSVT note on tele 03/19. None further overnight 5. Hyperlipidemia; LDL 115 6. Noncompliance; Has not taken meds in > 1 year. Reports stubbornness. 7. Tobaccoism; in remission Recommendations Echo today to assess LV systolic function CXR for evaluation of SOA Secondary prevention including DAPT with ASA/Brilinta Continue metoprolol, lisinopril Risk stratification modification Cardiac rehab referral Reinforced importance of treatment compliance. Anticipate discharge this afternoon. Follow up in our office with Dr. Rankin as scheduled. Justicifation of Admission Dx: Justifications for Admission: Justification of Admission Dx: Yes Angina: Unstable Variant NE: Acute NSTEMI SHANICE PRESCOTT MD 03/20/20 1702: CARDIO Progress Notes Assessment Assessment Patient seen and examined I agree with our nurse practitioners assessment and plan. ACS: S/P PCI/BMS to total occlusion of the LCx. Tolerated well. No significant acute events overnight. Echo today with an ejection fraction of 55%. Accelerated HTN: now well controlled CAD; s/p previous PCI/stents to the LAD. Arrhythmia; few bursts of NSVT note on tele 03/19. None further. EF of 55%. Hyperlipidemia; LDL 115. Statins. Noncompliance; Has not taken meds in > 1 year. Again discussed with the patient. Tobaccoism; in remission PENNY FREDERICK APRN Mar 20, 2020 09:58 SHANICE PRESCOTT MD Mar 20, 2020 17:02
[2020-03-20] MEDS ORDERED: ATOR40TA59 PO (10:02)
--- NOTE | 2020-03-20 10:10 | PDOC ---
PROGRESS NOTES Date of Service: DATE: 03/20/20 TIME: 10:10 Chief Complaint Chief Complaint VTE Prophylaxis Ordered VTE Prophylaxis Devices: Yes VTE Pharmacological Prophylaxi: Yes IMPRESSION Assessment/Plan A/P: NSTEMI - heparin GTT, nitro gtt. ASA, brillinta. Consult Cardiology. Will give IV verapamil for ongoing angina despite maximal therapy breaking through morphine. coronary angiogram for likely occluded Severe single-vessel coronary disease with total occlusion of the left circumflex. Successful stenting of the left circumflex with 0% residual. Widely patent previous stenting to the left anterior descending vessel. Diffuse mild to moderate disease in the 20 to 30% range as noted above. Accelerated HTN - likely related to above, not controlled CAD - PCI/stents in 2010 and in 2018 PCI/BMS to LAD Compliance difficulties - has not taken his meds for 3 years and last follow up was 6 yrs ago with cardiology HLD - statin Tobacco use disorder - counseled on cessation Hx of [place] Jara Past hx of verbalized small AAA - 2.[address] in 2018 Liver mass and adrenal mass previously noted - he has had no follow up on these. Small 12 mm right adrenal gland nodule, not seen on prior study. Recommend follow-up CT, versus MRI. FEN - NPO PPX - heparin GTT FULL CODE Dispo - CVC for ongoing unstable angina with breakthrough symptoms despite maximal therapy. 33 cc MIN PT EXAM, CHART REVIEW, > 50% OF TIME SPENT WITH EXAM, CHART REVIEW, PT care coordination History of Present Illness History of Present Illness Identification/Chief Complaint Chief Complaint Chest pain Source Source: Patient History of Present Illness History of Present Illness Mr Herrera is a 64-year-old male w/ PMHx CAD s/p stents, guillan-barre, smoker who presents via EMS for sudden onset chest pain that awoke him from sleep roughly 45 minutes prior to arrival around 0500 He states the pain is a chest like pressure sensation radiating to his left neck. Does note some associated shortness of breath. Does note associated diaphoresis and nausea. Denies vomiting. He also notes right sided pain and swelling of his right jaw and right neck as well as right arm numbness. Denies feelings of rapid or irregular heartbeat. Notes this feels similar to his previous HI 2 years ago with BMS to his LAD after a 95% occlusion was discovered. He states he is not taken his medication in over a year because he is stubborn, he calls himself an idiot for this. He does not even know his medications. Denies any alcohol or drug abuse. Denies syncope. Denies any back pain. Denies numbness to the extremities. Denies any weakness in extremities. Denies cough or fever. Denies known exposure to Covid. No other complaints. EKG #1 NSR. Ventricular to [address] depressions in leads V2 through V5. V3 and V4 > 10mm depressions. No acute ST segment elevation appreciated. No obvious elevation in aVR. ST depression does appear new from previous EKG in February 2018 Posterior EKG sinus rhythm. Ventricular rate of 83 bpm. Left axis noted. ST depressions persistent in the anterior precordial leads. No obvious ST elevation appreciated. Chest radiograph negative for acute abnormality Labs significant for WBC 10.3, Hb 14, platelets 373, NA 140, K4, BUN 23, CR 1.3, glucose 169, BNP 18 initial troponin 0.117 Per cardiology recommendations patient given 180 mg of oral Brilinta. Heparin bolus and infusion initiated. Patient did receive full dose aspirin prior to arrival by EMS. Nitroglycerin initiated in ED via GTT. Admitted for close monitoring and cardiac evaluation. Past Medical History Cardiovascular: CAD Pulmonary: COPD CENTRAL NERVOUS SYSTEM: Other GI: No pertinent hx Heme/Onc: No pertinent hx Hepatobiliary: No pertinent hx Psych: No pertinent hx Musculoskeletal: Osteoarthritis Rheumatologic: No pertinent hx Past Surgical History Past Surgical History: Other Family History Family History: Heart Disease Social History Smoke: 1 pack per day ALCOHOL: occassional Drugs: None Current Problem List Problem List Problems Medical Problems: (1) CAD (coronary artery disease) Status: Acute (2) Unstable angina Status: Acute Vitals Vitals Vital Signs Date Time Temp Pulse Resp B/P (MAP) Pulse Ox O2 Delivery O2 Flow Rate FiO2 03/20/20 08:20 75 124/61 03/20/20 03:00 98.4 98 Room Air 98.4 03/19/20 08:00 6.0 Physical Exam General: Alert, Oriented X3, Cooperative, No acute distress Heart: Regular rate, No murmurs Lungs: Clear Abdomen: Normal bowel sounds Extremities: No clubbing, No cyanosis, No edema, Normal pulses, No tenderness/swelling Skin: No rashes, No breakdown, No significant lesion Assessment and Plan Assessmemt and Plan Problems Medical Problems: (1) CAD (coronary artery disease) Status: Acute (2) Unstable angina Status: Acute Comment Review of Relevant I have reviewed the following items lilian (where applicable) has been applied. Labs Laboratory Tests Test 03/18/20 13:30 03/19/20 07:35 Troponin I Quantitative 356.389 ng/mL (0.000-0.055) White Blood Count 13.2 x10^3/uL (4.0-11.0) Red Blood Count 4.73 x10^6/uL (4.30-5.70) Hemoglobin 13.7 g/dL (13.0-17.5) Hematocrit 40.3 % (39.0-53.0) Mean Corpuscular Volume 85 fL (79-100) Mean Corpuscular Hemoglobin 29 pg (25-35) Mean Corpuscular Hemoglobin Concent 34 g/dL (31-37) Red Cell Distribution Width 14.8 % (11.5-14.5) Platelet Count 311 x10^3/uL (140-400) Neutrophils (%) (Auto) 78 % (31-73) Lymphocytes (%) (Auto) 13 % (24-48) Monocytes (%) (Auto) 8 % (0-9) Eosinophils (%) (Auto) 1 % (0-3) Basophils (%) (Auto) 1 % (0-3) Neutrophils # (Auto) 10.3 x10^3/uL (1.8-7.7) Lymphocytes # (Auto) 1.7 x10^3/uL (1.0-4.8) Monocytes # (Auto) 1.0 x10^3/uL (0.0-1.1) Eosinophils # (Auto) 0.1 x10^3/uL (0.0-0.7) Basophils # (Auto) 0.1 x10^3/uL (0.0-0.2) Sodium Level 138 mmol/L (136-145) Potassium Level 4.0 mmol/L (3.5-5.1) Chloride Level 104 mmol/L (98-107) Carbon Dioxide Level 26 mmol/L (21-32) Anion Gap 8 (6-14) Blood Urea Nitrogen 17 mg/dL (8-26) Creatinine 1.0 mg/dL (0.7-1.3) Estimated GFR (Cockcroft-Gault) 75.0 Glucose Level 159 mg/dL (70-99) Calcium Level 8.9 mg/dL (8.5-10.1) Magnesium Level 2.1 mg/dL (1.8-2.4) Triglycerides Level 218 mg/dL (0-150) Cholesterol Level 187 mg/dL (0-200) LDL Cholesterol, Calculated 115 mg/dL (0-100) VLDL Cholesterol, Calculated 44 mg/dL (0-40) Non-HDL Cholesterol Calculated 159 mg/dL (0-129) HDL Cholesterol 28 mg/dL (40-60) Cholesterol/HDL Ratio 6.7 Thyroid Stimulating Hormone (TSH) 0.649 uIU/mL (0.358-3.74) Medications Current Medications Heparin Sodium (Porcine) (Heparin Sodium) 4,000 unit 1X ONCE IV Last administered on 03/18/20at 05:48; Start 03/18/20 at 05:30; Stop 03/18/20 at 05:33; Status DC Heparin Sodium/ Dextrose 250 ml @ 0 mls/hr 1X ONCE IV Last administered on 03/18/20at 06:19; Start 03/18/20 at 05:30; Stop 03/18/20 at 12:28; Status DC Ticagrelor (Brilinta) 180 mg 1X ONCE PO Last administered on 03/18/20at 05:52; Start 03/18/20 at 05:45; Stop 03/18/20 at 05:46; Status DC Hydromorphone HCl (Dilaudid) 1 mg 1X ONCE IVP Last administered on 03/18/20at 05:43; Start 03/18/20 at 05:30; Stop 03/18/20 at 05:32; Status DC Sodium Chloride 1,000 ml @ 1,000 mls/hr 1X ONCE IV Last administered on 03/18/20at 05:52; Start 03/18/20 at 05:30; Stop 03/18/20 at 06:29; Status DC Nitroglycerin/ Dextrose 250 ml @ 0 mls/hr 1X ONCE IV Last administered on 03/18/20at 05:47; Start 03/18/20 at 05:30; Stop 03/18/20 at 05:32; Status DC Nitroglycerin/ Dextrose 250 ml @ As Directed STK-MED ONCE IV ; Start 03/18/20 at 05:32; Stop 03/18/20 at 05:32; Status DC Ondansetron HCl (Zofran) 4 mg STK-MED ONCE .ROUTE ; Start 03/18/20 at 05:36; Stop 03/18/20 at 05:37; Status DC Ondansetron HCl (Zofran) 4 mg PRN Q8HRS PRN IV NAUSEA/VOMITING Last administered on 03/18/20at 17:30; Start 03/18/20 at 05:45; Stop 03/19/20 at 05:44; Status DC Morphine Sulfate (Morphine Sulfate) 4 mg PRN Q2HR PRN IV PAIN Last administered on 03/18/20at 08:04; Start 03/18/20 at 05:45; Stop 03/19/20 at 05:44; Status DC Fentanyl Citrate (Fentanyl 2ml Vial) 100 mcg STK-MED ONCE .ROUTE ; Start 03/18/20 at 06:00; Stop 03/18/20 at 06:00; Status DC Fentanyl Citrate (Fentanyl 2ml Vial) 50 mcg 1X ONCE IVP Last administered on 03/18/20at 05:00; Start 03/18/20 at 06:30; Stop 03/18/20 at 06:36; Status DC Verapamil HCl (Verapamil) 2.5 mg PRN Q5MIN PRN IV ANGINA Last administered on 03/18/20at 09:40; Start 03/18/20 at 09:15 Iodixanol (Visipaque 320) 100 ml STK-MED ONCE .ROUTE ; Start 03/18/20 at 10:24; Stop 03/18/20 at 10:24; Status DC Lidocaine HCl (Lidocaine 1% 20ml Vial) 20 ml STK-MED ONCE .ROUTE ; Start 03/18/20 at 10:24; Stop 03/18/20 at 10:24; Status DC Heparin Sodium/ Sodium Chloride 1,500 ml @ As Directed STK-MED ONCE .ROUTE ; Start 03/18/20 at 10:24; Stop 03/18/20 at 10:24; Status DC Fentanyl Citrate (Fentanyl 2ml Vial) 100 mcg STK-MED ONCE .ROUTE ; Start 03/18/20 at 10:55; Stop 03/18/20 at 10:56; Status DC Midazolam HCl (Versed) 2 mg STK-MED ONCE .ROUTE ; Start 03/18/20 at 10:56; Stop 03/18/20 at 10:56; Status DC Bivalirudin (Angiomax) 250 mg STK-MED ONCE IV ; Start 03/18/20 at 11:26; Stop 03/18/20 at 11:26; Status DC Heparin Sodium/ Sodium Chloride (HEPARIN for ARTERIAL LINE FLUSH) 1,000 unit 1X ONCE IART Last administered on 03/18/20at 12:01; Start 03/18/20 at 11:45; Stop 03/18/20 at 11:46; Status DC Heparin Sodium/ Sodium Chloride (HEPARIN for ARTERIAL LINE FLUSH) 1,000 unit 1X ONCE IART Last administered on 03/18/20at 12:01; Start 03/18/20 at 11:45; Stop 03/18/20 at 11:46; Status DC Midazolam HCl (Versed) 2 mg 1X ONCE IV Last administered on 03/18/20at 12:02; Start 03/18/20 at 11:45; Stop 03/18/20 at 11:46; Status DC Fentanyl Citrate (Fentanyl 2ml Vial) 100 mcg 1X ONCE IV Last administered on 03/18/20at 12:02; Start 03/18/20 at 11:45; Stop 03/18/20 at 11:46; Status DC Iodixanol (Visipaque 320) 100 ml 1X ONCE IART Last administered on 03/18/20at 12:01; Start 03/18/20 at 11:45; Stop 03/18/20 at 11:46; Status DC Bivalirudin (Angiomax) 250 mg 1X ONCE IV Last administered on 03/18/20at 12:01; Start 03/18/20 at 11:45; Stop 03/18/20 at 11:46; Status DC Lidocaine HCl (Lidocaine 1% 20ml Vial) 18 ml 1X ONCE INJ Last administered on 03/18/20at 12:01; Start 03/18/20 at 11:45; Stop 03/18/20 at 11:46; Status DC Info (CONTRAST GIVEN -- Rx MONITORING) 1 each PRN DAILY PRN MC SEE COMMENTS; Start 03/18/20 at 11:45; Stop 03/20/20 at 11:44 Iodixanol (Visipaque 320) 100 ml STK-MED ONCE .ROUTE ; Start 03/18/20 at 11:46; Stop 03/18/20 at 11:47; Status DC Sodium Chloride (Normal Saline Flush) 3 ml QSHIFT PRN IV AFTER MEDS AND BLOOD DRAWS; Start 03/18/20 at 12:30 Sodium Chloride 1,000 ml @ 75 mls/hr [id number] IV Last administered on 03/18/20at 12:22; Start 03/18/20 at 12:22; Stop 03/18/20 at 20:21; Status DC Aspirin (Ecotrin) 81 mg DAILYWBKFT PO Last administered on 03/20/20at 08:18; Start 03/19/20 at 08:00 Ticagrelor (Brilinta) 90 mg BID PO Last administered on 03/20/20at 08:18; Start 03/19/20 at 09:00 Metoprolol Tartrate (Lopressor) 25 mg BID PO Last administered on 03/20/20at 08:20; Start 03/18/20 at 21:00 Lisinopril (Prinivil) 5 mg DAILY PO Last administered on 03/20/20at 08:19; Start 03/19/20 at 09:00 Atorvastatin Calcium (Lipitor) 20 mg QHS PO Last administered on 03/18/20at 20:34; Start 03/18/20 at 21:00; Stop 03/19/20 at 16:11; Status DC Acetaminophen (Tylenol) 650 mg PRN Q6HRS PRN PO MILD PAIN / TEMP > 100.3'F Last administered on 03/19/20at 01:18; Start 03/18/20 at 12:30 Fentanyl Citrate (Fentanyl 2ml Vial) 50 mcg PRN Q1HR PRN IV MODERATE OR SEVERE PAIN; Start 03/18/20 at 12:30 Nitroglycerin (Nitrostat) 0.4 mg PRN Q5MIN PRN SL CHEST PAIN; Start 03/18/20 at 12:30 Amiodarone HCl 150 mg/Dextrose 103 ml @ 600 mls/hr 1X PRN PRN IV FOR VENTRICULAR TACHYCARDIA; Start 03/18/20 at 12:30 Lidocaine HCl (Lidocaine HCl 2% Abboject) 100 mg 1X PRN PRN IV FOR VENTRICULAR TACHYCARDIA; Start 03/18/20 at 12:30 Atropine Sulfate (ATROPINE 0.5mg SYRINGE) 0.5 mg PRN 1X PRN IV BRADYCARDIA; Start 03/18/20 at 12:30 Calcium Carbonate/ Glycine (Tums) 500 mg PRN AFTMEALHC PRN PO INDIGESTION Last administered on 03/18/20at 17:30; Start 03/18/20 at 17:00 Atorvastatin Calcium (Lipitor) 40 mg QHS PO Last administered on 03/19/20at 21:00; Start 03/19/20 at 21:00 Active Scripts Active Atorvastatin Calcium 40 Mg Tablet 40 Mg PO QHS 30 Days Tylenol (Acetaminophen) 325 Mg Tablet 650 Mg PO PRN Q6HRS PRN 30 Days Aspirin Ec (Aspirin) 81 Mg Tablet.dr 81 Mg PO DAILYWBKFT 30 Days Lisinopril 5 Mg Tablet 5 Mg PO DAILY 30 Days Metoprolol Tartrate 25 Mg Tablet 25 Mg PO BID 30 Days Nitrostat (Nitroglycerin) 0.4 Mg Tab.subl 0.4 Mg SL PRN Q5MIN PRN 30 Days Brilinta (Ticagrelor) 90 Mg Tablet 90 Mg PO BID 30 Days Vitals/I & O Vital Sign - Last 24 Hours 03/19/20 03/19/20 03/19/20 03/19/20 11:10 15:19 19:00 20:00 Temp 98.7 98.5 98.2 98.7 98.5 98.2 Pulse 83 83 88 B/P (MAP) 145/78 (100) 148/58 (88) 132/63 (86) Pulse Ox 98 98 6 O2 Delivery Nasal Cannula Room Air Room Air Room Air 03/19/20 03/19/20 03/20/20 03/20/20 21:00 23:46 03:00 08:19 Temp 98.0 98.4 98.0 98.4 Pulse 83 67 62 75 B/P (MAP) 148/58 118/75 (89) 110/61 (77) 124/70 Pulse Ox 98 98 O2 Delivery Room Air Room Air 03/20/20 08:20 Pulse 75 B/P (MAP) 124/61 Intake and Output 03/19/20 03/19/20 03/20/20 15:00 23:00 07:00 Intake Total 300 ml 550 ml 200 ml Output Total 200 ml 1100 ml Balance 100 ml -550 ml 200 ml Justicifation of Admission Dx: Justifications for Admission: Justification of Admission Dx: Yes Angina: Unstable Variant HI: Acute NSTEMI JAN AMAYA MD Mar 20, 2020 10:10
[2020-03-20 11:00] VITALS: BP 119/75
[2020-03-20 15:00] VITALS: BP 119/56
--- NOTE | 2020-03-20 15:08 | CARD ---
MR#: [id number] Date of Study: 03/20/2020 Ordering Physician: SHANICE PRESCOTT, Referring Physician: SHANICE PRESCOTT, Tech: Montserrat Benitez [facility] APPROVED REPORT EXAM: Two-dimensional and M-mode echocardiogram with Doppler and color Doppler. Other Information Quality : GoodHR: 76bpm INDICATION Chest pain status post PCI. Hx: Previous cardiac stents, HTN, HLP, tobacco abuse. 2D DIMENSIONS RVDd3.9 (2.9-3.5cm)IVSd1.3 (0.7-1.1cm) Aortic Root(2D)3.3 (2.0-3.7cm)LVDd4.6 (3.9-5.9cm) LVOT Diameter2.1 (1.8-2.4cm)PWd1.3 (0.7-1.1cm) LVDs3.5 (2.5-4.0cm)FS (%) 24.2 % SV47.0 mlLVEF(%)48.3 (>50%) Aortic Valve AoV Peak Fernandez.133.8cm/Sridhar Peak GR.7.2mmHg LVOT Peak Fernandez.95.6cm/sAVA (VMAX)2.47cm2 Mitral Valve MV E Henxxvau18.9cm/sMV DECEL PIPD532ji MV A Cwpsazsd32.5cm/sE/A Ratio1.9 MV A Ipxqnivq449rj Pulmonary Valve PV Peak Uoudovpo95.6cm/s Tricuspid Valve TR P. Iitpeyrm357xz/sRAP YEUTQETT76mqVs TR Peak Gr.60ewHhXWDV13tkQe Pulmonary Vein S1 Tvvbjlvu05.7cm/sD2 Vxcuochh50.6cm/s LEFT VENTRICLE The left ventricle is normal size. There is mild concentric left ventricular hypertrophy. Posterobasa l wall hypokinesis. The ejection fraction is estimated at 55%. Transmitral Doppler flow pattern is Gr jazmine II-pseudonormal filling dynamics. RIGHT VENTRICLE The right ventricle is normal size. The right ventricular systolic function is normal. ATRIA Left atrium is mildly dilated. The right atrium size is normal. The interatrial septum is intact with no evidence for an atrial septal defect or patent foramen ovale as noted on 2-D or Doppler imaging. AORTIC VALVE The aortic valve is normal in structure and function. No aortic regurgitation. There is no significan t aortic valvular stenosis. MITRAL VALVE The mitral valve is normal in structure and function. Mild mitral regurgitation. TRICUSPID VALVE The tricuspid valve is normal in structure and function. Trace tricuspid regurgitation. Estimated PAP is 30-35mmHg. PULMONIC VALVE The pulmonary valve is normal in structure and function. Mild to moderate tricuspid regurgitation. GREAT VESSELS The aortic root is normal in size. The ascending aorta is normal in size. The IVC is dilated and tyson apses >50% with inspiration. PERICARDIAL EFFUSION There is no evidence of significant pericardial effusion. Critical Notification Critical Value: No <Conclusion> Posterobasal wall hypokinesis. The ejection fraction is estimated at 55%. Transmitral Doppler flow pattern is Grade II-pseudonormal filling dynamics. Mild mitral regurgitation. Trace tricuspid regurgitation. Estimated PAP is 30-35mmHg. There is no evidence of significant pericardial effusion. Signed by : Julio Cesar Motta, Electronically Approved : 03/20/2020 15:07:27
[2020-03-20] MEDS ORDERED: CLOP75TA PO (16:10)
--- NOTE | 2020-03-20 16:34 | RAD ---
Exam: Chest 2 views INDICATION: Short of air TECHNIQUE: Frontal and lateral views the chest Comparisons: 03/18/2020 FINDINGS: The cardiomediastinal silhouette and pulmonary vessels are within normal limits. Hazy opacity in lungs bilaterally. No pleural effusion. IMPRESSION: Hazy bilateral airspace disease. This may relate to mild pulmonary edema. Electronically signed by: Hilary Franco MD (03/20/2020 4:31 PM) MARTIN
[2020-03-20] MEDS ORDERED: CLOPIDOGREL BISULFATE 75 MG TABLET PO ONE (17:00)
--- NOTE | 2020-03-20 17:14 | NUR ---
DISCHARGED PATIENT TO HOME. DISCHARGE INSTRUCTIONS GIVEN. PIV AND HEART MONITOR REMOVED. ESCORTED PATIENT PER WHEELCHAIR INTO A PRIVATE VEHICLE.
[2020-03-21] MEDS ORDERED: CLOPIDOGREL BISULFATE 75 MG TABLET PO SCH (08:00)
== END 2020-03-20 18:00 | disposition home or self-care (01) | DRG 248 ==
LOC: ER 04:57 → ED HOLD 05:30 → CVICU 11:08
PROVIDERS: ADMIT Internal Medicine; ATTEND Internal Medicine
PROC: 4A023N7 Measurement of Cardiac Sampling and Pressure, Left Heart, Percutaneous Approach (ICD-10-PCS; principal; 2020-03-18)
PROC: 02703DZ Dilation of Coronary Artery, One Artery with Intraluminal Device, Percutaneous Approach (ICD-10-PCS; 2020-03-18)
PROC: B2111ZZ Fluoroscopy of Multiple Coronary Arteries using Low Osmolar Contrast (ICD-10-PCS; 2020-03-18)
PROC: B2151ZZ Fluoroscopy of Left Heart using Low Osmolar Contrast (ICD-10-PCS; 2020-03-18)
DX: I21.4 Non-ST elevation (NSTEMI) myocardial infarction (principal); R65.11 Systemic inflammatory response syndrome (SIRS) of non-infectious origin with acute organ dysfunction; I47.2 Ventricular tachycardia; I10 Essential (primary) hypertension; E78.5 Hyperlipidemia, unspecified; F17.210 Nicotine dependence, cigarettes, uncomplicated; I25.2 Old myocardial infarction; J44.9 Chronic obstructive pulmonary disease, unspecified; Z91.19 Patient's noncompliance with other medical treatment and regimen; Z95.5 Presence of coronary angioplasty implant and graft; M19.90 Unspecified osteoarthritis, unspecified site; Z90.49 Acquired absence of other specified parts of digestive tract; I25.110 Atherosclerotic heart disease of native coronary artery with unstable angina pectoris; Z20.828 Contact with and (suspected) exposure to other viral communicable diseases; R16.0 Hepatomegaly, not elsewhere classified
CPT/HCPCS: 92928; 93458; G0269; 36415; 71045; 71046; 80048; 80061; 83735; 83880; 84443; 84484; 85025; 87426; 93005; 93306; 99152; 99153; C1725; C1760; C1769; C1874; C1887; C1892; J0583; J1170; J1644; J2250; J2270; J2405; J3010; J3490; J7030; Q9967; U0003; C1713; C1771; G0378